=== PATIENT | female | born 1935 | race Caucasian/White ===

== ENCOUNTER → 2024-03-04 13:40 | Outpatient (REF) | payer OTHER, SELFPAY | LOC: HWRCS 13:40 | PROVIDERS: ATTENDING PHYSICIAN Internal Medicine Cardiovascular Disease; FAMILY PHYSICIAN Family Medicine | DX: I35.0 Nonrheumatic aortic (valve) stenosis (principal) | CPT/HCPCS: 93306 ==

== ENCOUNTER 2024-04-08 07:19 | Day surgery (SDC) | payer OTHER, SELFPAY ==
[2024-04-08] VITALS (24 sets, daily range): BP systolic 118–169; BP diastolic 55–116; BMI 26.5
[2024-04-08] MEDS: NSS 216 ML IV (07:58)
[2024-04-08] MEDS: LOW STRENGTH ASPIRIN 81 MG PO (08:05)
[2024-04-08 08:12] LABS: Hematocrit 42.2 % (37.0-47.0); Hemoglobin 14.3 g/dL (12.0-16.0); Mean Corp Hgb Conc. 33.9 g/dL (33.0-37.0); Mean Corpuscular Hgb 30.4 pg (27.0-31.0); Mean Corpuscular Volume 89.8 fL (81.0-99.0); Mean Platelet Volume 10.2 fL (7.4-10.4); Platelet Count 184 10^3/uL (130-400); Red Cell Dist. Width 13.2 % (11.5-14.5); White Blood Cell Count 5.4 10^3/uL (4.8-10.8)
--- NOTE | 2024-04-08 08:19 | CONSULT.STRU ---
Consultation
-
Date/Time Consultation Requested: 04/08/2024
Date/Time Consultation Performed: 04/08/2024
Requesting Provider: Laurel Balbuena MD
Performing Provider: BARTOLO Cartagena
Reason for Consultation: /TAVR
Patient History
Physicians
Family Physician: Jose Pedraza MD
Outpatient Dress Cutter: Jeff David MD
Primary Dress Cutter: Jeff David MD
History of Present Illness
Mrs. Linares (Cierra) is a very pleasant 88 yof that presents with severe symptomatic aortic stenosis associated with SAINI. She states she is a very active patient including vacuuming her pool and house work that requires climbing a flight of stairs.
Patient also state she gets fleeting CP that last for several seconds without any other associated symptoms. Her echocardiogram from 03/04/2024 is notable for EF 70%, aortic valve P/m 78/53, YIFAN 0.7, pk korin. 4.43, trace AI, dense MAC, mild MR, mild
TR, PAP 23-25. The cardiac catheterization from today also shows MV disease. Discussed the pathophysiology and treatment options of /CAD including SAVR/CABG vs. PCI/TAVR. Explained the evaluation process comprising of blood work, CT scan, CT
surgical consult, dental clearance, and a heart team discussion. TAVR booklet, contact information, prescriptions, and appointments give to patient and her daughter. Allowed for and answered questions at bedside.
Past Medical History
Past Medical History: Hypothyroidism, Valvular Disease (Aortic stenosis) and Other (hyperlipidemia, breast calcifications, bilateral breast Ca with radiation)
Past Surgical History
Past Surgical History: Hysterectomy, Orthopedic ((R) TKA) and Other (lumpectomy x2, right arm lymph node resection, capsulectomy of Lens)
Dental History
Dr. Zachary Zarco-- Patient states she is UTD
Family History
Mother: at Age
Father: at Age
Family Medical History: Cancer
Social History
Alcohol: Occasional
Drug: None
Tobacco: Non-Smoker
Personal:
Living: With Spouse
Allergies
Allergy/AdvReac Type Severity Reaction Status Date / Time
metformin Allergy Diarrhea Verified 04/08/24 07:34
sulfite Allergy Diarrhea Verified 04/08/24 07:34
tamoxifen Allergy GI ISSUES Verified 04/08/24 07:34
Home Medications
�Medication �Instructions �Recorded �Confirmed �Type
levothyroxine 75 mcg tablet 75 mcg PO DAILY AT 0700 Thyroid 04/12/22 04/08/24 History
calcium polycarbophil 625 mg 625 mg PO DAILY Constipation 07/13/22 04/08/24 History
tablet (Fiber (calcium
polycarbophil))
glucosamine sulfate 500 mg tablet 500 mg PO BID joint health 07/13/22 04/08/24 History
(Glucosamine)
multivitamin 1 tab PO DAILY Supplement 07/13/22 04/08/24 History
omega 5-mdv-goz-fish oil 1,000 mg 1 cap PO BID High cholesterol 07/13/22 04/08/24 History
(120 mg-180 mg) capsule (Fish Oil)
acetaminophen 500 mg capsule 1,000 mg (2 x 500 mg) PO Q6H #30 07/24/22 04/08/24 Rx
caps
aspirin 325 mg tablet 325 mg PO DAILY #28 tabs 07/24/22 04/08/24 Rx
docusate sodium 100 mg capsule 100 mg PO BID #30 caps 07/24/22 04/08/24 Rx
aspirin 81 mg chewable tablet 81 mg PO DAILY 04/08/24 04/08/24 History
STS%
STS %: 6.57
Review of Systems
-
History Source: Patient
General: Reports Fatigue
HEENT: Reports No Symptoms
Respiratory: Reports SAINI
Cardiac: Reports Chest Pain (fleeting chest pain that last several seconds) and CAD
Abdomen/GI: Reports No Symptoms
: Reports No Symptoms
Musculoskeletal: Reports No Symptoms
Skin: Reports No Symptoms
Neurological: Reports No Symptoms
Vascular: Reports No Symptoms
Physical Exam
Vital Signs
Temp 97.5 F 04/08/24 07:39
Pulse 65 04/08/24 07:59
Resp Rate 20 04/08/24 07:59
Can the patient verbally communicate their pain? Yes 04/08/24 07:54
Actual Weight 72.1 kg 04/08/24 07:38
Body Mass Index (BMI) 26.5 04/08/24 07:38
Labs
03/05/2024
HH: 14.5/43.6
Plt: 144K
BUN/Creatinine: 20/0.9
GFR: 62
Diagnostic Studies
Echocardiogram 03/04/2024:
CONCLUSIONS
Normal left ventricular size, wall thickness and systolic function. No regional
wall motion abnormalities are seen. LV ejection fraction is 70% by Lorenzana's
method of discs. Diastolic function indeterminate.
Normal right ventricular size and function.
Indexed LA volume is mildly abnormal (35 mL/m2).
Mild mitral regurgitation.
Calcified, trileaflet aortic valve with peak and mean gradients of 78 and 53
mmHg, respectively. Estimated YIFAN is 0.7 cm2, using an LVOT of 1.8 cm. Severe
aortic stenosis. Trace aortic regurgitation.
Mild tricuspid regurgitation. Estimated pulmonary artery pressure of 23-25
mmHg, assuming a right atrial pressure of 3 mmHg.
Compared to the previous echo 07/17/2023, there is little significant change.
Cardiac Catheterization 04/08/2024:
CONCLUSIONS
1. Heavily calcified coronary arteries with significant at least two-vessel coronary artery disease.
2. Mid LAD 80 to 90% stenosis at the level of the takeoff of the major diagonal branch with extension of disease into the ostium of the diagonal (Davis 1, 1, 1).
3. Two serial lesions in the mid RCA up to 60 to 70%, calcified
4. Known severe symptomatic aortic stenosis based on last echocardiogram with mean transaortic gradient of 53 mmHg, aortic valve area of 0.7 cm�
5. Multiple attempts were made to obtain IFR of the mid RCA lesions however unsuccessful due to significant drift in 2 separate wires.
RECOMMENDATIONS
1. Heart team discussion with structural heart team in regards to best management approach given significant multivessel coronary artery disease and severe symptomatic aortic stenosis.
2. Aggressive management of cardiovascular risk factors.
Exam
General: Well Developed and Well Nourished
HEENT: Normocephalic and PERRLA
Neck: Trachea Midline
Respiratory: Clear
Cardiac: Regular Rhythm and Murmur (II/ MALINDA)
GI: Soft and Non Tender
Rectal: Deferred by Provider
Skin: Warm and Dry
Neuro: Awake, Alert, Oriented and AO x 3
Psych: Calm
Assessment / Plan
-
Aortic stenosis
Continue TAVR evaluation
Trend creatinine after contrast administration (Rx given)
TAVR CT scan (04/28)
CT surgical consult ([facility] 04/28)
Frailty testing and KCCQ12 at consult
Continue aspirin
Dental clearance
Heart team discussion
CaD--Mid LAD 80 to 90% stenosis at the level of the takeoff of the major diagonal branch with extension of disease into the ostium of the diagonal, two serial lesions in the mid RCA up to 60 to 70%, calcified.
Plan for PCI after CT scan and TAVR to follow
Continue aspirin and atorvastatin
Data Reviewed
-
EKG: Tracing Personally Visualized and interpreted (NSR with 1st degree AVB)
Assurance Senior: Report Reviewed by me and Discussed with Physician
Echo: Report Reviewed by me and Discussed with Physician
Labs: Labs Reviewed by me
Old Records: Reviewed (Dr. David OV)
Total Time Spent with Patient (in minutes): 45
[2024-04-08 08:33] LABS: Blood Urea Nitrogen 26 mg/dl (7-17); Calcium 9.8 mg/dl (8.4-10.2); Carbon Dioxide 25 mmol/L (22-30); Chloride 107 mmol/L (98-107); Estimated Creatinine Clearance 51 ml/min; Glucose 122 mg/dl (70-99); Potassium 4.2 mmol/L (3.5-5.1); Sodium 141 mmol/L (135-145); eGFR > 60.00
[2024-04-08 10:39] LABS: ACT-LR - POC 281 Seconds (116-155)
[2024-04-08 10:55] LABS: ACT-LR - POC 290 Seconds (116-155)
[2024-04-08 11:20] LABS: ACT-LR - POC 282 Seconds (116-155)
[2024-04-08 12:30] LABS: ACT-LR - POC 210 Seconds (116-155)
[2024-04-08] MEDS: NORVASC 5 MG PO (12:32)
[2024-04-08 13:28] LABS: ACT-LR - POC 192 Seconds (116-155)
[2024-04-08 14:20] LABS: ACT-LR - POC 181 Seconds (116-155)
--- NOTE | 2024-04-08 14:28 | ITS.CL.CATH ---
[facility] - Catheterization
Cardiac Catheterization
Procedure Report:
LEFT HEART CATHETERIZATION
Date of Procedure: April 08, 2024
Referring: Jeff David
PROCEDURES:
1. Left heart cath, coronary angiogram.
2. Ultrasound guided access.
3. Multiple attempts were made to obtain IFR of the mid RCA lesions however unsuccessful due to significant drift in 2 separate wires.
INDICATION: Patient is an 88-year-old female with past medical history of hyperlipidemia, not on a statin, hypothyroidism, breast cancer status post radiation x 2 in 1991 with recurrence in 2019 who presents today for a left heart catheterization
prior to being evaluated for possible transcatheter aortic valve replacement for severe symptomatic aortic stenosis in the setting of ongoing dyspnea on exertion. Last echocardiogram is from March 04, 2024 showing LVEF of 70%, mild MR, severe AAS with
transaortic mean gradient of 53 mmHg, aortic valve area of 0.7 cm�
ACCESS:
1. Right radial artery, 5 Korean sheath, under ultrasound guidance. Given significant right subclavian artery stenosis this access had to be aborted.
2. Right common femoral artery, 5 Korean sheath, under ultrasound guidance.
HEMODYNAMICS : (mmHg)
AO (s/d) : 165/73
CORONARY FINDINGS: Heavily calcified coronary arteries and only calcified aortic valve. The left coronary artery was selectively engaged using a 5 Korean JL 5 diagnostic catheter after failing with a JL 4 diagnostic catheter.
DOMINANCE: Right
LEFT MAIN: The left main artery is a large-caliber vessel which gives rise to the left anterior descending artery and the left circumflex artery. There is minimal luminal irregularities.
LEFT ANTERIOR DESCENDING: The left into descending artery is a medium-caliber vessel which gives rise to a large caliber diagonal branch as it courses through the anterior interventricular groove towards the apex. There is a calcified 80 to 90%
stenosis in the mid LAD at the level of the takeoff of the diagonal branch with the ostium of the diagonal branch also involved (Davis 1, 1, 1)
CIRCUMFLEX: The left circumflex artery is a medium caliber vessel which gives rise to 1 major branching obtuse marginal branch. Mid left circumflex into OM1 has diffuse 30 to 40% stenosis
RIGHT CORONARY ARTERY: The right coronary artery is a large-caliber, dominant vessel which gives rise to the right posterior descending artery and the right posterolateral system. It is heavily calcified with 2 serial 60 to 70% stenosis in the mid
RCA. There is mild diffuse atherosclerotic plaque otherwise. iFR was attempted with goal to further stratify in the setting of significant mid LAD and diagonal disease however despite attempting to different wires, there was continuously
significant amount of drift
HEMODYNAMIC ASSESSMENT OF THE MID RCA WITH A VERRATA WIRE: The origin of the right was cannulated with a 5 Fr JR4 guide catheter. Intravenous heparin was administered and the ACT was followed during the procedure. Two hundred micrograms of
intracoronary nitroglycerin was given through the guide catheter. A VERRATA wire was advanced to the guide catheter tip and normalized in the proximal RCA. We attempted multiple different wires and had difficulty initially advancing the wire into
the distal vessel due to significant interaction with the calcium within the vessel despite attempting different beds to the tip of the wire. Eventually when we succeeded advancing our wire into the distal vessel, we recorded multiple IFR values
that were below the ischemic threshold however upon pullback of the wire there were significant drift noted. We re-normalized and attempted to advance the wire again however ran into the same issue which persisted despite using a second Verrata
wire so at that point we decided to not continue further.
SEDATION: 82 minutes of procedural sedation was utilized. An independent medical case manager was present to assist with and help manage the patient's level of consciousness and physiologic status.
RADIATION SUMMARY: Fluoro Time (min): 28.5, Dose (mGy): 1025.3, DAP (Gy.cm2) : 86.14
Closure Device:
1. Vascular band over right radial artery, 10 cc of air.
2. Manual pressure will be held over the right common femoral arterial access once ACT drops below 170 ms
CONCLUSIONS
1. Heavily calcified coronary arteries with significant at least two-vessel coronary artery disease.
2. Mid LAD 80 to 90% stenosis at the level of the takeoff of the major diagonal branch with extension of disease into the ostium of the diagonal (Davis 1, 1, 1).
3. Two serial lesions in the mid RCA up to 60 to 70%, calcified
4. Known severe symptomatic aortic stenosis based on last echocardiogram with mean transaortic gradient of 53 mmHg, aortic valve area of 0.7 cm�
5. Multiple attempts were made to obtain IFR of the mid RCA lesions however unsuccessful due to significant drift in 2 separate wires.
RECOMMENDATIONS
1. Heart team discussion with structural heart team in regards to best management approach given significant multivessel coronary artery disease and severe symptomatic aortic stenosis.
2. Aggressive management of cardiovascular risk factors.
Copy to: Jeff David
Laurel Balbuena MD, FACC, [facility]
[2024-04-08] MEDS: NSS 1000 IV (14:41)
== END 2024-04-08 19:25 | disposition home or self-care (01) ==
LOC: CATH 07:19
PROVIDERS: ATTENDING PHYSICIAN Internal Medicine Interventional Cardiology; FAMILY PHYSICIAN Family Medicine
DX: I08.3 Combined rheumatic disorders of mitral, aortic and tricuspid valves (principal); R06.02 Shortness of breath; I25.10 Atherosclerotic heart disease of native coronary artery without angina pectoris; I44.0 Atrioventricular block, first degree; E78.5 Hyperlipidemia, unspecified; E03.9 Hypothyroidism, unspecified; Z85.3 Personal history of malignant neoplasm of breast; Z79.82 Long term (current) use of aspirin
CPT/HCPCS: 99152; 99153; C1894; C1769; 80048; 85027; 85347; 93454; 93571; Q9967

== ENCOUNTER → 2024-04-28 09:15 | Outpatient (REF) | payer OTHER, SELFPAY | LOC: RAD 09:15 | PROVIDERS: ATTENDING PHYSICIAN Nurse Practitioner Acute Care; FAMILY PHYSICIAN Family Medicine | DX: I35.0 Nonrheumatic aortic (valve) stenosis (principal) | CPT/HCPCS: 74174; 75572; Q9967 ==

== ENCOUNTER 2024-05-19 15:17 | Inpatient (IN) | payer OTHER, SELFPAY ==
[2024-05-19 11:57] VITALS: BP 169/66
[2024-05-19 12:43] VITALS: BMI 27.4
[2024-05-19 12:49] LABS: % Basophils 0.8 % (0-2); % Eosinophils 1.2 % (0-6); % Immature Granulocytes 0.5 % (0-0.5); % Lymphocytes 24.2 % (20.5-51.1); % Monocytes 9.5 % (1.7-9.3); % Neutrophils 63.8 % (42.2-75.2); Absolute Basophils 0.1 10^3/uL (0-0.2); Absolute Eosinophils 0.1 10^3/uL (0-0.7); Absolute Lymphocytes 1.5 10^3/uL (1.2-3.4); Absolute Monocytes 0.6 10^3/uL (0.1-0.6); Absolute Neutrophils 3.9 10^3/uL (1.4-6.5); Hematocrit 32.5 % (37.0-47.0); Hemoglobin 11.2 g/dL (12.0-16.0); Mean Corp Hgb Conc. 34.5 g/dL (33.0-37.0); Mean Corpuscular Hgb 31.5 pg (27.0-31.0); Mean Corpuscular Volume 91.5 fL (81.0-99.0); Mean Platelet Volume 10.8 fL (7.4-10.4); Nucleated Red Blood Cells % 0 %; Platelet Count 136 10^3/uL (130-400); Red Blood Cell Count 3.55 10^6/uL (4.20-5.40); Red Cell Dist. Width 13.7 % (11.5-14.5); White Blood Cell Count 6.1 10^3/uL (4.8-10.8)
[2024-05-19 12:59] LABS: INR 1.11; PT 14.1 Sec (11.4-14.6)
[2024-05-19 13:01] LABS: APTT 35.1 Sec (23.4-35.0)
[2024-05-19 13:02] LABS: ALT (SGPT) 36 U/L (0-35); AST (SGOT) 47 U/L (14-36); Albumin 4.4 g/dl (3.5-5.0); Alkaline Phosphatase 67 U/L (38-126); Blood Urea Nitrogen 32 mg/dl (7-17); Calcium 9.9 mg/dl (8.4-10.2); Carbon Dioxide 25 mmol/L (22-30); Chloride 106 mmol/L (98-107); Estimated Creatinine Clearance 48 ml/min; Glucose 91 mg/dl (70-99); Potassium 4.3 mmol/L (3.5-5.1); Sodium 139 mmol/L (135-145); Total Bilirubin 0.8 mg/dl (0.2-1.3); eGFR > 60.00
--- NOTE | 2024-05-19 13:04 | ED.GENMED ---
History of Present Illness
General
Chief Complaint: Rectal Bleeding
Source: patient
Exam Limitations: none
Time Seen by Provider: 05/19/24 12:43
Nursing documentation reviewed up to this point in time: agreed with
History of Present Illness
History of Present Illness:
88 y/o F with ckd, htn, aortic stenosis, CAD
is scheduled to have cardiac stents tomorrow in prep for AVR
but about 3 days ago started having black tarry stool, was once a day for 2 days and then last night she had 2 'blow outs' which were deep red color and colored the bowl
she has had mild upper abd pain
no thinners
takes baby asa, lsat dose yesterday
no h/o PUD but she has had rectal bleeding before secondary to an infectious colitis years ago
Past History
Past History
ED Past Medical History: Cancer (Breast cancer), Hypercholesterolemia, Valvular disease (Aortic stenosis), Hypothyroidism and Other (Cataracts)
ED Past Surgical History: Gynecological (cataracts) and Orthopedic
Social History
Tobacco: Non-smoker
Alcohol: None
Review of Systems
Review of Systems
Allergies reviewed?: Yes
All Other Systems: Not applicable
Phy Exam
Physical Exam
Physical Exam:
GENERAL: Alert , in no apparent distress, nontoxic, well-appearing
EYE: pupils equal and reactive
NECK: Supple
ENT: o/p clr, mmm.
CARDIAC: Regular rate and rhythm . Loud systolic heart murmur
LUNGS: Clear breath sounds bilaterally, no acute respiratory distress, no wheezes/rales/rhonchi
ABDOMEN: Soft, without focal tenderness, no r/g, no cvat, normal bowel sounds
rectal: melena stoolm deep red in vault, heme +
NEUROLOGICAL: Alert and oriented, no focal neuro deficits
SKIN: Warm and dry, skin intact.
MUSCULOSKELETAL: No edema, well perfused. neg trip's sign
PSYCH: Normal and appropriate interaction.
Course
Orders/Labs/Results
Orders:
Orders
05/19/24 12:26
Cardiac Monitoring- Treatment ONCE
IV Insert/Care/Rem.- Treatment PRN
O2 Therapy [RESP] Urgent
Titrate/Wean O2 to maintain O2 sat greater than (%): 93
Special Instructions: MAINTAIN CONTINOUS O2 SATS > OR = 93%
Pulse Ox/spot Check [RESP] Urgent
Quantity: 1
Special Instructions: ON ROOM AIR
05/19/24 12:28
Type+Screen Urgent
Complete Blood Count/With Diff Urgent
Comprehensive Metabolic Panel Urgent
PTT Urgent
Prothrombin Time Urgent
05/19/24 13:03
CT Abd/Pel (IV only)-DH only Urgent
Comment:
Reason For Exam: melena, abd pain
0.9% Sodium Chloride 500 ml [Nss] 500 ml IV BOLUS
Pantoprazole [Protonix IV] 40 mg IV NOW STA
05/19/24 14:40
CARDIOLOGY CONSULT Routine
Consulting Provider: Neville Neri
Was physician already notified: Yes
Reason for consult: reported gi bleed due for cath/ stents/ avr tmr
05/19/24 14:41
GASTROINTESTINAL CONSULT Routine
Consulting Provider: Chiquita Henderson
Was physician already notified: Yes
Reason for consult: gi bleed
05/19/24 15:05
Admit/Transfer Patient As Directed
Co-Sign Provider:
Level of Care: Inpatient admission
Assign to:: Telemetry
Physician / Group: jaden osman
Diagnosis: gi bleed , hx multivessel cad/ aortic stenosis
Reason for Telemetry: Arrhythmia
Date to Stop Telemetry: 05/22/24
Time to Stop Telemetry: 11:00
Reason for Hospitalization: gi bleed , hx multivessel cad/ aortic stenosis
Expected length of stay greater than two midnights?: Yes
ELOS- Estimated Length of Stay in days: 4
I certify the patient meets the requirements for IP care: Yes
Code Status As Directed
Resuscitation Status: Full Code
05/19/24 20:00
H&H Urgent
05/22/24 11:00
DC Protocol for Telemetry ONCE
Abnormal Lab Results
05/19/24
12:28
RBC 3.55 L 10^6/uL
(4.20-5.40)
Hgb 11.2 L g/dL
(12.0-16.0)
Hct 32.5 L %
(37.0-47.0)
MCH 31.5 H pg
(27.0-31.0)
MPV 10.8 H fL
(7.4-10.4)
Monocytes % 9.5 H %
(1.7-9.3)
APTT 35.1 H Sec
(23.4-35.0)
BUN 32 H mg/dl
(7-17)
AST 47 H U/L
(14-36)
ALT 36 H U/L
(0-35)
05/19/24 12:28
05/19/24 12:28
Vital Signs
Initial and Last Documented VS:
Initial Vital Signs
Temp Pulse Resp BP Pulse Ox
97.4 F 63 18 169/66 96
05/19/24 11:57 05/19/24 11:57 05/19/24 11:57 05/19/24 11:57 05/19/24 11:57
Last Documented Vital Signs
Temp Pulse Resp BP Pulse Ox
97.4 F 55 15 139/68 97
05/19/24 11:57 05/19/24 14:15 05/19/24 14:15 05/19/24 14:00 05/19/24 14:15
MDM/Problems Addressed
Differential Diagnosis Includes:
PUD, GI bleed, divertic
MDM/Problems Addressed:
88 y/o F with h/o
here with upper abd pain and rectal bleeding
black stool ffor a few days and turned to deep red
had some red bleeding last night, with larger volume melena
stable vitals
no thinners
on baby asa
heme + melena stool, formed, in vault
hg stable
protonix, fluids, admit
*Critical Care Note
Total Time (30-74mins, 75-104mins- exclusive of procedures): Not Applicable
ED Attending Note
-
Portions of this chart may have been created with voice recognition software.� Occasional wrong word or��sound alike� substitutions may have occurred due to the inherent limitations of voice recognition software.
Discharge Plan
Departure
Patient Disposition: Admit
Date of Disposition: 05/19/24
Time of Disposition: 13:57
Admit to: Med/Surg
Presentation/result/management discussed w/ accepting MD/DO: Hospitalist
Condition: Fair
Covid-19: Not Applicable
Discharge Problem:
GI bleed
Interventions
Interventions:
*Risk Screen - Suicide Last Done: 05/19/24 14:49
*General Assessment Last Done: 05/19/24 14:49
*Neglect/Abuse Screening Last Done: 05/19/24 14:49
ED- Fall Risk Assessment Last Done: 05/19/24 12:43
DC-Zhnzid-Ogwezbrdsr Assessment Last Done: 05/19/24 12:43
ED- Cardiac Assessment Last Done: 05/19/24 12:43
ED- Pulmonary Assessment Last Done: 05/19/24 12:43
[2024-05-19] MEDS: PROTONIX IV 40 MG IV (13:15)
[2024-05-19] MEDS: NSS 500 IV (13:18)
[2024-05-19 13:36] VITALS: BP 151/76
[2024-05-19 14:00] VITALS: BP 139/68
--- NOTE | 2024-05-19 14:24 | HPS.HSE ---
Addendum entered and electronically signed by Leslie Mars MD 05/19/24 15:08:
aw and examined the patient.
The DORMITORY MAID or PA's note was reviewed and I agree with the note.
Comment: 88 y/o F hx of breast cancer, HLD, Aortic stenosis, hypothyroidism, CAD presents to ER for GI bleed. She reports 3 days ago she had black tarry stool, initially daily but last night with 2 episodes which were deep red color. Also reports
upper abd pain. Patient is on ASA but no blood thinners. reports prior rectal bleeding in the past due to infectious colitis. No CP, SOB or other complaints.
Physical Exam
General: Conversant; No Pain, Fever or Chills
HEENT: Normocephalic, Anicteric, Moist mucous membranes, PERRLA, Braham Conjunctivae and No Ptosis
Respiratory: Clear; No Wheezes, Rales or Rhonchi
Cardiac: S1/S2 and Regular Rhythm; No Murmur, Rub, Gallop or Peripheral Edema
GI: Soft, Non Distended, Distended (Generalized with diffuse tympany) and No Hepatosplenomegaly
Rectal: Hem Positive (melena per Er)
Genito-urinary: Deferred by me
Musculoskeletal: No Clubbing, No Cyanosis and No Edema
Skin: Warm and Dry; No Rash or Jaundice
Neuro: AO x 3, No Motor Deficits, Nonfocal/grossly intact, Cranial Nerves Intact and No Sensory Deficits; No Slurred Speech, Facial Droop or Tremors
Psych: Calm
Assessment:
melanotic GI bleed
- Hb 11.2, monitor with repeat Hb 8pm
- hold ASA if ok with Cardiology in setting of severe CAD
- PPI BID
- GI consulted
Aortic stenosis
CAD
Essential HTN
- due for cath+AVR this week
- Consult Cardiology
- continue Norvasc
hypothyroidism
- continue replacement
HLD
- statin
breast cancer
Chronic osteoarthritis of her left knee
History bilateral knee replacements
DVT ppx: SCDs
Code: Full
Original Note:
Family Physician
-
Family Physician: Jose Pedraza
Chief Complaint
-
Black stool
History of Present Illness
88-year-old female who reported 3 days ago 2 single episodes of formed black stool x1 each. she then states watery black stool today and abd generalized bloating. She is due tomorrow 05/20/2024 for aortic valve replacement for severe aortic
stenosis and cardiac stent placement. She is on baby aspirin with last dose yesterday 05/18/2024. She denies Pepto-Bismol, laxatives, NSAIDs, anticoagulation therapy, fever, chills, chest pain, palpitations, shortness of breath, cough, nausea,
vomiting, urinary symptoms. She has past medical history of aortic stenosis, multivessel CAD, HLD, breast cancer, cataracts, hypothyroidism, osteoarthritis of left knee
Medical History
Past Medical History
Past Medical History: Reports Other
Additional Past Medical History:
aortic stenosis severe
multivessel CAD,
HLD
breast cancer right breast 1992, left breast 2018 post with lumpectomy and radiation therapy
cataracts
hypothyroidism,
osteoarthritis of left knee
Past Surgical History: Reports Other
Additional Past Surgical History:
Bilateral knee replacements
Cardiac cath 04/08/2024
breast cancer right breast 1992, left breast 2019 post with lumpectomy and radiation therapy
Hysterectomy 1991
Social History
Tobacco: Non-smoker
Alcohol: None
Drug: None
Personal:
Living: With Family ()
Employment: Retired
Family History
Family History: Other (Father leukemia mother age 97 unsure)
Allergies / Home Medications
Allergies reflects when Allergies were last updated in [facility].
Home Medications with original date entered in [facility]
Allergy/Medication List:
Allergies
Allergy/AdvReac Type Severity Reaction Status Date / Time
metformin Allergy Diarrhea Verified 04/08/24 07:34
sulfite Allergy Diarrhea Verified 04/08/24 07:34
tamoxifen Allergy GI ISSUES Verified 04/08/24 07:34
Home Medications
levothyroxine 75 mcg tablet 75 mcg PO DAILY AT 0700 Thyroid 04/12/22
calcium polycarbophil 625 mg tablet (Fiber (calcium polycarbophil)) 625 mg PO DAILY Constipation 07/13/22
glucosamine sulfate 500 mg tablet (Glucosamine) 1,000 mg PO BID joint health 07/13/22
multivitamin 1 tab PO QPM Supplement 07/13/22
omega 1-vug-jgl-fish oil 1,000 mg (120 mg-180 mg) capsule (Fish Oil) 2 cap PO BID High cholesterol 07/13/22
aspirin 81 mg chewable tablet 81 mg PO QPM Blood Clot Prevention/Tx 04/08/24
atorvastatin 40 mg tablet 40 mg PO QPM #90 tabs 04/08/24
amlodipine 5 mg tablet 5 mg PO QPM 05/19/24
Review of Systems
-
History Source: Patient and Family (Daughter Maryan at bedside)
A 12 point ROS was completed and negative except as noted: Yes
Constitutional: Denies Fever or Fatigue
EENT: Denies Sore Throat or Runny Nose
Respiratory: Denies Cough
Cardiac: Denies Chest Pain, Diaphoresis, Palpitations or Syncope
Abdomen/GI: Reports Black Stools (X 3); Denies Abdominal Pain, Nausea, Vomiting or Diarrhea
: Denies Dysuria, Frequency, Flank Pain or Incontinence
Musculoskeletal: Denies Joint Pain or Edema
Skin: Denies Itching or Rash
Neurological: Denies Dizzy or Headache
Endocrine: Reports No Symptoms
Hematologic/Lymphatic: Reports No Symptoms
Psych: Reports Calm
Physical Exam
Vital Signs
Vital Signs
Temp Pulse Resp BP Pulse Ox
97.4 F 55 15 139/68 97
05/19/24 11:57 05/19/24 14:15 05/19/24 14:15 05/19/24 14:00 05/19/24 14:15
Physical Exam
General: Conversant; No Pain, Fever or Chills
HEENT: NormoCephalic, Anicteric, Moist mucous membranes, PERRLA, Braham Conjunctivae and No Ptosis
Respiratory: Clear; No Wheezes, Rales or Rhonchi
Cardiac: S1/S2 and Regular Rhythm; No Murmur, Rub, Gallop or Peripheral Edema
GI: Soft, Non Distended, Distended (Generalized with diffuse tympany) and No Hepatosplenomegaly
Rectal: Hem Positive (melena per Er)
Genito-urinary: Deferred by me
Musculoskeletal: No Clubbing, No Cyanosis and No Edema
Skin: Warm and Dry; No Rash or Jaundice
Neuro: AO x 3, No Motor Deficits, Nonfocal/grossly intact, Cranial Nerves Intact and No Sensory Deficits; No Slurred Speech, Facial Droop or Tremors
Psych: Calm
Laboratory Results
-
05/19/24 12:28
05/19/24 12:28
Laboratory Results
PT 14.1 Sec (11.4-14.6) 05/19/24 12:28
INR 1.11 05/19/24 12:28
APTT 35.1 Sec (23.4-35.0) H 05/19/24 12:28
Total Bilirubin 0.8 mg/dl (0.2-1.3) 05/19/24 12:28
AST 47 U/L (14-36) H 05/19/24 12:28
ALT 36 U/L (0-35) H 05/19/24 12:28
Alkaline Phosphatase 67 U/L (38-126) 05/19/24 12:28
Data Reviewed
-
CT Scan: Report Reviewed by me
Lab Data: Labs Reviewed by me
Impression/Plan
-
Impression/plan:
Admit to telemetry
#GI bleed
3 episodes rectal bleeding times past 3 days
Heme positive melena in ER by ED provider
-Consult GI
-Hgb 11.2 , check H&H 8 PM
-Hold aspirin 81 mg daily
-IV PPI
-Follow CBC
#Multivessel CAD
#Severe aortic stenosis
Was due for cath/aortic valve replacement tomorrow 05/20/2024
-Consult DCA
-Hold aspirin 81 mg daily-recommendations per cardiology
statin 40 mg every afternoon
04/08/2024: 1. Cardiac cath heavily calcified CAD with significant two-vessel CAD
2. Mid LAD 80-90 percent stenosis at the level of takeoff of the major diagonal branch with extension of disease into the ostium of the diagonal.
3. 2 serial lesions in the mid RCA up to 60 to 70% calcified
4. Known severe symptomatic aortic stenosis based on last echo with mean transaortic gradient 53 mmHg
5. Multiple attempts were made to obtain IFR of the mid RCA lesions however unsuccessful due to significant drift and 2 separate wires
#HTN�benign
BP 151/76
-Continue amlodipine 5 mg every afternoon
#Hypothyroidism
-Continue levothyroxine 75 mcg p.o. daily
#Chronic osteoarthritis of her left knee
History bilateral knee replacements
DVT prophylaxis
SCDs
Full code
--- NOTE | 2024-05-19 15:08 | W.PN.UPDATE ---
Update Note
Progress Note Update
for billing purposes
--- NOTE | 2024-05-19 15:15 | CON.GI ---
Addendum entered and electronically signed by Chiquita Poole Do, MD 05/19/24 18:37:
I saw and examined the patient.
The PENCILS WASHER's note was reviewed and I agree with the note.
Comment: Sangeeta is an 88yo M with h/o severe and CAD awaiting TAVR and [facility] who was admitted for melena. No NSAID use other than baby ASA. Vitals stable. NTTP, NABS, no HSM. Labs reviewed mild anemia
Impression
- Melena
ddx is AVM given aortic stenosis, PUD or Hpylori gastritis
- Severe
- CAD
- HTN
- Hyperlipidemia
- Hypothyroidism
Recommendations
- PPI IV BID
- Recommend EGD tomorrow
- Appreciate cardiology risk stratification
- Serial H/H
- 2 large bore IV
- Ok to c/w ASA 81mg
Will follow with you. Case d/w daughter and cardiology
Original Note:
Consultation
-
Date/Time Consultation Requested: 05/19/24 1440
Date/Time Consultation Performed: 05/19/24 1515
Requesting Provider: BARTOLO Sumner
Performing Provider: BARTOLO Hill, Chiquita Henderson MD
Reason for Consultation: black stools
Medical History
Chief Complaint / HPI
Chief Complaint: black stools
History of Present Illness:
Pt is a 88yo presents with hx CAD on ASA, breast CA with prior lumpectomy and radiation, hypercholesterolemia, hypothyroidism, with recent cath in April with attempted IFR to mid RCA lesion without success due to wires. She is due for repeat
cath tomorrow with plan for stenting and eventual TAVR. She now presents with 3 days of black tarry stools with some deep red stools. She reports 3 stools per day for last 5 day with normal pattern of 3 stools daily. On admission noted with hbg
11.2 (last hbg 14.3 04/08) with BUN 32. On admission also some mild transaminase with AST 47 and alt 36. Pt report hx GI bleeding after her honeymoon years ago with ? reaction to sulfates vs other. She denies other GI bleeding in past. No hx EGD
but prior colonoscopy last about 10 years ago at [facility] with polyps. She admits to occasional chronic abdominal pain but denies dysphagia, GERD, nausea, vomiting, diarrhea, constipation or prior bleeding. On chronic ASA but no other NSAID or
anticoagulation use. She reports some mild dizziness but relates recent of neice and spouse currently dealing with metastatic prostate CA with bone mets due for radiation.
Past Medical History
Past Medical History: CAD, Cancer (breast CA with lumpectomy and radiation), Hypercholesterolemia, Hypothyroidism, Valvular Disease () and Other (hepatomegaly with fatty liver , GI bleed with reaction to sulfites on past )
Social History
Tobacco: Non-Smoker
Alcohol: None
Drug: None
Personal:
Living: With Family
Employment: Retired
Family History
Family History: Other (no family )
Allergies / Home Medications
Allergy/AdvReac Type Severity Reaction Status Date / Time
metformin Allergy Diarrhea Verified 04/08/24 07:34
sulfite Allergy Diarrhea Verified 04/08/24 07:34
tamoxifen Allergy GI ISSUES Verified 04/08/24 07:34
�Medication �Instructions �Recorded
levothyroxine 75 mcg tablet 75 mcg PO DAILY AT 0700 Thyroid 04/12/22
calcium polycarbophil 625 mg 625 mg PO DAILY Constipation 07/13/22
tablet (Fiber (calcium
polycarbophil))
glucosamine sulfate 500 mg tablet 1,000 mg PO BID joint health 07/13/22
(Glucosamine)
multivitamin 1 tab PO QPM Supplement 07/13/22
omega 3-tji-wor-fish oil 1,000 mg 2 cap PO BID High cholesterol 07/13/22
(120 mg-180 mg) capsule (Fish Oil)
aspirin 81 mg chewable tablet 81 mg PO QPM Blood Clot 04/08/24
Prevention/Tx
amlodipine 5 mg tablet 5 mg PO QPM Blood Pressure 05/19/24
atorvastatin 40 mg tablet 40 mg PO QPM High Cholesterol 05/19/24
Review of Systems
-
History Source: Patient and Family
Constitutional: Reports No Symptoms
EENT: Reports No Symptoms
Respiratory: Reports Trouble Breathing (minimal with walking up steps )
Cardiac: Reports No Symptoms
Abdomen/GI: Reports Abdominal Pain (occasional chronic abdominal pain )
: Reports No Symptoms
Musculoskeletal: Reports No Symptoms
Skin: Reports No Symptoms
Neurological: Reports Dizzy (occasional )
Endocrine: Reports No Symptoms
Hematologic/Lymphatic: Reports Bleeding
Vital Signs
Temp Pulse Resp BP Pulse Ox
97.4 F 55 15 139/68 97
05/19/24 11:57 05/19/24 14:15 05/19/24 14:15 05/19/24 14:00 05/19/24 14:15
Physical Exam
Exam
General: Well Developed, Well Nourished and No Apparent Distress
HEENT: Normocephalic and Anicteric
Respiratory: Clear
Cardiac: Regular Rhythm and Murmur
Rectal: Black (formed stool sample brought by patient )
Musculoskeletal: No Clubbing and No Cyanosis
Skin: Warm and Dry
Neuro: Awake, Alert and AO x 3
Psych: Calm
Results
WBC 6.1 10^3/uL (4.8-10.8) 05/19/24 12:28
Hgb 11.2 g/dL (12.0-16.0) L 05/19/24 12:28
Hct 32.5 % (37.0-47.0) L 05/19/24 12:28
MCV 91.5 fL (81.0-99.0) 05/19/24 12:28
Plt Count 136 10^3/uL (130-400) 05/19/24 12:28
Absolute Neuts (auto) 3.9 10^3/uL (1.4-6.5) 05/19/24 12:
PT 14.1 Sec (11.4-14.6) 05/19/24 12:
INR 1.11 05/19/24 12:28
APTT 35.1 Sec (23.4-35.0) H 05/19/24 12:
Sodium 139 mmol/L (135-145) 05/19/24 12:
Potassium 4.3 mmol/L (3.5-5.1) 05/19/24 12:
Chloride 106 mmol/L (98-107) 05/19/24 12:
Carbon Dioxide 25 mmol/L (22-30) 05/19/24 12:28
BUN 32 mg/dl (7-17) H 05/19/24 12:28
Creatinine 0.8 mg/dL (0.6-1.0) 05/19/24 12:
Calcium 9.9 mg/dl (8.4-10.2) 05/19/24 12:28
Total Bilirubin 0.8 mg/dl (0.2-1.3) 05/19/24 12:28
AST 47 U/L (14-36) H 05/19/24 12:28
ALT 36 U/L (0-35) H 05/19/24 12:28
Alkaline Phosphatase 67 U/L (38-126) 05/19/24 12:28
Diagnostic Image Results:
05/19/24 CT IV only
Mild hepatomegaly with minimal diffuse fatty liver.
Small simple parapelvic left renal cysts and subcentimeter low-attenuation right renal lesion too small to characterize.
Diverticulosis of the descending and sigmoid colon. Evaluation of the intestinal tract markedly limited without oral contrast especially in the setting of melena. Colonic mass or other acute colonic abnormality cannot be excluded. In addition,
evaluation for active colonic bleeding cannot be assessed without angiographic technique.
Prior GI Procedures:
EGD: none
Colonoscopy: last 10 years ago [facility]
Assessment / Plan
-
Pt is a 88yo presents with hx CAD on ASA, breast CA with prior lumpectomy and radiation, hypercholesterolemia, hypothyroidism, with recent cath in April with attempted IFR to mid RCA lesion without success due to wires. She is due for repeat
cath tomorrow with plan for stenting and eventual TAVR. She now presents with 3 days of black tarry stools with some deep red stools. She reports 3 stools per day for last 5 day with normal pattern of 3 stools daily. On admission noted with hbg
11.2( last hbg 14.5 04/08) with BUN 32. On admission also some mild transaminase with AST 47 and alt 36. Pt report hx GI bleeding after her honeymoon years ago with ? reaction to sulfates vs other. She denies other GI bleeding in past. No hx EGD
but prior colonoscopy last about 10 years ago at [facility] with polyps.
-melena with reports of some red stool
-anemia
-CAD due for repeat cath with stenting 05/20
- due for furture TAVR
-breast CA with hx radiation in past
-elevated transaminase hepatomegaly/fatty liver on imaging
other med problems:
-HTN
-hypercholesterolemia
-hypothyroid
-hx reaction to sulfites in past
PLAN:
etiology of symptoms with concern for Upper GI bleed with black stools, drop in hbg and rise in BUN, -PUD with daily ASA use, ectasia, mass vs other less likely SB or lower GI bleed but did report some red stools
trend hbg
consider EGD if neg colonoscopy
cont PPI
ok for clears NPO in AM
reviewed with cardiology Dr. Joseph salgado to proceed with testing
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
updated family at bedside
-
-
Thank you for consultation and allowing me to participate in the patient's care. Please call the internal communications writer GI physician during the after hours with any questions or concerns.
--- NOTE | 2024-05-19 16:04 | CON.CAR ---
Addendum entered and electronically signed by Richard Ruiz MD 05/19/24 17:12:
Attending addendum: Patient seen and examined. PA note reviewed and findings confirmed by me. Briefly, this is an 88 y/o female with a past medical history notable for progressive aortic stenosis. She underwent coronary angiography on 04/08/2024
and was found to have a high-grade LAD/diagonal bifurcation stenosis and moderate coronary disease in the RCA. She was scheduled to return for elective stenting of the bifurcation LAD/diagonal stenosis on 05/20/2024 but presented to [place]
[facility] with melena. She has noticed some bright red blood while wiping following her bowel movements as well. She denies any chest pain or shortness of breath.
Her most recent echocardiogram from 03/04/2024 was notable for a mean aortic valve gradient of 53 mmHg
GEN: AAO x 3. No acute distress
HEENT: NC/AT, sclera are anicteric, hearing and nares are normal.
NECK: Supple. Normal JVP
LUNGS: Clear to bases bilaterally. No wheezing or rhonchi
CV: Regular rate and rhythm. Normal S1/S2. No S3, No S4. Murmur: 3/6 crescendo decrescendo murmur upper sternal border
ABD : Soft, NT, ND, No HSM. Bowel sounds are present.
EXT: No CCE
NEURO: No focal neurologic deficits
RECOMMENDATION:
-Consult GI service
-Cardiac catheterization and planned coronary intervention of LAD/diagonal bifurcation stenosis should be placed on hold until GI workup is completed. Post stenting she will need dual antiplatelet therapy
-She will need no additional cardiac evaluation before the planned procedure given the low risk nature of endoscopy/colonoscopy. She is asymptomatic and generally feels well. Reasonably active at home taking care of her with a multitude of
medical issues
-Continue aspirin but defer to GI input regarding ongoing aspirin use
-Further management decisions can be made after endoscopy is completed
Original Note:
Consultation
Consultation Request
Date/Time Consultation Performed: 05/19/24
Requesting Provider: Dr. Mars
Performing Provider: Bindu Briones PA-C for Dr. Ruiz
Reason for Consultation: GI bleed
Medical History
-
Chief Complaint: dark stool
History of Present Illness:
Patient is an 88 yo F with PMH of HLD, hypothyroidism, undergoing TAVR work up for severe . She had undergone cath 04/08 with mid LAD stenosis at level of takeoff of the major diagonal branch with extension of disease into diagonal as well as mid
RCA disease. She was planned for return to the Radiologic Technologist Chief for stenting on 05/20/2024. She states she started on Saturday with black stool. She states last evening she had 2 episodes of 'blowouts'. She reports some mild associated dizziness. Reports
some mild abd bloating/discomfort. She also states she noticed some bright red blood in her last several bowel movements. She denies chest pain. 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
metastatic prostate cancer.
PMH:
severe
LAD and RCA disease by cath 04/08/24
First degree av block
HTN
HLD
hypothyroidism
History of breast cancer status post lumpectomy and radiation therapy 2018
OA
Past Medical History
Past Medical History: Other (in HPI)
Social History
Tobacco: Non-Smoker
Alcohol: None
Personal:
Living: With Family
Employment: Retired
Allergies / Home Medications
Allergy/AdvReac Type Severity Reaction Status Date / Time
metformin Allergy Diarrhea Verified 04/08/24 07:34
sulfite Allergy Diarrhea Verified 04/08/24 07:34
tamoxifen Allergy GI ISSUES Verified 04/08/24 07:34
�Medication �Instructions �Recorded �Confirmed �Type
levothyroxine 75 mcg tablet 75 mcg PO DAILY AT 0700 Thyroid 04/12/22 05/19/24 History
calcium polycarbophil 625 mg 625 mg PO DAILY Constipation 07/13/22 05/19/24 History
tablet (Fiber (calcium
polycarbophil))
glucosamine sulfate 500 mg tablet 1,000 mg PO BID joint health 07/13/22 05/19/24 History
(Glucosamine)
multivitamin 1 tab PO QPM Supplement 07/13/22 05/19/24 History
omega 0-iok-mpo-fish oil 1,000 mg 2 cap PO BID High cholesterol 07/13/22 05/19/24 History
(120 mg-180 mg) capsule (Fish Oil)
aspirin 81 mg chewable tablet 81 mg PO QPM Blood Clot 04/08/24 05/19/24 History
Prevention/Tx
amlodipine 5 mg tablet 5 mg PO QPM Blood Pressure 05/19/24 05/19/24 History
atorvastatin 40 mg tablet 40 mg PO QPM High Cholesterol 05/19/24 05/19/24 History
Review of Systems
-
History Source: Patient and Family
All other systems: Negative unless noted
Physical Exam
Vital Signs
Temp Pulse Resp BP Pulse Ox
97.4 F 55 15 139/68 97
05/19/24 11:57 05/19/24 14:15 05/19/24 14:15 05/19/24 14:00 05/19/24 14:15
Lab Results
05/19/24 12:28
Physical Exam
General: No Apparent Distress and Comfortable
HEENT: Normocephalic, Anicteric and Moist Mucous Membranes
Respiratory: Clear and Non Labored Respirations
Cardiac: S1/S2, Regular Rhythm and Murmur
GI: Soft, Non Tender, Normal Bowel Sounds and Distended (mild)
Musculoskeletal: No Clubbing, No Cyanosis and No Edema
Skin: Warm and Dry
Neuro: AO x 3
Impression / Plan
-
Primary Baler: Dr. David
Assessment:
Presentation with dark stools, heme positive
Suspected upper GI bleed
severe , undergoing TAVR eval
LAD and RCA disease by cath 04/08/24
First-degree AV block
HTN
HLD
hypothyroidism
History of breast cancer status post lumpectomy and radiation therapy 2018
OA
ECHO 03/04/24: EF 70%, mild MR, severe aortic stenosis with peak/mean gradient 78/53 mmHg, YIFAN 0.7 cm�, trace AR, mild TR, PAP 23 to 25 mmHg
Plan:
-Patient presents with several days of dark stools.
-? Possible angioectasias secondary to severe
-Will postpone cath scheduled for 05/20. Radiologic Technologist Chief made aware
-Continue aspirin. Follow hemoglobin, 11.2 on arrival
-For EGD in a.m. discussed with GI
-Will need to reschedule cardiac catheterization once recovered from acute GI bleed
-Discussed with patient and family at bedside
Data Reviewed
-
EKG: Tracing Personally Visualized and interpreted
Medical Tests (Nuc Med, Echo etc): Report Reviewed by me
Labs: Labs Reviewed by me
Old Records: Reviewed
[2024-05-19 16:35] VITALS: BP 148/63
[2024-05-19 16:38] VITALS: BMI 25.8
--- NOTE | 2024-05-19 17:00 | PTCARENOTE ---
Pt recieved form ED. AAOx3, VSS. [facility]ed to [facility] Pt denies pain or discomfort
[2024-05-19] MEDS: LIPITOR 40 MG PO (17:17)
[2024-05-19] MEDS: NORVASC 5 MG PO (17:17)
[2024-05-19 19:37] VITALS: BP 111/42
[2024-05-19 20:48] LABS: Hematocrit 29.3 % (37.0-47.0); Hemoglobin 10.3 g/dL (12.0-16.0)
[2024-05-19 23:50] VITALS: BP 104/61
[2024-05-20] VITALS (12 sets, daily range): BP systolic 98–143; BP diastolic 48–77; PULSE 82; O2SAT 96–98; BMI 25.3
--- NOTE | 2024-05-20 02:58 | DOWNTIME ---
There was a [employer] Client Mail Handlers Supervisor Downtime on 05/20/2024 from 0100 to 05/20/2024 at 0255. Downtime documentation of patient's care, including medication administrations, has been reconciled in the electronic record per guidelines. Refer to the
patient's paper chart under the miscellaneous tab to see printed paper medication records and downtime forms.
[2024-05-20] MEDS: SYNTHROID 75 MCG PO (05:41)
[2024-05-20 07:28] LABS: ALT (SGPT) 28 U/L (0-35); AST (SGOT) 39 U/L (14-36); Albumin 3.3 g/dl (3.5-5.0); Alkaline Phosphatase 55 U/L (38-126); Blood Urea Nitrogen 26 mg/dl (7-17); Calcium 9.1 mg/dl (8.4-10.2); Carbon Dioxide 24 mmol/L (22-30); Chloride 107 mmol/L (98-107); Estimated Creatinine Clearance 46 ml/min; Glucose 97 mg/dl (70-99); Potassium 4.2 mmol/L (3.5-5.1); Sodium 139 mmol/L (135-145); Total Bilirubin 0.7 mg/dl (0.2-1.3); Total Protein 5.7 g/dl (6.3-8.2); eGFR > 60.00
[2024-05-20 07:29] LABS: % Basophils 0.8 % (0-2); % Eosinophils 5.3 % (0-6); % Immature Granulocytes 0.4 % (0-0.5); % Lymphocytes 27.6 % (20.5-51.1); % Monocytes 7.1 % (1.7-9.3); % Neutrophils 58.8 % (42.2-75.2); Absolute Eosinophils 0.3 10^3/uL (0-0.7); Absolute Lymphocytes 1.4 10^3/uL (1.2-3.4); Absolute Monocytes 0.4 10^3/uL (0.1-0.6); Hematocrit 29.2 % (37.0-47.0); Hemoglobin 9.7 g/dL (12.0-16.0); Mean Corp Hgb Conc. 33.2 g/dL (33.0-37.0); Mean Corpuscular Hgb 30.1 pg (27.0-31.0); Mean Corpuscular Volume 90.7 fL (81.0-99.0); Mean Platelet Volume 11.4 fL (7.4-10.4); Nucleated Red Blood Cells % 0 %; Platelet Count 121 10^3/uL (130-400); Red Blood Cell Count 3.22 10^6/uL (4.20-5.40); Red Cell Dist. Width 13.8 % (11.5-14.5); White Blood Cell Count 5.1 10^3/uL (4.8-10.8)
--- NOTE | 2024-05-20 08:43 | W.PN.HOSP.TC ---
Today's Communication/Plan
-
EGD today
Assessment / Plan
Assessment / Plan
Assessment:
melanotic GI bleed
- Hb 11.2 on admission, currently 9.7
- ok to continue ASA per GI/Cards
- PPI BID IV
- GI consulted; for EGD today
Aortic stenosis
CAD
Essential HTN
- was due for elective stenting of the bifurcation LAD/diagonal stenosis on 05/20/2024
- Cardiology following
- continue Norvasc
hypothyroidism
- continue replacement
HLD
- statin
breast cancer s/p XRT
Chronic osteoarthritis of her left knee
History bilateral knee replacements
DVT ppx: SCDs
Code: Full
Anticipated Discharge: 24 - 48 hours
Subjective/Interval History
-
Date of Service: May 20, 2024
BM last evening, blood noticed in bowel
Hb 9.7
denies any complaints, for EGD today
Objective Data
-
Labs:
Laboratory Results
05/19/24 05/20/24
20:40 06:42
WBC 5.1
Hgb 10.3 L 9.7 L
Hct 29.3 L 29.2 L
Plt Count 121 L
Sodium 139
Potassium 4.2
Chloride 107
Carbon Dioxide 24
BUN 26 H
Creatinine 0.8
Glucose 97
Calcium 9.1
Total Bilirubin 0.7
AST 39 H
ALT 28
Alkaline Phosphatase 55
Vital Signs:
Vital Signs
Temp Pulse Resp BP Pulse Ox
97.8 F 62 18 116/61 96
05/20/24 07:15 05/20/24 07:15 05/20/24 07:15 05/20/24 07:15 05/20/24 07:15
I&O
05/19/24 05/20/24 05/21/24
06:59 06:59 06:59
Intake Total 480 / 480
Balance 480 / 480
Physical Exam
-
General: No Apparent Distress
HEENT: Normocephalic and Atraumatic
Respiratory: Negative Wheezes
Cardiac: Regular Rhythm and S1/S2
GI: Soft and Nontender
Genito-urinary: No Costovertebral Tender
Musculoskeletal: No Edema
Neuro: AO x 3
Hematologic / Lymphatic: No Lymphadenopathy
Psych: Calm
Data Reviewed
-
Total Time Spent with Patient (in minutes): 44
Labs: Labs Reviewed by me
--- NOTE | 2024-05-20 10:29 | W.PN.UPDATE ---
Update Note
Progress Note Update
updated daughter
--- NOTE | 2024-05-20 10:30 | W.PN.UPDATE ---
Update Note
Progress Note Update
updated daughter, reviewed with cardiology
[2024-05-20] MEDS: DULCOLAX 10 MG PO (11:00)
--- NOTE | 2024-05-20 11:13 | W.PN.CARDCBS ---
Addendum entered and electronically signed by Laurel Balbuena MD 05/20/24 13:51:
I saw and examined the patient.
The Receiving Dock Checker's note was reviewed and I agree with the note.
Comment: Overall doing well. EGD without clear source of GI bleed. Plan for colonoscopy tomorrow following bowel prep.
Vital signs and lab work reviewed. Hemoglobin from a baseline of 14 down to 9. Most recent echocardiogram from March 04, 2024 with a transaortic mean gradient of 53 mmHg consistent with severe aortic stenosis. Heart catheterization on recent
coronary angiogram from April 08, 2024 showing a high-grade mid LAD lesion at the level of the takeoff of the diagonal branch with calcified at least moderate disease in the RCA.
On exam, patient is an elderly female in no acute distress, daughter at bedside, ANO x 3, regular rate, normal S1, soft S2, 3 out of 6 late peaking systolic ejection murmur, lungs are clear to auscultation bilaterally, abdomen is soft, nontender,
nondistended with active bowel sounds, warm extremities
Recommendations:
1. Cardiac interventions for now are on hold until GI workup is completed in terms of identifying source of potential GI bleeding. We discussed the fact that we would want to be comfortable post PCI with dual antiplatelet therapy and therefore it
is important to get her GI workup completed to make sure she can tolerate these medications.
2. Appreciate GI input. Plan for bowel prep and colonoscopy tomorrow. No additional cardiac evaluation is warranted before planned procedures given overall low risk of colonoscopy. Patient is currently asymptomatic and denies any active chest
discomfort or shortness of breath.
3. Continuing daily baby aspirin for now.
4. Ongoing discussions regarding cardiac interventions pending completion of GI workup and findings.
Discussed all of the above in detail with patient and daughter at bedside. Answered all of their questions.
Laurel Balbuena MD, [facility], [facility]
Original Note:
Today's Communication / Plan
-
for colonoscopy in AM
follow on tele
consider for gentle IVF overnight to avoid hypotension in setting of colon prep with severe
Impression / Plan
-
Primary Labor Specialist: Dr. David
Assessment:
Presentation with dark stools, heme positive
Suspected upper GI bleed
severe , undergoing TAVR eval
LAD and RCA disease by cath 04/08/24
First-degree AV block
HTN
HLD
hypothyroidism
History of breast cancer status post lumpectomy and radiation therapy 2018
OA
ECHO 03/04/24: EF 70%, mild MR, severe aortic stenosis with peak/mean gradient 78/53 mmHg, YIFAN 0.7 cm�, trace AR, mild TR, PAP 23 to 25 mmHg
Plan:
-Patient presents with several days of dark stools.
-s/p EGD 05/20 without clear etiology. for prep with colonoscopy in AM
-hgb down to 9.7. follow
-noted to be bradycardic overnight with some pauses all <2.5 seconds. no evidence of high grade av block (does have chronic 1st degree). not on av lesai blockers, continue to avoid. she reports she does snore at times, consider for OP sleep study
-in setting of colon prep with severe , would consider for gentle IV hydration overnight to avoid hypotension/dehydration. BP presently stable
-Will need to reschedule cardiac catheterization once recovered from acute GI bleed. no CP
-Discussed with patient and family at bedside
Progress Note - Labor Specialist
Subjective
Date of Service: May 20, 2024
Status post EGD. Denies chest pain, shortness of breath
Objective
Labs:
05/20/24 06:42
05/20/24 06:42
Labs
Hgb 9.7 g/dL (12.0-16.0) L 05/20/24 06:42
Hct 29.2 % (37.0-47.0) L 05/20/24 06:42
Plt Count 121 10^3/uL (130-400) L 05/20/24 06:42
PT 14.1 Sec (11.4-14.6) 05/19/24 12:28
INR 1.11 05/19/24 12:28
APTT 35.1 Sec (23.4-35.0) H 05/19/24 12:28
Sodium 139 mmol/L (135-145) 05/20/24 06:42
Potassium 4.2 mmol/L (3.5-5.1) 05/20/24 06:42
BUN 26 mg/dl (7-17) H 05/20/24 06:42
Creatinine 0.8 mg/dL (0.6-1.0) 05/20/24 06:42
Glucose 97 mg/dl (70-99) 05/20/24 06:42
Vital Signs and I&O:
Vital Signs
Temp Pulse Resp BP Pulse Ox
97.2 F 63 21 118/61 94
05/20/24 10:03 05/20/24 10:00 05/20/24 10:00 05/20/24 10:00 05/20/24 10:00
Vital Signs
Temp Pulse Resp BP Pulse Ox
97.2 F 63 21 118/61 94
05/20/24 10:03 05/20/24 10:00 05/20/24 10:00 05/20/24 10:00 05/20/24 10:00
Intake & Output
05/18/24 05/19/24 05/20/24 05/21/24
07:59 07:59 07:59 07:59
Intake Total 480 / 480 50 / 50
Balance 480 / 480 50 / 50
Physical Exam
Physical Exam
GEN: No distress, awake, alert, oriented x3
HEENT: supple, anicteric, mmm, eomi
LUNGS: CTA B/L, no wheezes/rales
CV: Reg, S1/S2, 2/6 syst LSB
EXT: No cyanosis, clubbing, edema
NEURO: Gross non-focal
SKIN: Warm, pink, dry. No rash
[2024-05-20 12:05] LABS: Iron 54 ug/dl (37-170)
[2024-05-20 12:15] LABS: Percent Saturation 15 % (20-50); Total Iron Binding Capacity 347 ug/dl (265-497)
--- NOTE | 2024-05-20 12:57 | PN.CDI ---
CDI
- -
CDI:
Physician Documentation Request
Admit Date: 05/19/24 15:17
Dear Doctor Madisyn,
Please review the following and provide your response in the progress notes.
Clinical Indicators:
PN, 05/20
melanotic GI bleed
- Hb 11.2 on admission, currently 9.7
- ok to continue ASA per GI/Cards
Laboratory Tests
05/19/24 05/19/24 05/20/24
12:28 20:40 06:42
Hgb 11.2 L 10.3 L 9.7 L
Hct 32.5 L 29.3 L 29.2 L
Based on the above and your clinical assessment, please clarify the most likely type of anemia evaluated, monitored and/or treated?
Acute blood loss anemia with baseline chronic anemia (Specify type)
Anemia of chronic disease - indicate if neoplastic disease, CKD or other
Other(please specify)
Use of terms such as suspected, likely, concern for, or probable (associated with a specific diagnosis that is being evaluated, monitored, or treated as if it exists) are acceptable and can be coded in the inpatient setting, when documented at the
time of discharge.
Thank you,
Halima Conroy RN BSN CCDS
CDI Specialist
please contact via tiger text
Please use your independent medical judgment in providing your response.
[2024-05-20] MEDS: NULYTELY SOLUTION 4 LITERS PO (13:03)
[2024-05-20 13:16] LABS: Ferritin 42.9 ng/ml (11.1-264.0)
[2024-05-20 13:48] LABS: Folate > 20.0 ng/ml (2.76-20); Vitamin B12 837 pg/ml (239-931)
--- NOTE | 2024-05-20 16:30 | CM ---
CM met with Sangeeta to complete IA. Sangeeta lives with her Johnny in a 2 story home with 1+1 entry steps. 12 steps to bedroom and bathroom. Sangeeta has been (I) amb and adl's [facility]; no DME. She anticipates discharge to home with no
needs.
Plan: Discharge to home with when medically ready. No needs identified at this time.
PCP: Dr. Pedraza
Pharm: [facility] [place]
[2024-05-20] MEDS: LOW STRENGTH ASPIRIN 81 MG PO (17:23)
[2024-05-20] MEDS: NORVASC 5 MG PO (17:23)
[2024-05-20] MEDS: LIPITOR 40 MG PO (17:23)
[2024-05-20] MEDS: NSS 1000 IV (19:36)
[2024-05-21] VITALS (21 sets, daily range): BP systolic 65–162; BP diastolic 45–89
[2024-05-21] MEDS: SYNTHROID 75 MCG PO (05:11)
[2024-05-21 07:58] LABS: % Basophils 0.9 % (0-2); % Eosinophils 5.3 % (0-6); % Immature Granulocytes 0.4 % (0-0.5); % Lymphocytes 30.2 % (20.5-51.1); % Monocytes 8.3 % (1.7-9.3); % Neutrophils 54.9 % (42.2-75.2); Absolute Basophils 0.1 10^3/uL (0-0.2); Absolute Eosinophils 0.3 10^3/uL (0-0.7); Absolute Lymphocytes 1.6 10^3/uL (1.2-3.4); Absolute Monocytes 0.5 10^3/uL (0.1-0.6); Hematocrit 26.6 % (37.0-47.0); Hemoglobin 9.1 g/dL (12.0-16.0); Mean Corp Hgb Conc. 34.2 g/dL (33.0-37.0); Mean Corpuscular Hgb 30.5 pg (27.0-31.0); Mean Corpuscular Volume 89.3 fL (81.0-99.0); Mean Platelet Volume 10.8 fL (7.4-10.4); Nucleated Red Blood Cells % 0 %; Platelet Count 125 10^3/uL (130-400); Red Blood Cell Count 2.98 10^6/uL (4.20-5.40); Red Cell Dist. Width 13.9 % (11.5-14.5); White Blood Cell Count 5.4 10^3/uL (4.8-10.8)
[2024-05-21 08:54] LABS: ALT (SGPT) 25 U/L (0-35); AST (SGOT) 38 U/L (14-36); Albumin 3.2 g/dl (3.5-5.0); Alkaline Phosphatase 54 U/L (38-126); Blood Urea Nitrogen 21 mg/dl (7-17); Calcium 8.7 mg/dl (8.4-10.2); Carbon Dioxide 25 mmol/L (22-30); Chloride 110 mmol/L (98-107); Estimated Creatinine Clearance 46 ml/min; Glucose 103 mg/dl (70-99); Potassium 4.1 mmol/L (3.5-5.1); Sodium 139 mmol/L (135-145); Total Bilirubin 0.6 mg/dl (0.2-1.3); Total Protein 5.5 g/dl (6.3-8.2); eGFR > 60.00
--- NOTE | 2024-05-21 09:10 | W.PN.CARDCBS ---
Addendum entered and electronically signed by Laurel Balbuena MD 05/22/24 08:08:
Late note entry
Pt seen and evaluated yesterday afternoon
I saw and examined the patient.
The Construction Driller's note was reviewed and I agree with the note.
Comment: Overall doing well. EGD without clear source of GI bleed. s/p colonoscopy today with copious amount of blood, new and old, so sent for urgent bleeding scan which was positive and then IR for embolization with arteriogram which was
negative.
Vital signs and lab work reviewed. Hemoglobin from a baseline of 14 down to 9. Most recent echocardiogram from March 04, 2024 with a transaortic mean gradient of 53 mmHg consistent with severe aortic stenosis. Heart catheterization on recent
coronary angiogram from April 08, 2024 showing a high-grade mid LAD lesion at the level of the takeoff of the diagonal branch with calcified at least moderate disease in the RCA.
On exam, patient is an elderly female in no acute distress, daughter at bedside, A+O x 3, regular rate, normal S1, soft S2, 3 out of 6 late peaking systolic ejection murmur, lungs are clear to auscultation bilaterally, abdomen is soft, nontender,
nondistended with active bowel sounds, warm extremities
Recommendations:
1. Cardiac interventions are on hold until GI workup is completed in terms of identifying source of potential GI bleeding and treatment. We discussed the fact that we would want to be comfortable post PCI with dual antiplatelet therapy and
therefore it is important to get her GI workup completed to make sure she can tolerate these medications.
2. Appreciate GI input. Follow up on plan given arteriogram was negative in regards to further workup that may be warranted.
3. Continuing daily baby aspirin for now.
4. Ongoing discussions regarding cardiac interventions pending completion of GI workup and findings.
Discussed all of the above in detail with patient and daughter at bedside. Answered all of their questions.
Laurel Balbuena MD, [facility], [facility]
Original Note:
Today's Communication / Plan
-
Holding off on cath given active bleed
Impression / Plan
-
Primary Grease Worker: Dr. David
Assessment:
Presentation with dark stools, heme positive
Suspected upper GI bleed
severe , undergoing TAVR eval
LAD and RCA disease by cath 04/08/24
First-degree AV block
HTN
HLD
hypothyroidism
History of breast cancer status post lumpectomy and radiation therapy 2018
OA
ECHO 03/04/24: EF 70%, mild MR, severe aortic stenosis with peak/mean gradient 78/53 mmHg, YIFAN 0.7 cm�, trace AR, mild TR, PAP 23 to 25 mmHg
Plan:
-Patient presented with several days of dark stools.
-s/p EGD 05/20 without clear etiology.
-Colonoscopy 05/21 noted diffuse dark clots throughout the colon w/ red blood noted in terminal ileum.
-Underwent NM GI bleeding scan which was positive for active bleeding either within the cecum or distal small bowel.
-hgb down to 9.1. s/p 1 unit PRBCs 05/21.
-Noted to be bradycardic at times overnight with some pauses. Not on av lesia blockers, continue to avoid. She reports she does snore at times, consider for OP sleep study
-Will need to follow clinically to see if she would be able to tolerate DAPT. For now holding off on cardiac cath/PCI.
-BP stable on current medications.
Progress Note - Grease Worker
Subjective
Date of Service: May 21, 2024
Objective
Labs:
05/21/24 07:37
05/21/24 07:37
Labs
Hgb 9.1 g/dL (12.0-16.0) L 05/21/24 07:37
Hct 26.6 % (37.0-47.0) L 05/21/24 07:37
Plt Count 125 10^3/uL (130-400) L 05/21/24 07:37
PT 14.1 Sec (11.4-14.6) 05/19/24 12:28
INR 1.11 05/19/24 12:28
APTT 35.1 Sec (23.4-35.0) H 05/19/24 12:28
Sodium 139 mmol/L (135-145) 05/21/24 07:37
Potassium 4.1 mmol/L (3.5-5.1) 05/21/24 07:37
BUN 21 mg/dl (7-17) H 05/21/24 07:37
Creatinine 0.8 mg/dL (0.6-1.0) 05/21/24 07:37
Glucose 103 mg/dl (70-99) H 05/21/24 07:37
Vital Signs and I&O:
Vital Signs
Temp Pulse Resp BP Pulse Ox
98.2 F 57 23 123/55 96
05/21/24 08:12 05/21/24 09:00 05/21/24 09:00 05/21/24 09:00 05/21/24 09:00
Vital Signs
Temp Pulse Resp BP Pulse Ox
98.2 F 57 23 123/55 96
05/21/24 08:12 05/21/24 09:00 05/21/24 09:00 05/21/24 09:00 05/21/24 09:00
Intake & Output
05/19/24 05/20/24 05/21/24 05/22/24
06:59 06:59 06:59 06:59
Intake Total 480 / 480 1730 / 1730
Balance 480 / 480 1730 / 1730
Physical Exam
Physical Exam
GEN: No distress, awake, alert, oriented x3
HEENT: supple, anicteric, mmm, eomi
LUNGS: CTA B/L, no wheezes/rales
CV: Reg, S1/S2, 2/6 syst LSB
EXT: No cyanosis, clubbing, edema
NEURO: Gross non-focal
SKIN: Warm, pink, dry. No rash
--- NOTE | 2024-05-21 09:15 | W.PN.HOSP.TC ---
Today's Communication/Plan
-
1 unit PRBC
CT-A urgently
IMU tx
d/w daughter
Assessment / Plan
Assessment / Plan
Assessment:
melanotic GI bleed
Acute blood loss anemia with chronic baseline AOCD
- Hb 11.2 on admission, currently 9.1
- ok to continue ASA per GI/Cards given cardiac history
- PPI BID IV
- GI following
- s/p EGD 05/20: 2cm hiatal hernia otherwise normal
- s/p Colonoscopy 05/21: Non-bleeding internal hemorrhoids were found during retroflexion. The hemorrhoids were medium-sized. Multiple diverticula were found in the sigmoid colon and descending colon. The terminal ileum contained red blood. Diffuse
dark clots throughout colon more copious in right colon. A small polyp was found in the ascending colon. The polyp was sessile. Polypectomy was not attempted due to active bleeding. Acute blood loss anemia with baseline anemia of chronic disease
- for urgent CT-A today
- 1 unit PRBC ordered
Aortic stenosis
CAD
Essential HTN
- was due for elective stenting of the bifurcation LAD/diagonal stenosis on 05/20/2024
- Cardiology following
- continue Norvasc
hypothyroidism
- continue replacement
HLD
- statin
breast cancer s/p XRT
Chronic osteoarthritis of her left knee
History bilateral knee replacements
DVT ppx: SCDs
Code: Full
Anticipated Discharge: > 48 hours
Subjective/Interval History
-
Date of Service: May 21, 2024
colonoscopy obtained with old and fresh blood deemed from a small bowel source
patient sent for CT-A
Objective Data
-
Labs:
Laboratory Results
05/21/24
07:37
WBC 5.4
Hgb 9.1 L
Hct 26.6 L
Plt Count 125 L
Sodium 139
Potassium 4.1
Chloride 110 H
Carbon Dioxide 25
BUN 21 H
Creatinine 0.8
Glucose 103 H
Calcium 8.7
Total Bilirubin 0.6
AST 38 H
ALT 25
Alkaline Phosphatase 54
Vital Signs:
Vital Signs
Temp Pulse Resp BP Pulse Ox
98.2 F 57 23 123/55 96
05/21/24 08:12 05/21/24 09:00 05/21/24 09:00 05/21/24 09:00 05/21/24 09:00
I&O
05/20/24 05/21/24 05/22/24
06:59 06:59 06:59
Intake Total 480 / 480 1730 / 1730
Balance 480 / 480 1730 / 1730
Physical Exam
-
General: No Apparent Distress
HEENT: Normocephalic and Atraumatic
Respiratory: Negative Wheezes
Cardiac: Regular Rhythm and S1/S2
GI: Soft
Neuro: AO x 3
Psych: Calm
Data Reviewed
-
Total Time Spent with Patient (in minutes): 51
Labs: Labs Reviewed by me
--- NOTE | 2024-05-21 09:42 | CM ---
CM notified this am by Dr. Mars that Sangeeta has an active GI bleed, going for urgent CT scan and then transferring to IMU. Will notify IMU CM of same.
Plan: CM will continue to follow for discharge needs.
PCP: Dr[facility]ra[facility]
--- NOTE | 2024-05-21 12:12 | PTCARENOTE ---
Pt left floor at 745 for her colonoscopy. vitals 132/56 bp, 61 hr, 98% ra, 18 resp, 98.2 temp. Pt went to [facility] after, tfr put in for IMU bed. Bed ready in 3350, called report to Nikki. Advised family of tfr. Pt was off the floor since 745.
[2024-05-21] MEDS: NSS 1000 IV (13:48)
--- NOTE | 2024-05-21 13:52 | PTCARENOTE ---
Received patient from by stretcher. Patient able to ambulate with standby assist to use bedside commode. Urinated. Patient reports no complaints. Mentioned dizziness earlier during bowel prep but states is no longer dizzy. VSS, NSB, RA. Blood
currently transfusing. To go to IR soon. Daughter at bedside. Both updated on plan. Will closely monitor.
[2024-05-21 13:56] LABS: Hemoglobin 8.9 g/dL (12.0-16.0); Mean Corpuscular Hgb 30.8 pg (27.0-31.0); Mean Corpuscular Volume 93.4 fL (81.0-99.0); Platelet Count 126 10^3/uL (130-400); Red Blood Cell Count 2.89 10^6/uL (4.20-5.40); Red Cell Dist. Width 13.9 % (11.5-14.5); White Blood Cell Count 5.3 10^3/uL (4.8-10.8)
--- NOTE | 2024-05-21 15:49 | W.PN.UPDATE ---
Update Note
Progress Note Update
- Negative mesenteric arteriogram
- Image quality suboptimal secondary to bowel gas and body habitus, requiring several subselective arteriograms of SMA branches. Ileocolic arteriogram negative.
- Pt stable and conversant during the procedure.
- Mynx closure device; R leg flat for 3 hours.
--- NOTE | 2024-05-21 16:17 | PTCARENOTE ---
Patient returned from IR by stretcher. Patient to remain flat until 184, patient understands and is cooperating. Call rankin placed in patients hand. RLE pulses intact, Right fem site CDI. Blood transfusion still running, IV fluids restarted. VSS,
RA, NSR. Will closely monitor.
[2024-05-21] MEDS: LOW STRENGTH ASPIRIN 81 MG PO (19:03)
[2024-05-21] MEDS: LIPITOR 40 MG PO (19:03)
[2024-05-21] MEDS: NORVASC 5 MG PO (19:03)
[2024-05-21 19:17] LABS: Hepatitis B Surface Antigen Negative (Negative)
[2024-05-21 19:35] LABS: Hepatitis B Core Ab, Total Negative (Negative); Hepatitis B Surface Antibody Negative; Hepatitis C Antibody Negative (Negative)
[2024-05-21] MEDS: PROTONIX IV 40 MG IV (19:39)
[2024-05-21] MEDS: NSS (PRESERVATIVE FREE) 10 ML IV (19:42)
[2024-05-22] VITALS (11 sets, daily range): BP systolic 102–131; BP diastolic 48–93; BMI 25.7
--- NOTE | 2024-05-22 01:50 | PTCARENOTE ---
Pt AAOx3, able to ambulate with assistx1 to BSC to void. Pt did have small, burgundy stool with clots on BSC, denies symptoms at this time. R fem site CDI, see documentation on worklist. IVF intact. Call rankin within reach
--- NOTE | 2024-05-22 02:47 | PTCARENOTE ---
Addendum entered by Sarah Prasad 05/22/24 04:11:
Mobitz type 2 noted on some monitor strips while pt sleeping. Strips added to chart per protocol
Original Note:
Pt HR angela down to 32 while sleeping. Promptly returned to 53
[2024-05-22] MEDS: SYNTHROID 75 MCG PO (06:07)
[2024-05-22 06:36] LABS: % Basophils 0.8 % (0-2); % Eosinophils 4.5 % (0-6); % Immature Granulocytes 0.3 % (0-0.5); % Lymphocytes 19.4 % (20.5-51.1); % Monocytes 7.5 % (1.7-9.3); % Neutrophils 67.5 % (42.2-75.2); Absolute Basophils 0.1 10^3/uL (0-0.2); Absolute Eosinophils 0.3 10^3/uL (0-0.7); Absolute Lymphocytes 1.2 10^3/uL (1.2-3.4); Absolute Monocytes 0.5 10^3/uL (0.1-0.6); Hematocrit 28.8 % (37.0-47.0); Hemoglobin 9.8 g/dL (12.0-16.0); Mean Corpuscular Volume 91.1 fL (81.0-99.0); Mean Platelet Volume 11.2 fL (7.4-10.4); Nucleated Red Blood Cells % 0 %; Platelet Count 109 10^3/uL (130-400); Red Blood Cell Count 3.16 10^6/uL (4.20-5.40); Red Cell Dist. Width 13.9 % (11.5-14.5)
[2024-05-22 06:50] LABS: ALT (SGPT) 24 U/L (0-35); AST (SGOT) 38 U/L (14-36); Albumin 3.4 g/dl (3.5-5.0); Alkaline Phosphatase 57 U/L (38-126); Blood Urea Nitrogen 17 mg/dl (7-17); Calcium 8.7 mg/dl (8.4-10.2); Carbon Dioxide 22 mmol/L (22-30); Chloride 110 mmol/L (98-107); Estimated Creatinine Clearance 53 ml/min; Glucose 96 mg/dl (70-99); Sodium 140 mmol/L (135-145); Total Bilirubin 1.3 mg/dl (0.2-1.3); Total Protein 5.9 g/dl (6.3-8.2); eGFR > 60.00
[2024-05-22 06:56] LABS: Potassium 4.1 mmol/L (3.5-5.1)
[2024-05-22] MEDS: NSS (PRESERVATIVE FREE) 10 ML IV ×2 (09:18→19:58)
[2024-05-22] MEDS: PROTONIX IV 40 MG IV ×2 (09:23→19:58)
--- NOTE | 2024-05-22 10:46 | W.PN.GI.CBS2 ---
Today's Communication / Plan
-
Bleeding source appears to be in distal small bowel, beyond reach of colonoscope
I discussed transfer to tertiary center for lower double balloon enteroscopy to localize source and potentially treat, particularly given need for anticoagulation and plavix down the road for management of her CAD and progressive .
She was reluctant but then agreeable to [facility] transfer
Will contact [facility] to make arrangement
Monitor Hgb. If active bleeding, repeat CTA or angio then
Assessment / Plan
-
Summary: 88yo presents with hx CAD on ASA, breast CA with prior lumpectomy and radiation, hypercholesterolemia, hypothyroidism, with recent cath in April with attempted IFR to mid RCA lesion without success due to wires. She was due for repeat
cath with plan for stenting and eventual TAVR. She now presents with 3 days of black tarry stools with some deep red stools. She reports 3 stools per day for last 5 day with normal pattern of 3 stools daily. On admission hbg 11.2 (last hbg 14.5
04/08) with BUN 32. On admission also some mild transaminase with AST 47 and alt 36. Pt report hx GI bleeding after her honeymoon years ago with ? reaction to sulfates vs other. She denies other GI bleeding in past. No hx EGD but prior
colonoscopy last about 10 years ago at [facility] with polyps.
05/21/24 ANGIOGRAM- SMA and subselective SMA argeriograms with no evidence for active bleeding
05/21/24 BLEEDING SCAN- Positive for active bleeding in R side of abdomen, either cecum or distal small bowel
05/21/24 COLON- Dark clots throughout colon, more copious in R colon. Red blood in TI. Small ascending colon polyp. Diverticulosis. Hemorrhoids
05/20/24 EGD- Hiatal hernia. No bleeding
Impression:
-Acute blood loss anemia- melena/red stool
-CAD due for repeat cath with stenting 05/20
- due for furture TAVR
-breast CA with hx radiation in past
-elevated transaminase hepatomegaly/fatty liver on imaging
Subjective
Subjective
Date of Service: May 22, 2024
Bleeding decreased from yesterday- had smear of blood with wiping. Denies abd pain
Objective
Data Reviewed
Laboratory Data:
Laboratory Results
05/22/24 06:05
05/22/24 06:05
Laboratory Results
PT 14.1 Sec (11.4-14.6) 05/19/24 12:28
INR 1.11 05/19/24 12:28
APTT 35.1 Sec (23.4-35.0) H 05/19/24 12:28
Total Bilirubin 1.3 mg/dl (0.2-1.3) 05/22/24 06:05
AST 38 U/L (14-36) H 05/22/24 06:05
ALT 24 U/L (0-35) 05/22/24 06:05
Alkaline Phosphatase 57 U/L (38-126) 05/22/24 06:05
Vital Signs and I&O:
Vital Signs
Temp Pulse Resp BP Pulse Ox
98.1 F 56 17 112/62 95
05/22/24 07:28 05/22/24 06:00 05/22/24 06:00 05/22/24 04:00 05/22/24 06:00
I&O
05/21/24 05/22/24 05/23/24
06:59 06:59 06:59
Intake Total 1730 / 1730 1120 / 1120
Balance 1730 / 1730 1120 / 1120
Physical Exam
Physical Exam
GI: Soft, Non Distended and Non Tender
--- NOTE | 2024-05-22 10:53 | W.PN.GENERIC ---
Assessment / Plan
-
88 yo female on baby ASA was admitted and found to have a GI bleed
She underwent IR arteriogram which was negative for active extravasation. She is feeling well today. She reports one further episode of dark maroon blood per rectum
Continue to trend H&H
If concern for rebleed recommend repeat CTA
I spent a 40 minutes in counseling and coordinating care with this patient and her daughter reviewing medical records, imaging, laboratory studies and findings of the arteriogram as well as potential for bleeding again.
Physician Progress Note
Subjective
This is an 88-year-old female who was admitted with watery black stool and generalized abdominal bloating. She is on baby aspirin. She was undergoing colonoscopy and was found to have a bleed. Nuc med scan was positive for bleed in the distal sm
bowel/cecum. She underwent IR arteriogram. No active extravasation noted during this study. She had another dark maroon bowel movement. She denies fever, chills, chest pain, palpitations, shortness of breath, dizziness, near syncope, cough,
nausea, vomiting, urinary symptoms. She has past medical history of aortic stenosis, multivessel CAD, HLD, breast cancer, cataracts, hypothyroidism, osteoarthritis of left knee
Past Medical History
aortic stenosis severe, multivessel CAD, HLD, breast cancer right breast 1992, left breast 2018 post with lumpectomy and radiation therapy, cataracts, hypothyroidism, osteoarthritis of left knee
Past Surgical History:
Bilateral knee replacements, Cardiac cath 04/08/2024, breast cancer right breast 1992, left breast 2019 post with lumpectomy and radiation therapy, Hysterectomy 1991
Social History
Tobacco: Non-smoker
Personal:
Living: With Family ()
Allergies
Allergy/AdvReac Type Severity Reaction Status Date / Time
metformin Allergy Diarrhea Verified 04/08/24 07:34
sulfite Allergy Diarrhea Verified 04/08/24 07:34
tamoxifen Allergy GI ISSUES Verified 04/08/24 07:34
Home Medications
levothyroxine 75 mcg tablet 75 mcg PO DAILY, calcium polycarbophil 625 mg tablet (Fiber (calcium polycarbophil)) 625 mg PO DAILY, glucosamine sulfate 500 mg tablet (Glucosamine) 1,000 mg PO BID, multivitamin 1 tab PO, omega 7-kms-ser-fish oil 1,000
mg (120 mg-180 mg) capsule (Fish Oil) 2 cap PO BID, aspirin 81 mg chewable tablet 81 mg PO, atorvastatin 40 mg tablet 40 mg PO, amlodipine 5 mg tablet 5 mg PO
Objective
Vital Signs
Temp Pulse Resp BP Pulse Ox
98.1 F 56 17 112/62 95
05/22/24 07:28 05/22/24 06:00 05/22/24 06:00 05/22/24 04:00 05/22/24 06:00
Lab Results
05/22/24 06:05
05/22/24 06:05
This is a WN/WD 88 yo female in NAD sitting up in a chair. Color is good. Skin is warm and dry. Neck is supple. Heart is regular. Lungs are CTA. Abdomen is soft and nontender with bowel sounds present. No LE edema. No groin
tenderness/hematoma.
--- NOTE | 2024-05-22 14:14 | W.PN.HOSP.TC ---
Today's Communication/Plan
-
continue to monitor bleeding/hb
ongoing efforts towards transfer to [facility] for DBE
Assessment / Plan
Assessment / Plan
Assessment:
melanotic GI bleed
Acute blood loss anemia with chronic baseline AOCD
- Hb 11.2 on admission, currently 9.8
- did receive 1 unit PRBC
- ok to continue ASA per GI/Cards given cardiac history
- PPI BID IV
- s/p EGD 05/20: 2cm hiatal hernia otherwise normal
- s/p Colonoscopy 05/21: Non-bleeding internal hemorrhoids were found during retroflexion. The hemorrhoids were medium-sized. Multiple diverticula were found in the sigmoid colon and descending colon. The terminal ileum contained red blood. Diffuse
dark clots throughout colon more copious in right colon. A small polyp was found in the ascending colon. The polyp was sessile. Polypectomy was not attempted due to active bleeding. Acute blood loss anemia with baseline anemia of chronic disease
- s/p IR arteriogram which was negative.
- GI following; they contacted [facility] on 05/22 for transfer for DBE procedure. [facility] refused transfer currently as not emergent.
Aortic stenosis
CAD
Essential HTN
- was due for elective stenting of the bifurcation LAD/diagonal stenosis on 05/20/2024
- Cardiology following
- continue Norvasc
hypothyroidism
- continue replacement
HLD
- statin
breast cancer s/p XRT
Chronic osteoarthritis of her left knee
History bilateral knee replacements
DVT ppx: SCDs
Code: Full
Anticipated Discharge: 24 - 48 hours
Subjective/Interval History
-
Date of Service: May 22, 2024
some maroon blood/clots passing
Hb 9.8
GI called [facility] who declined transfer as not emergent in nature
Objective Data
-
Labs:
Laboratory Results
05/22/24
06:05
WBC 6.0
Hgb 9.8 L
Hct 28.8 L
Plt Count 109 L
Sodium 140
Potassium 4.1
Chloride 110 H
Carbon Dioxide 22
BUN 17
Creatinine 0.7
Glucose 96
Calcium 8.7
Total Bilirubin 1.3
AST 38 H
ALT 24
Alkaline Phosphatase 57
Vital Signs:
Vital Signs
Temp Pulse Resp BP Pulse Ox
97.8 F 56 17 112/62 95
05/22/24 11:15 05/22/24 06:00 05/22/24 06:00 05/22/24 04:00 05/22/24 06:00
I&O
05/21/24 05/22/24 05/23/24
06:59 06:59 06:59
Intake Total 1730 / 1730 1120 / 1120
Output Total 350 / 350
Balance 1730 / 1730 1120 / 1120 -350 / -350
Physical Exam
-
General: No Apparent Distress
HEENT: Normocephalic and Atraumatic
Respiratory: Negative Wheezes
Cardiac: Regular Rhythm and S1/S2
GI: Soft
Genito-urinary: No Costovertebral Tender
Musculoskeletal: No Edema
Neuro: AO x 3
Hematologic / Lymphatic: No Lymphadenopathy
Psych: Calm
Data Reviewed
-
Total Time Spent with Patient (in minutes): 45
Labs: Labs Reviewed by me
--- NOTE | 2024-05-22 16:05 | W.PN.CARDCBS ---
Addendum entered and electronically signed by Rudy Montesinos MD 05/22/24 17:03:
I saw and examined the patient.
The SOIL ENGINEER or PA's note was reviewed and I agree with the note.
Comment: General: Well developed, well nourished in NAD.
Neck: Supple, no JVD, HJR, carotids +2 B/L, no bruits bilaterally.
Heart: Non displaced PMI, RRR, no murmurs, No S3, S4, no rubs.
Lungs: Scattered rhonchi
Extremities: No clubbing, cyanosis or edema bilaterally.
Neuro: Grossly nonfocal, awake, alert and oriented x3.
Stable cardiology status for any GI procedures. Plan for LAD and RCA stent prior to TAVR are is currently on hold given GI bleeding which needs to be resolved as patient needs to be able to tolerate aspirin and Plavix for stent or TAVR. Discussed
with primary service and GI. Considering transfer to [place].
Original Note:
Today's Communication / Plan
-
No plans for cath at this time given GIB.
Impression / Plan
-
Primary Oversize Load Pilot Escort: Dr. David
Assessment:
Presentation with dark stools, heme positive
GI bleed, suspected distal small bowel
severe , undergoing TAVR eval
LAD and RCA disease by cath 04/08/24
First-degree AV block
HTN
HLD
hypothyroidism
History of breast cancer status post lumpectomy and radiation therapy 2018
OA
ECHO 03/04/24: EF 70%, mild MR, severe aortic stenosis with peak/mean gradient 78/53 mmHg, YIFAN 0.7 cm�, trace AR, mild TR, PAP 23 to 25 mmHg
Plan:
-Patient presented with several days of dark stools.
-s/p EGD 05/20 without clear etiology. Colonoscopy 05/21 noted diffuse dark clots throughout the colon w/ red blood noted in terminal ileum.
-Underwent NM GI bleeding scan which was positive for active bleeding either within the cecum or distal small bowel.
-Attempted transfer to [facility] for DBE, however [facility] did not accept at this time. Continue to monitor.
-hgb 9.8 05/22. s/p 1 unit PRBCs 05/21.
-Noted to be bradycardic at times overnight with some pauses, occasional Wenckebach. No high grade AV block noted.
-Not on av lesia blockers, continue to avoid. She reports she does snore at times, consider for OP sleep study
-Eventually will need to assess if she would be able to tolerate DAPT. For now holding off on cardiac cath/PCI and TAVR.
-Can reassess once stable from GI/bleeding standpoint.
-BP stable on current medications.
Progress Note - Oversize Load Pilot Escort
Subjective
Date of Service: May 22, 2024
Objective
Labs:
05/22/24 06:05
05/22/24 06:05
Labs
Hgb 9.8 g/dL (12.0-16.0) L 05/22/24 06:05
Hct 28.8 % (37.0-47.0) L 05/22/24 06:05
Plt Count 109 10^3/uL (130-400) L 05/22/24 06:05
PT 14.1 Sec (11.4-14.6) 05/19/24 12:28
INR 1.11 05/19/24 12:28
APTT 35.1 Sec (23.4-35.0) H 05/19/24 12:28
Sodium 140 mmol/L (135-145) 05/22/24 06:05
Potassium 4.1 mmol/L (3.5-5.1) 05/22/24 06:05
BUN 17 mg/dl (7-17) 05/22/24 06:05
Creatinine 0.7 mg/dL (0.6-1.0) 05/22/24 06:05
Glucose 96 mg/dl (70-99) 05/22/24 06:05
Vital Signs and I&O:
Vital Signs
Temp Pulse Resp BP Pulse Ox
97.8 F 59 16 115/65 95
05/22/24 11:15 05/22/24 14:00 05/22/24 14:00 05/22/24 14:00 05/22/24 09:32
Vital Signs
Temp Pulse Resp BP Pulse Ox
97.8 F 59 16 115/65 95
05/22/24 11:15 05/22/24 14:00 05/22/24 14:00 05/22/24 14:00 05/22/24 09:32
Intake & Output
05/20/24 05/21/24 05/22/24 05/23/24
06:59 06:59 06:59 06:59
Intake Total 480 / 480 1730 / 1730 1120 / 1120
Output Total 350 / 350
Balance 480 / 480 1730 / 1730 1120 / 1120 -350 / -350
--- NOTE | 2024-05-22 16:55 | CM ---
Patient with Dx GI bleed. Clear liquids. PPI gtt. PT & OT; no needs. Nursing; A/O, ambulating with assistance.
CM continuing to follow.
Plan home.
--- NOTE | 2024-05-22 18:00 | PTCARENOTE ---
OOB all day, ambulates to bathroom. Pale, denies dizziness /weakness/ pain. Had 6 stools burgandy liq with large dark clot. Tolerating clear liquids. Standing BP 115/88.
[2024-05-22] MEDS: LOW STRENGTH ASPIRIN 81 MG PO (18:39)
[2024-05-22] MEDS: NORVASC 5 MG PO (18:39)
[2024-05-22] MEDS: LIPITOR 40 MG PO (18:39)
--- NOTE | 2024-05-22 21:42 | PTCARENOTE ---
Pt received at 19:00. Assessment as documented. Pt ambulated to bathroom, steady gait. No BM at this time. Daughter at bedside.
[2024-05-23] VITALS (8 sets, daily range): BP systolic 99–142; BP diastolic 49–65; BMI 26.2
[2024-05-23] MEDS: SYNTHROID 75 MCG PO (06:17)
[2024-05-23 06:39] LABS: Hematocrit 23.2 % (37.0-47.0); Mean Corp Hgb Conc. 34.5 g/dL (33.0-37.0); Mean Corpuscular Hgb 31.7 pg (27.0-31.0); Mean Corpuscular Volume 92.1 fL (81.0-99.0); Red Blood Cell Count 2.52 10^6/uL (4.20-5.40); Red Cell Dist. Width 13.9 % (11.5-14.5); White Blood Cell Count 4.1 10^3/uL (4.8-10.8)
--- NOTE | 2024-05-23 06:53 | PTCARENOTE ---
OOB all day, ambulates to bathroom. Pale, denies dizziness /weakness/ pain. Had 6 stools burgandy liq with large dark clot. Tolerating clear liquids. Standing BP 115/88.
[2024-05-23 07:01] LABS: Blood Urea Nitrogen 18 mg/dl (7-17); Calcium 8.4 mg/dl (8.4-10.2); Carbon Dioxide 27 mmol/L (22-30); Chloride 109 mmol/L (98-107); Estimated Creatinine Clearance 41 ml/min; Glucose 100 mg/dl (70-99); Sodium 138 mmol/L (135-145); eGFR > 60.00
[2024-05-23 07:54] LABS: Mean Platelet Volume 11.2 fL (7.4-10.4); Platelet Count 89 10^3/uL (130-400)
[2024-05-23] MEDS: NSS (PRESERVATIVE FREE) 10 ML IV ×2 (08:12→20:44)
[2024-05-23] MEDS: PROTONIX IV 40 MG IV ×2 (08:12→20:44)
--- NOTE | 2024-05-23 09:26 | W.PN.CARDCBS ---
Addendum entered and electronically signed by Rudy Montesinos MD 05/23/24 10:22:
I saw and examined the patient.
The COLLAR SEWER or PA's note was reviewed and I agree with the note.
Comment: General: Well developed, well nourished in NAD.
Neck: Supple, no JVD, HJR, carotids +2 B/L, no bruits bilaterally.
Heart: Non displaced PMI, RRR, 2/6 basal systolic murmur, No S3, S4, no rubs.
Lungs: Clear to auscultation bilaterally, no wheeze, rhonchi, rubs bilaterally,
normal expiratory phase.
Extremities: No clubbing, cyanosis or edema bilaterally.
Neuro: Grossly nonfocal, awake, alert and oriented x3.
Stable cardiology status for GI procedures and transfer to [place]. Await workup of GI bleeding before proceeding with stenting given the risk of stent thrombosis if Plavix needs to be held with recurrent bleeding. Discussed with patient and daughter
in detail.
Original Note:
Today's Communication / Plan
-
Repeat H/H
No plans for cath/PCI at this time
Impression / Plan
-
Primary Industrial Fabric Cutter: Dr. David
Assessment:
Presentation with dark stools, heme positive
GI bleed, suspected distal small bowel
severe , undergoing TAVR eval
LAD and RCA disease by cath 04/08/24
First-degree AV block
HTN
HLD
hypothyroidism
History of breast cancer status post lumpectomy and radiation therapy 2018
OA
ECHO 03/04/24: EF 70%, mild MR, severe aortic stenosis with peak/mean gradient 78/53 mmHg, YIFAN 0.7 cm�, trace AR, mild TR, PAP 23 to 25 mmHg
Plan:
-Patient presented with several days of dark stools.
-s/p EGD 05/20 without clear etiology. Colonoscopy 05/21 noted diffuse dark clots throughout the colon w/ red blood noted in terminal ileum.
-Underwent NM GI bleeding scan which was positive for active bleeding either within the cecum or distal small bowel.
-Considering transfer to [place] for further workup and possible DBE.
-hgb down to 8.0 in AM 05/23, down from 9.8 on 05/22. s/p 1 unit PRBCs 05/21. Patient reports AM labs were drawn from IV and may not be accurate. Rechecking H/H.
-Noted to be bradycardic at times overnight with some pauses, occasional Wenckebach. No high grade AV block noted.
-Not on av lesia blockers, continue to avoid. She reports she does snore at times, consider for OP sleep study
-Eventually will need to assess if she would be able to tolerate DAPT. For now holding off on cardiac cath/PCI and TAVR.
-Can reassess once stable from GI/bleeding standpoint.
-BP stable on current medications.
Progress Note - Industrial Fabric Cutter
Subjective
Date of Service: May 23, 2024
Feeling well. No complaints.
Objective
Labs:
05/23/24 06:19
Labs
Hgb 8.0 g/dL (12.0-16.0) L 05/23/24 06:19
Hct 23.2 % (37.0-47.0) L 05/23/24 06:19
Plt Count 89 10^3/uL (130-400) L 05/23/24 06:19
PT 14.1 Sec (11.4-14.6) 05/19/24 12:28
INR 1.11 05/19/24 12:28
APTT 35.1 Sec (23.4-35.0) H 05/19/24 12:28
Sodium 138 mmol/L (135-145) 05/23/24 06:19
Potassium 4.0 mmol/L (3.5-5.1) 05/23/24 06:19
BUN 18 mg/dl (7-17) H 05/23/24 06:19
Creatinine 0.9 mg/dL (0.6-1.0) 05/23/24 06:19
Glucose 100 mg/dl (70-99) H 05/23/24 06:19
Vital Signs and I&O:
Vital Signs
Temp Pulse Resp BP Pulse Ox
98.1 F 74 26 132/57 95
05/23/24 08:00 05/23/24 07:00 05/23/24 07:00 05/23/24 06:20 05/22/24 09:32
Vital Signs
Temp Pulse Resp BP Pulse Ox
98.1 F 74 26 132/57 95
05/23/24 08:00 05/23/24 07:00 05/23/24 07:00 05/23/24 06:20 05/22/24 09:32
Intake & Output
05/21/24 05/22/24 05/23/24 05/24/24
06:59 06:59 06:59 06:59
Intake Total 1730 / 1730 1120 / 1120 2700 / 2700
Output Total 1450 / 1450 350 / 350
Balance 1730 / 1730 1120 / 1120 1250 / 1250 -350 / -350
Physical Exam
Physical Exam
GEN: No distress, awake, alert, oriented x3
HEENT: supple, anicteric, mmm, eomi
LUNGS: CTA B/L, no wheezes/rales
CV: Reg, S1/S2, 3/6 syst LSB
EXT: No cyanosis, clubbing, edema
NEURO: Gross non-focal
SKIN: Warm, pink, dry. No rash
--- NOTE | 2024-05-23 09:26 | W.PN.GI.CBS2 ---
Today's Communication / Plan
-
Spoke with [facility] yesterday- declined transfer due to computer issues and limited bed availability
Check f/u Hgb and monitor BMs
Will try [facility] again tomorrow given ongoing bleeding for double balloon lower enteroscopy
Assessment / Plan
-
Summary: 88yo presents with hx CAD on ASA, breast CA with prior lumpectomy and radiation, hypercholesterolemia, hypothyroidism, with recent cath in April with attempted IFR to mid RCA lesion without success due to wires. She was due for repeat
cath with plan for stenting and eventual TAVR. She now presents with 3 days of black tarry stools with some deep red stools. She reports 3 stools per day for last 5 day with normal pattern of 3 stools daily. On admission hbg 11.2 (last hbg 14.5
6/) with BUN 32. On admission also some mild transaminase with AST 47 and alt 36. Pt report hx GI bleeding after her honeymoon years ago with ? reaction to sulfates vs other. She denies other GI bleeding in past. No hx EGD but prior
colonoscopy last about 10 years ago at [facility] with polyps.
05/21/24 PRBC 1 unit
05/21/24 ANGIOGRAM- SMA and subselective SMA argeriograms with no evidence for active bleeding
05/21/24 BLEEDING SCAN- Positive for active bleeding in R side of abdomen, either cecum or distal small bowel
05/21/24 COLON- Dark clots throughout colon, more copious in R colon. Red blood in TI. Small ascending colon polyp. Diverticulosis. Hemorrhoids
05/20/24 EGD- Hiatal hernia. No bleeding
Impression:
-Acute blood loss anemia- melena/red stool. Positive bleeding scan in area of cecum, distal SB
-CAD due for repeat cath with stenting 05/20
- due for furture TAVR
-breast CA with hx radiation in past
-elevated transaminase hepatomegaly/fatty liver on imaging
Subjective
Subjective
Date of Service: May 23, 2024
Had yolanda this am. Denies abd pain.
Objective
Data Reviewed
Laboratory Data:
Laboratory Results
05/23/24 06:19
Laboratory Results
PT 14.1 Sec (11.4-14.6) 05/19/24 12:28
INR 1.11 05/19/24 12:28
APTT 35.1 Sec (23.4-35.0) H 05/19/24 12:28
Total Bilirubin 1.3 mg/dl (0.2-1.3) 05/22/24 06:05
AST 38 U/L (14-36) H 05/22/24 06:05
ALT 24 U/L (0-35) 05/22/24 06:05
Alkaline Phosphatase 57 U/L (38-126) 05/22/24 06:05
Vital Signs and I&O:
Vital Signs
Temp Pulse Resp BP Pulse Ox
98.1 F 74 26 132/57 95
05/23/24 08:00 05/23/24 07:00 05/23/24 07:00 05/23/24 06:20 05/22/24 09:32
I&O
05/22/24 05/23/24 05/24/24
06:59 06:59 06:59
Intake Total 1120 / 1120 2700 / 2700
Output Total 1450 / 1450 350 / 350
Balance 1120 / 1120 1250 / 1250 -350 / -350
Physical Exam
Physical Exam
GI: Soft, Non Distended and Non Tender
[2024-05-23 10:36] LABS: Hematocrit 24.4 % (37.0-47.0); Hemoglobin 8.5 g/dL (12.0-16.0)
--- NOTE | 2024-05-23 13:24 | W.PN.HOSP.TC ---
Today's Communication/Plan
-
monitor Hb
await GI/[facility] discussion about transfer
Assessment / Plan
Assessment / Plan
Assessment:
melanotic GI bleed
Acute blood loss anemia with chronic baseline AOCD
- Hb 11.2 on admission, currently 8.5
- did receive 1 unit PRBC this admission
- ok to continue ASA per GI/Cards given cardiac history
- PPI BID IV
- s/p EGD 05/20: 2cm hiatal hernia otherwise normal
- s/p Colonoscopy 05/21: Non-bleeding internal hemorrhoids were found during retroflexion. The hemorrhoids were medium-sized. Multiple diverticula were found in the sigmoid colon and descending colon. The terminal ileum contained red blood. Diffuse
dark clots throughout colon more copious in right colon. A small polyp was found in the ascending colon. The polyp was sessile. Polypectomy was not attempted due to active bleeding. Acute blood loss anemia with baseline anemia of chronic disease
- s/p IR arteriogram which was negative.
- GI following; they contacted [facility] on 05/22 for transfer for DBE procedure. [facility] refused transfer currently due to computer issues and non-emergent nature. GI will reach out again Saturday.
Aortic stenosis
CAD
Essential HTN
- was due for elective stenting of the bifurcation LAD/diagonal stenosis on 05/20/2024
- Cardiology following
- continue Norvasc
hypothyroidism
- continue replacement
HLD
- statin
breast cancer s/p XRT
Chronic osteoarthritis of her left knee
History bilateral knee replacements
DVT ppx: SCDs
Code: Full
Anticipated Discharge: 24 - 48 hours
Subjective/Interval History
-
Date of Service: May 23, 2024
burgundy BM this morning
no other complaints
Hb 8.5 most recently
Objective Data
-
Labs:
Laboratory Results
05/23/24 05/23/24
06:19 10:03
WBC 4.1 L
Hgb 8.0 L 8.5 L
Hct 23.2 L 24.4 L
Plt Count 89 L
Sodium 138
Potassium 4.0
Chloride 109 H
Carbon Dioxide 27
BUN 18 H
Creatinine 0.9
Glucose 100 H
Calcium 8.4
Vital Signs:
Vital Signs
Temp Pulse Resp BP Pulse Ox
97.9 F 72 19 127/59 95
05/23/24 11:20 05/23/24 10:00 05/23/24 10:00 05/23/24 08:17 05/22/24 09:32
I&O
05/22/24 05/23/24 05/24/24
06:59 06:59 06:59
Intake Total 1120 / 1120 2700 / 2700 480 / 480
Output Total 1450 / 1450 750 / 750
Balance 1120 / 1120 1250 / 1250 -270 / -270
Physical Exam
-
General: No Apparent Distress
HEENT: Normocephalic and Atraumatic
Respiratory: Negative Wheezes
Cardiac: Murmur
Genito-urinary: No Costovertebral Tender
Musculoskeletal: No Edema
Neuro: AO x 3
Hematologic / Lymphatic: No Lymphadenopathy
Psych: Calm
Data Reviewed
-
Total Time Spent with Patient (in minutes): 45
Labs: Labs Reviewed by me
[2024-05-23] MEDS: FERRLECIT 110 MG IV (14:32)
[2024-05-23] MEDS: LIPITOR 40 MG PO (18:29)
[2024-05-23] MEDS: LOW STRENGTH ASPIRIN 81 MG PO (18:29)
[2024-05-23] MEDS: NORVASC 5 MG PO (18:29)
--- NOTE | 2024-05-23 19:23 | PTCARENOTE ---
3 small liq burgandy stools with clots noted today. Tolerating clear liq. diet. SR 1st degree on monitor- Tegan T2 when asleep. OOB most of the day - ambulated in hallway and sitting with family in waiting room currently.
[2024-05-24] VITALS (23 sets, daily range): BP systolic 70–168; BP diastolic 43–68; BMI 25.3
[2024-05-24] MEDS: SYNTHROID 75 MCG PO (06:11)
[2024-05-24 06:34] LABS: Hematocrit 22.8 % (37.0-47.0); Hemoglobin 7.8 g/dL (12.0-16.0)
[2024-05-24] MEDS: NSS (PRESERVATIVE FREE) 10 ML IV ×2 (08:34→20:30)
[2024-05-24] MEDS: PROTONIX IV 40 MG IV ×2 (08:34→20:30)
--- NOTE | 2024-05-24 10:54 | W.PN.GI.CBS2 ---
Today's Communication / Plan
-
Will try [facility] transfer again today for lower double balloon enteroscopy. If unavailable, pt is agreeable to [facility] transfer
Hgb relatively stable
Assessment / Plan
-
Summary: 88yo presents with hx CAD on ASA, breast CA with prior lumpectomy and radiation, hypercholesterolemia, hypothyroidism, with recent cath in April with attempted IFR to mid RCA lesion without success due to wires. She was due for repeat
cath with plan for stenting and eventual TAVR. She now presents with 3 days of black tarry stools with some deep red stools. She reports 3 stools per day for last 5 day with normal pattern of 3 stools daily. On admission hbg 11.2 (last hbg 14.5
04/08) with BUN 32. On admission also some mild transaminase with AST 47 and alt 36. Pt report hx GI bleeding after her honeymoon years ago with ? reaction to sulfates vs other. She denies other GI bleeding in past. No hx EGD but prior
colonoscopy last about 10 years ago at [facility] with polyps.
05/21/24 PRBC 1 unit
05/21/24 ANGIOGRAM- SMA and subselective SMA argeriograms with no evidence for active bleeding
05/21/24 BLEEDING SCAN- Positive for active bleeding in R side of abdomen, either cecum or distal small bowel
05/21/24 COLON- Dark clots throughout colon, more copious in R colon. Red blood in TI. Small ascending colon polyp. Diverticulosis. Hemorrhoids
05/20/24 EGD- Hiatal hernia. No bleeding
Impression:
-Acute blood loss anemia- melena/red stool. Positive bleeding scan in area of cecum, distal SB
-CAD due for repeat cath with stenting 05/20
- due for furture TAVR
-breast CA with hx radiation in past
-elevated transaminase hepatomegaly/fatty liver on imaging
Subjective
Subjective
Date of Service: May 24, 2024
No BMs overnight, but blood with wiping
Objective
Data Reviewed
Laboratory Data:
Laboratory Results
05/24/24 06:10
05/23/24 06:19
Laboratory Results
PT 14.1 Sec (11.4-14.6) 05/19/24 12:28
INR 1.11 05/19/24 12:28
APTT 35.1 Sec (23.4-35.0) H 05/19/24 12:28
Total Bilirubin 1.3 mg/dl (0.2-1.3) 05/22/24 06:05
AST 38 U/L (14-36) H 05/22/24 06:05
ALT 24 U/L (0-35) 05/22/24 06:05
Alkaline Phosphatase 57 U/L (38-126) 05/22/24 06:05
Vital Signs and I&O:
Vital Signs
Temp Pulse Resp BP Pulse Ox
97.9 F 79 24 115/53 96
05/24/24 07:10 05/24/24 09:00 05/24/24 09:00 05/24/24 08:00 05/24/24 03:31
I&O
05/23/24 05/24/24 05/25/24
06:59 06:59 06:59
Intake Total 2700 / 2700 3320 / 3320 780 / 780
Output Total 1450 / 1450 2900 / 2900
Balance 1250 / 1250 420 / 420 780 / 780
Physical Exam
Physical Exam
GI: Soft, Non Distended and Non Tender
--- NOTE | 2024-05-24 11:52 | W.PN.HOSP.TC ---
Today's Communication/Plan
-
1 unit PRBC and await [facility] transfer acceptance. [facility] is backup option. GI coordinating.
Assessment / Plan
Assessment / Plan
Assessment:
melanotic GI bleed
Acute blood loss anemia with chronic baseline AOCD
- Hb 11.2 on admission, currently 7.8
- order 1 unit PRBC today, previously had 1 unit earlier this admission
- ok to continue ASA per GI/Cards given cardiac history
- PPI BID IV
- s/p EGD 05/20: 2cm hiatal hernia otherwise normal
- s/p Colonoscopy 05/21: Non-bleeding internal hemorrhoids were found during retroflexion. The hemorrhoids were medium-sized. Multiple diverticula were found in the sigmoid colon and descending colon. The terminal ileum contained red blood. Diffuse
dark clots throughout colon more copious in right colon. A small polyp was found in the ascending colon. The polyp was sessile. Polypectomy was not attempted due to active bleeding. Acute blood loss anemia with baseline anemia of chronic disease
- s/p IR arteriogram which was negative.
- GI following; they contacted [facility] on 05/22 for transfer for DBE procedure. [facility] refused transfer currently due to computer issues and non-emergent nature. GI spoke to [facility] again 05/24, pending transfer acceptance
Aortic stenosis
CAD
Essential HTN
- was due for elective stenting of the bifurcation LAD/diagonal stenosis on 05/20/2024
- Cardiology following
- continue Norvasc
hypothyroidism
- continue replacement
HLD
- statin
breast cancer s/p XRT
Chronic osteoarthritis of her left knee
History bilateral knee replacements
DVT ppx: SCDs
Code: Full
Anticipated Discharge: 24 - 48 hours
Subjective/Interval History
-
Date of Service: May 24, 2024
passing clots, blood on wipes
Hb 7.8 today, 1 unit ordered
Objective Data
-
Labs:
Laboratory Results
05/24/24
06:10
Hgb 7.8 L
Hct 22.8 L
Vital Signs:
Vital Signs
Temp Pulse Resp BP Pulse Ox
97.9 F 83 25 113/52 95
05/24/24 11:15 05/24/24 11:15 05/24/24 11:15 05/24/24 11:15 05/24/24 11:15
I&O
05/23/24 05/24/24 05/25/24
06:59 06:59 06:59
Intake Total 2700 / 2700 3320 / 3320 780 / 780
Output Total 1450 / 1450 2900 / 2900
Balance 1250 / 1250 420 / 420 780 / 780
Physical Exam
-
General: No Apparent Distress
HEENT: Normocephalic and Atraumatic
Respiratory: Negative Wheezes or Rales
Cardiac: Regular Rhythm, S1/S2 and Murmur
GI: Soft
Genito-urinary: No Costovertebral Tender
Neuro: AO x 3
Psych: Calm
Data Reviewed
-
Total Time Spent with Patient (in minutes): 42
Labs: Labs Reviewed by me
[2024-05-24] MEDS: FERRLECIT 110 MG IV (15:05)
--- NOTE | 2024-05-24 15:22 | PTCARENOTE ---
Addendum entered by Chandan Espana RN 05/24/24 16:11:
Report/updates given to [facility],
Original Note:
Patient AAOx3. Awaiting transfer to [place], likely tomorrow. Received 1u PRBCs today. Has had 2 large bloody with clots BMs today so far. VSS. NSB/NSR on monitor. RA. Daughter at bedside. Will continue to closely monitor.
[2024-05-24] MEDS: LOW STRENGTH ASPIRIN 81 MG PO (18:27)
[2024-05-24] MEDS: NORVASC 5 MG PO (18:27)
[2024-05-24] MEDS: LIPITOR 40 MG PO (18:29)
--- NOTE | 2024-05-24 23:08 | PTCARENOTE ---
Received call from Mable NAIR @ [facility] transfer [place]. Update provided at their request. Center unable to provide time for transfer and informed me that they are still waiting for insurance approval and that this will be addressed tomorrow.
[2024-05-25] VITALS (12 sets, daily range): BP systolic 80–142; BP diastolic 41–69; BMI 25.7
[2024-05-25 05:12] LABS: Hematocrit 23.3 % (37.0-47.0)
[2024-05-25] MEDS: SYNTHROID 75 MCG PO (05:16)
[2024-05-25 05:35] LABS: Blood Urea Nitrogen 17 mg/dl (7-17); Calcium 8.6 mg/dl (8.4-10.2); Carbon Dioxide 26 mmol/L (22-30); Chloride 110 mmol/L (98-107); Estimated Creatinine Clearance 46 ml/min; Glucose 107 mg/dl (70-99); Sodium 139 mmol/L (135-145); eGFR > 60.00
[2024-05-25] MEDS: NSS (PRESERVATIVE FREE) 10 ML IV ×2 (08:22→20:09)
[2024-05-25] MEDS: PROTONIX IV 40 MG IV ×2 (08:23→20:09)
--- NOTE | 2024-05-25 10:03 | W.PN.GI.CBS2 ---
Today's Communication / Plan
-
Hgb up to 8.0 after 1 unit PRBC yesterday for Hgb 7.8
Has been accepted at [facility] for transfer to do lower double balloon enteroscopy to identify bleeding site in distal ileum
Assessment / Plan
-
Summary: 88yo presents with hx CAD on ASA, breast CA with prior lumpectomy and radiation, hypercholesterolemia, hypothyroidism, with recent cath in April with attempted IFR to mid RCA lesion without success due to wires. She was due for repeat
cath with plan for stenting and eventual TAVR. She now presents with 3 days of black tarry stools with some deep red stools. She reports 3 stools per day for last 5 day with normal pattern of 3 stools daily. On admission hbg 11.2 (last hbg 14.5
6/) with BUN 32. On admission also some mild transaminase with AST 47 and alt 36. Pt report hx GI bleeding after her honeymoon years ago with ? reaction to sulfates vs other. She denies other GI bleeding in past. No hx EGD but prior
colonoscopy last about 10 years ago at [facility] with polyps.
05/24/24 PRBC 1 unit
05/21/24 PRBC 1 unit
05/21/24 ANGIOGRAM- SMA and subselective SMA arteriograms with no evidence for active bleeding
05/21/24 BLEEDING SCAN- Positive for active bleeding in R side of abdomen, either cecum or distal small bowel
05/21/24 COLON- Dark clots throughout colon, more copious in R colon. Red blood in TI. Small ascending colon polyp. Diverticulosis. Hemorrhoids
05/20/24 EGD- Hiatal hernia. No bleeding
Impression:
-Acute blood loss anemia- melena/red stool. Positive bleeding scan in area of cecum, distal SB
-CAD due for repeat cath with stenting 05/20
- due for furture TAVR
-breast CA with hx radiation in past
-elevated transaminase hepatomegaly/fatty liver on imaging
Subjective
Subjective
Date of Service: May 25, 2024
passed blood clots this am
Objective
Data Reviewed
Laboratory Data:
Laboratory Results
05/25/24 04:46
05/25/24 04:46
Laboratory Results
PT 14.1 Sec (11.4-14.6) 05/19/24 12:28
INR 1.11 05/19/24 12:28
APTT 35.1 Sec (23.4-35.0) H 05/19/24 12:28
Total Bilirubin 1.3 mg/dl (0.2-1.3) 05/22/24 06:05
AST 38 U/L (14-36) H 05/22/24 06:05
ALT 24 U/L (0-35) 05/22/24 06:05
Alkaline Phosphatase 57 U/L (38-126) 05/22/24 06:05
Vital Signs and I&O:
Vital Signs
Temp Pulse Resp BP Pulse Ox
98.2 F 65 17 117/66 97
05/25/24 07:23 05/25/24 09:00 05/25/24 09:00 05/25/24 08:36 05/24/24 22:25
I&O
05/24/24 05/25/24 05/26/24
06:59 06:59 06:59
Intake Total 3320 / 3320 1510 / 1510
Output Total 2900 / 2900 1500 / 1500
Balance 420 / 420
Physical Exam
Physical Exam
GI: Soft, Non Distended and Non Tender
--- NOTE | 2024-05-25 11:19 | W.PN.CARDCBS ---
Today's Communication / Plan
-
Stable cardiology status for transfer to [place]
Outpatient stenting of RCA and LAD will be arranged after she has been treated for GI bleeding
Impression / Plan
-
Primary Welding Production Supervisor: Dr. David
Assessment:
Presentation with dark stools, heme positive
GI bleed, suspected distal small bowel
severe , undergoing TAVR eval
LAD and RCA disease by cath 04/08/24
First-degree AV block
HTN
HLD
hypothyroidism
History of breast cancer status post lumpectomy and radiation therapy 2018
OA
ECHO 03/04/24: EF 70%, mild MR, severe aortic stenosis with peak/mean gradient 78/53 mmHg, YIFAN 0.7 cm�, trace AR, mild TR, PAP 23 to 25 mmHg
Plan:
She remains stable from cardiology viewpoint
Awaiting transfer to [place] for further workup of GI bleeding
Stable cardiology status for GI procedure without further testing
LAD and RCA stenting will be deferred to outpatient when she is completely recovered from GI bleeding as do not want to risk stent thrombosis if Plavix would have to be interrupted due to GI bleeding
Discussed with GI as well as daughter at bedside
Progress Note - Welding Production Supervisor
Subjective
Date of Service: May 25, 2024
No complaints
Objective
Labs:
05/25/24 04:46
05/25/24 04:46
Labs
Hgb 8.0 g/dL (12.0-16.0) L 05/25/24 04:46
Hct 23.3 % (37.0-47.0) L 05/25/24 04:46
Plt Count 89 10^3/uL (130-400) L 05/23/24 06:19
PT 14.1 Sec (11.4-14.6) 05/19/24 12:28
INR 1.11 05/19/24 12:28
APTT 35.1 Sec (23.4-35.0) H 05/19/24 12:28
Sodium 139 mmol/L (135-145) 05/25/24 04:46
Potassium 4.0 mmol/L (3.5-5.1) 05/25/24 04:46
BUN 17 mg/dl (7-17) 05/25/24 04:46
Creatinine 0.8 mg/dL (0.6-1.0) 05/25/24 04:46
Glucose 107 mg/dl (70-99) H 05/25/24 04:46
Vital Signs and I&O:
Vital Signs
Temp Pulse Resp BP Pulse Ox
98.4 F 65 17 117/66 97
05/25/24 11:11 05/25/24 09:00 05/25/24 09:00 05/25/24 08:36 05/24/24 22:25
Vital Signs
Temp Pulse Resp BP Pulse Ox
98.4 F 65 17 117/66 97
05/25/24 11:11 05/25/24 09:00 05/25/24 09:00 05/25/24 08:36 05/24/24 22:25
Intake & Output
05/23/24 05/24/24 05/25/24 05/26/24
06:59 06:59 06:59 06:59
Intake Total 2700 / 2700 3320 / 3320 1510 / 1510
Output Total 1450 / 1450 2900 / 2900 1500 / 1500
Balance 1250 / 1250 420 / 420 10 / 10
Physical Exam
Physical Exam
General: Well developed, well nourished in NAD.
Neck: Supple, no JVD, HJR, carotids +2 B/L, no bruits bilaterally.
Heart: Non displaced PMI, RRR, 2/6 basal systolic murmur, No S3, S4, no rubs.
Lungs: Clear to auscultation bilaterally, no wheeze, rhonchi, rubs bilaterally,
normal expiratory phase.
Extremities: No clubbing, cyanosis or edema bilaterally.
Neuro: Grossly nonfocal, awake, alert and oriented x3.
--- NOTE | 2024-05-25 11:47 | CM ---
Patient with Dx GI bleed, Acute blood loss anemia. Receiving IV Ferric Na Gluconate. PT/OT on hold.
Plan transfer to [facility], accepting MD King Eduardo, transfer listed as emergent for double balloon endoscopy.
Spoke with Gabby Pierson, Precert Coordinator, [facility]; she conveyed accepting MD King Eduardo, transfer listed as emergent for double balloon endoscopy. Faxed her back completed BuyBack Agreement with signatures of Dr Sung, Halima Amado
Jose, and patient. Received Fax confirmation. She will let the transfer center know.
Met with patient and daughter Maria A; both agree to transfer to [facility]. Explained BuyBack Agreement to patient/daughter and patient agrees to sign. She is anxious to get to [facility] for the procedure.
Ambulance form completed by Dr Mars requests cardiac monitoring - will need ALS transport.
Plan transfer to [facility] by ALS ambulance.
--- NOTE | 2024-05-25 14:48 | W.PN.HOSP.TC ---
Today's Communication/Plan
-
Monitor hemoglobin.
Pending transfer to [facility] for advanced procedure/DBE.
Assessment / Plan
Assessment / Plan
Assessment:
melanotic GI bleed
Acute blood loss anemia with chronic baseline AOCD
- Hb 11.2 on admission trended down to 7.8 at the lowest.
-Status post transfusion with hemoglobin stabilized at 8
- ok to continue ASA per GI/Cards given cardiac history
- PPI BID IV
-Nuclear scan 05/21 positive for bleeding at the right side of the abdomen, possibly cecal
- s/p EGD 05/20: 2cm hiatal hernia otherwise normal
- s/p Colonoscopy 05/21: Non-bleeding internal hemorrhoids were found during retroflexion. The hemorrhoids were medium-sized. Multiple diverticula were found in the sigmoid colon and descending colon. The terminal ileum contained red blood. Diffuse
dark clots throughout colon more copious in right colon. A small polyp was found in the ascending colon. The polyp was sessile. Polypectomy was not attempted due to active bleeding. Acute blood loss anemia with baseline anemia of chronic disease
- s/p IR arteriogram which was negative.
- GI following; pending transfer for DBE procedure.
Aortic stenosis
CAD
Essential HTN
- was due for elective stenting of the bifurcation LAD/diagonal stenosis on 05/20/2024
- Cardiology following
- continue Norvasc
hypothyroidism
- continue replacement
HLD
- statin
breast cancer s/p XRT
Chronic osteoarthritis of her left knee
History bilateral knee replacements
DVT ppx: SCDs
Code: Full
Anticipated Discharge: 24 - 48 hours
Subjective/Interval History
-
Date of Service: May 25, 2024
Objective Data
-
Labs:
Laboratory Results
05/25/24
04:46
Hgb 8.0 L
Hct 23.3 L
Sodium 139
Potassium 4.0
Chloride 110 H
Carbon Dioxide 26
BUN 17
Creatinine 0.8
Glucose 107 H
Calcium 8.6
Vital Signs:
Vital Signs
Temp Pulse Resp BP Pulse Ox
98.4 F 64 18 138/52 97
05/25/24 11:11 05/25/24 12:00 05/25/24 12:00 05/25/24 10:00 05/24/24 22:25
I&O
05/24/24 05/25/24 05/26/24
06:59 06:59 06:59
Intake Total 3320 / 3320 1510 / 1510 660 / 660
Output Total 2900 / 2900 1500 / 1500 300 / 300
Balance 420 / 420 10 / 10 360 / 360
Physical Exam
-
General: Well Developed and No Apparent Distress
HEENT: Normocephalic, Atraumatic and Moist Mucous Membranes
Respiratory: Clear to Auscultation
Cardiac: Regular Rhythm and S1/S2; Negative Murmur, Rub or Gallop
GI: Soft, Nontender, Nondistended and Normal Bowel Sounds; Negative Organomegaly
Rectal: Deferred by Provider
Musculoskeletal: No Clubbing, No Cyanosis and No Edema
Skin: Negative Rash
Neuro: Nonfocal/Grossly Intact
[2024-05-25] MEDS: FERRLECIT 110 MG IV (14:52)
[2024-05-25] MEDS: NORVASC 5 MG PO (18:01)
[2024-05-25] MEDS: LOW STRENGTH ASPIRIN 81 MG PO (18:01)
[2024-05-25] MEDS: LIPITOR 40 MG PO (18:01)
--- NOTE | 2024-05-25 22:34 | PTCARENOTE ---
SHELLEY called for update; updated patient status. No beds available for tonight, will have to wait for discharges in the AM. Insurance has approved transfer. Pt updated. Pt then pressed call chucho stating she changed her mind and wants to go to [facility] instead. Will pass along to dayshift.
[2024-05-26] VITALS (15 sets, daily range): BP systolic 100–130; BP diastolic 47–74; BMI 26.0
[2024-05-26] MEDS: SYNTHROID 75 MCG PO (05:15)
[2024-05-26 05:27] LABS: Blood Urea Nitrogen 16 mg/dl (7-17); Calcium 8.4 mg/dl (8.4-10.2); Carbon Dioxide 26 mmol/L (22-30); Chloride 109 mmol/L (98-107); Estimated Creatinine Clearance 41 ml/min; Glucose 100 mg/dl (70-99); Potassium 3.9 mmol/L (3.5-5.1); Sodium 138 mmol/L (135-145); eGFR > 60.00
[2024-05-26 05:37] LABS: % Basophils 0.7 % (0-2); % Eosinophils 5.6 % (0-6); % Immature Granulocytes 0.4 % (0-0.5); % Neutrophils 61.3 % (42.2-75.2); Absolute Eosinophils 0.3 10^3/uL (0-0.7); Absolute Lymphocytes 1.2 10^3/uL (1.2-3.4); Absolute Monocytes 0.6 10^3/uL (0.1-0.6); Absolute Neutrophils 3.4 10^3/uL (1.4-6.5); Hematocrit 21.3 % (37.0-47.0); Hemoglobin 7.2 g/dL (12.0-16.0); Mean Corp Hgb Conc. 33.8 g/dL (33.0-37.0); Mean Corpuscular Hgb 30.6 pg (27.0-31.0); Mean Corpuscular Volume 90.6 fL (81.0-99.0); Mean Platelet Volume 11.5 fL (7.4-10.4); Nucleated Red Blood Cells % 0 %; Platelet Count 105 10^3/uL (130-400); Red Blood Cell Count 2.35 10^6/uL (4.20-5.40); Red Cell Dist. Width 16.2 % (11.5-14.5); White Blood Cell Count 5.5 10^3/uL (4.8-10.8)
[2024-05-26] MEDS: PROTONIX IV 40 MG IV ×2 (08:42→20:13)
[2024-05-26] MEDS: NSS (PRESERVATIVE FREE) 10 ML IV ×2 (08:42→20:14)
--- NOTE | 2024-05-26 13:47 | PTCARENOTE ---
Received this am AAOx3, pale, LC, Urine is straw/ cloudy, +BSx4. H/H noted pt c/o lightheadedness -relayed to Dr. Sung and Dr. Alejandro. 1 unit PRBC given without difficulty. Tolerated some clear liquids. Has had 2 liquid burgandy stools with
large dark clot noted at the bottom. Relayed to Dr. Alejandro. Napping currently - did not sleep well last night. Daughter at bedside all day.
--- NOTE | 2024-05-26 14:17 | W.PN.HOSP.TC ---
Today's Communication/Plan
-
Transfuse to keep hemoglobin above 8
Clear liquid diet
Pending transfer to tertiary facility for advanced procedure.
Assessment / Plan
Assessment / Plan
Assessment:
melanotic GI bleed
Acute blood loss anemia with chronic baseline AOCD
- Hb 11.2 on admission trended down to 7.2 at the lowest.
Transfuse to keep hemoglobin above 8
- ok to continue ASA per GI/Cards given cardiac history
- PPI BID IV
-Nuclear scan 05/21 positive for bleeding at the right side of the abdomen, possibly cecal
- s/p EGD 05/20: 2cm hiatal hernia otherwise normal
- s/p Colonoscopy 05/21: Non-bleeding internal hemorrhoids were found during retroflexion. The hemorrhoids were medium-sized. Multiple diverticula were found in the sigmoid colon and descending colon. The terminal ileum contained red blood. Diffuse
dark clots throughout colon more copious in right colon. A small polyp was found in the ascending colon. The polyp was sessile. Polypectomy was not attempted due to active bleeding. Acute blood loss anemia with baseline anemia of chronic disease
- s/p IR arteriogram which was negative.
- GI following; pending transfer for DBE procedure.
Aortic stenosis
CAD
Essential HTN
- was due for elective stenting of the bifurcation LAD/diagonal stenosis on 05/20/2024
- Cardiology following
- continue Norvasc
hypothyroidism
- continue replacement
HLD
- statin
breast cancer s/p XRT
Chronic osteoarthritis of her left knee
History bilateral knee replacements
DVT ppx: SCDs
Code: Full
Anticipated Discharge: 24 - 48 hours
Subjective/Interval History
-
Date of Service: May 26, 2024
Objective Data
-
Labs:
Laboratory Results
05/26/24
04:16
WBC 5.5
Hgb 7.2 L
Hct 21.3 L
Plt Count 105 L
Sodium 138
Potassium 3.9
Chloride 109 H
Carbon Dioxide 26
BUN 16
Creatinine 0.9
Glucose 100 H
Calcium 8.4
Vital Signs:
Vital Signs
Temp Pulse Resp BP Pulse Ox
97.9 F 61 26 123/61 98
05/26/24 11:18 05/26/24 12:00 05/26/24 12:00 05/26/24 12:00 05/26/24 02:05
I&O
05/25/24 05/26/24 05/27/24
06:59 06:59 06:59
Intake Total 1510 / 1510 660 / 660 1550 / 1550
Output Total 1500 / 1500 1150 / 1150 825 / 825
Balance 10 / 10 -490 / -490 725 / 725
Physical Exam
-
General: Well Developed and No Apparent Distress
HEENT: Normocephalic, Atraumatic and Moist Mucous Membranes
Respiratory: Clear to Auscultation
Cardiac: Regular Rhythm and S1/S2; Negative Murmur, Rub or Gallop
GI: Soft, Nontender, Nondistended and Normal Bowel Sounds; Negative Organomegaly
Rectal: Deferred by Provider
Musculoskeletal: No Clubbing, No Cyanosis and No Edema
Skin: Negative Rash
Neuro: Nonfocal/Grossly Intact
[2024-05-26] MEDS: FERRLECIT 110 MG IV (15:25)
--- NOTE | 2024-05-26 15:54 | W.PN.GI.CBS2 ---
Today's Communication / Plan
-
Awaiting transfer to [place]
continue monitor Hb
Assessment / Plan
-
Summary: 88yo presents with hx CAD on ASA, breast CA with prior lumpectomy and radiation, hypercholesterolemia, hypothyroidism, with recent cath in April with attempted IFR to mid RCA lesion without success due to wires. She was due for repeat
cath with plan for stenting and eventual TAVR. She now presents with 3 days of black tarry stools with some deep red stools. She reports 3 stools per day for last 5 day with normal pattern of 3 stools daily. On admission hbg 11.2 (last hbg 14.5
04/08) with BUN 32. On admission also some mild transaminase with AST 47 and alt 36. Pt report hx GI bleeding after her honeymoon years ago with ? reaction to sulfates vs other. She denies other GI bleeding in past. No hx EGD but prior
colonoscopy last about [address] [facility] with polyps.
05/24/24 PRBC 1 unit
05/21/24 PRBC 1 unit
05/21/24 ANGIOGRAM- SMA and subselective SMA arteriograms with no evidence for active bleeding
05/21/24 BLEEDING SCAN- Positive for active bleeding in R side of abdomen, either cecum or distal small bowel
05/21/24 COLON- Dark clots throughout colon, more copious in R colon. Red blood in TI. Small ascending colon polyp. Diverticulosis. Hemorrhoids
05/20/24 EGD- Hiatal hernia. No bleeding
Impression:
-Acute blood loss anemia- melena/red stool. Positive bleeding scan in area of cecum, distal SB
-CAD due for repeat cath with stenting 05/20
- due for furture TAVR
-breast CA with hx radiation in past
-elevated transaminase hepatomegaly/fatty liver on imaging
plan
Patient is accepted to be transferred to [place] for double-balloon enteroscopy. Patient is waiting for bed at [facility]. I called the transfer center today and told about her current status-continues to have bleeding. Patient is on priority list at [facility]
transfer but still waiting for the bed. Discussed with hospitalist/patient daughter. Discussed with daughter that prefer to transfer to large tertiary center considering her cardiac status.
Continue monitor H&H. Transfuse to keep hemoglobin above 7
If patient continues to have bleeding with hemodynamic instability we will get stat CTA
Discussed with daughter again that if no bed availability in [place] by tomorrow we will initiate discussing with other tertiary centers for possible transfer
Total Time Spent with Patient (in minutes): 35
Subjective
Subjective
Date of Service: May 26, 2024
Patient continues to have rectal bleeding. Denies any abdominal pain/nausea/vomiting. Receiving 1 unit PRBC today. Awaiting transfer to [place]
Objective
Data Reviewed
Laboratory Data:
Laboratory Results
05/26/24 04:16
05/26/24 04:16
Laboratory Results
PT 14.1 Sec (11.4-14.6) 05/19/24 12:28
INR 1.11 05/19/24 12:28
APTT 35.1 Sec (23.4-35.0) H 05/19/24 12:28
Total Bilirubin 1.3 mg/dl (0.2-1.3) 05/22/24 06:05
AST 38 U/L (14-36) H 05/22/24 06:05
ALT 24 U/L (0-35) 05/22/24 06:05
Alkaline Phosphatase 57 U/L (38-126) 05/22/24 06:05
Vital Signs and I&O:
Vital Signs
Temp Pulse Resp BP Pulse Ox
99.4 F 61 26 123/61 98
05/26/24 15:23 05/26/24 12:00 05/26/24 12:00 05/26/24 12:00 05/26/24 02:05
I&O
05/25/24 05/26/24 05/27/24
06:59 06:59 06:59
Intake Total 1510 / 1510 660 / 660 1550 / 1550
Output Total 1500 / 1500 1150 / 1150 825 / 825
Balance -490 / -490 725 / 725
Physical Exam
Physical Exam
GI: Soft, Non Distended and Non Tender
--- NOTE | 2024-05-26 17:04 | CM ---
Patient with Dx GI bleed, Acute blood loss anemia. Receiving IV Ferric Na Gluconate.
Plan transfer to [facility], accepting MD Knig Eduardo, transfer listed as emergent for double balloon endoscopy.
Buyback agreement completed as per prior CM notes.
Met with patient and daughter Devi; daughter asked if CM could call [facility] in an effort to expedite transfer. She was informed of below - no bed available today.
Spoke with [facility] (ph [phone]); no available bed at this time, they will contact IMU when bed available.
Ambulance form completed by Dr Mars requests cardiac monitoring - will need ALS transport.
Plan transfer to [facility] by ALS ambulance.
[2024-05-26] MEDS: LIPITOR 40 MG PO (17:43)
[2024-05-26] MEDS: LOW STRENGTH ASPIRIN 81 MG PO (17:43)
[2024-05-26] MEDS: NORVASC 5 MG PO (17:43)
--- NOTE | 2024-05-26 18:14 | PTCARENOTE ---
Tolerating clears, BP stable- had yet another mod sized formed burgandy clot this pm. Voids adequate amts- remains cloudy.
[2024-05-27] VITALS (21 sets, daily range): BP systolic 58–141; BP diastolic 41–78; BMI 26.0
[2024-05-27 02:36] LABS: Urine Albumin Trace (Neg - Trace); Urine Bilirubin Negative (Negative); Urine Character Very Cloudy (Clear); Urine Color Yellow; Urine Glucose Negative (Negative); Urine Ketone Negative (Negative); Urine Leukocyte 2+ (Negative); Urine Nitrite Negative (Negative); Urine Occult Blood 2+ (Negative); Urine Specific Gravity 1.015 (<1.030); Urine Urobilinogen Negative (Neg - 1+)
[2024-05-27 02:47] LABS: Urine Bacteria Many (Negative); Urine Red Blood Cell >100 /HPF (0-2); Urine White Cell >100 /HPF (0-5)
[2024-05-27] MEDS: SYNTHROID 75 MCG PO (05:49)
[2024-05-27 06:00] LABS: % Basophils 0.7 % (0-2); % Eosinophils 5.4 % (0-6); % Immature Granulocytes 0.3 % (0-0.5); % Neutrophils 60.6 % (42.2-75.2); Absolute Eosinophils 0.3 10^3/uL (0-0.7); Absolute Lymphocytes 1.3 10^3/uL (1.2-3.4); Absolute Monocytes 0.6 10^3/uL (0.1-0.6); Absolute Neutrophils 3.5 10^3/uL (1.4-6.5); Hematocrit 22.5 % (37.0-47.0); Hemoglobin 7.7 g/dL (12.0-16.0); Mean Corp Hgb Conc. 34.2 g/dL (33.0-37.0); Mean Corpuscular Hgb 30.7 pg (27.0-31.0); Mean Corpuscular Volume 89.6 fL (81.0-99.0); Mean Platelet Volume 11.4 fL (7.4-10.4); Nucleated Red Blood Cells % 0 %; Platelet Count 101 10^3/uL (130-400); Red Blood Cell Count 2.51 10^6/uL (4.20-5.40); Red Cell Dist. Width 16.2 % (11.5-14.5); White Blood Cell Count 5.7 10^3/uL (4.8-10.8)
[2024-05-27 06:15] LABS: Blood Urea Nitrogen 17 mg/dl (7-17); Calcium 8.1 mg/dl (8.4-10.2); Carbon Dioxide 23 mmol/L (22-30); Chloride 109 mmol/L (98-107); Estimated Creatinine Clearance 46 ml/min; Glucose 105 mg/dl (70-99); Potassium 3.8 mmol/L (3.5-5.1); Sodium 137 mmol/L (135-145); eGFR > 60.00
--- NOTE | 2024-05-27 06:36 | PTCARENOTE ---
Patient had one large dark red/burgundy stool with clots. denies any dizziness. HR 40-60s. c/o urinary urgency and dysuria. urine appears to be cloudy. UA sent. pt voicing frustrations over the transfer. BP reads low when pt is sleeping and laying
on BP cuff arm. Reads normal when awake. denies lightheadedness. Call rankin and tray table within reach. Calls appropriately.
[2024-05-27] MEDS: NSS (PRESERVATIVE FREE) 10 ML IV (08:21)
[2024-05-27] MEDS: PROTONIX IV 40 MG IV (08:21)
--- NOTE | 2024-05-27 09:55 | W.PN.CARDCBS ---
Addendum entered and electronically signed by John David MD 05/27/24 16:17:
I saw and examined the patient.
The Booster Plant Operator's note was reviewed and I agree with the note.
Comment:
GEN: No distress, awake, Ox3
HEENT: supple, anicteric, mmm
LUNGS: CTA, no wheezes/rales
CV: Reg, S1/S2, 3/6 syst LSB, no gallop
ABD: soft, BS+, NT/ND
EXT: No edema
NEURO: Gross non-focal
SKIN: No rash
Plan:
Agree with transfusion. Keep Hg >8.
Hold Norvasc
cont tele. No marked heart block. Avoid all AV lesia [place]
Original Note:
Today's Communication / Plan
-
norvasc now PRN. avoid hypotension with severe and ongoing bleeding
follow HRs
transfuse
awaiting transfer to [place]
Impression / Plan
-
Primary Sanding Machine Operator: Dr. David
Assessment:
Presentation with dark stools, heme positive
GI bleed, suspected distal small bowel
severe , undergoing TAVR eval
LAD and RCA disease by cath 04/08/24
First-degree AV block, chronic
HTN
HLD
hypothyroidism
History of breast cancer status post lumpectomy and radiation therapy 2018
OA
ECHO 03/04/24: EF 70%, mild MR, severe aortic stenosis with peak/mean gradient 78/53 mmHg, YIFAN 0.7 cm�, trace AR, mild TR, PAP 23 to 25 mmHg
Plan:
-she continues with ongoing GI bleeding. for transfer to [place] when bed available for double balloon enteroscopy
-she is feeling poorly
-hgb down to 7.7 with associated hypotension and dizziness. for transfusion today
-will change norvasc to QPM PRN for SBP>140. avoid hypotension as able in setting of severe
-she has chronic marked 1st degree av block. she is noted to have some angela/brief pauses all less than 2.5 seconds, mostly nocturnal on review of tele last 24 hours. not on av lesia blocking agents, continue to avoid. no indication for permanent
ppm at this time. will follow closely on tele
-LAD and RCA stenting will be deferred to outpatient when she is completely recovered from GI bleeding as do not want to risk stent thrombosis if Plavix would have to be interrupted due to GI bleeding. once stents completed, can then move forward
with TAVR scheduling
-d/w daughter at bedside. d/w hospitalist, nursing
Progress Note - Sanding Machine Operator
Subjective
Date of Service: May 27, 2024
Denies abdominal pain. Reports feeling weak and tired. Reports dizziness at times associated with hypotension
Objective
Labs:
05/27/24 05:
05/27/24 05:
Labs
Hgb 7.7 g/dL (12.0-16.0) L 05/27/24:
Hct 22.5 % (37.0-47.0) L 05/27/24 05:29
Plt Count 101 10^3/uL (130-400) L 05/27/24 05:
PT 14.1 Sec (11.4-14.6) 05/19/24 12:28
INR 1.11 05/19/24 12:28
APTT 35.1 Sec (23.4-35.0) H 05/19/24 12:28
Sodium 137 mmol/L (135-145) 05/27/24:
Potassium 3.8 mmol/L (3.5-5.1) 05/27/24:
BUN 17 mg/dl (7-17) 05/27/24:
Creatinine 0.8 mg/dL (0.6-1.0) 05/27/24:
Glucose 105 mg/dl (70-99) H 05/27/24 05:29
Vital Signs and I&O:
Vital Signs
Temp Pulse Resp BP Pulse Ox
98.0 F 60 18 88/48 98
05/27/24 02:12 05/27/24 06:00 05/27/24 06:00 05/27/24 06:00 05/27/24 05:50
Vital Signs
Temp Pulse Resp BP Pulse Ox
98.0 F 60 18 88/48 98
05/27/24 02:12 05/27/24 06:00 05/27/24 06:00 05/27/24 06:00 05/27/24 05:50
Intake & Output
05/25/24 05/26/24 05/27/24 05/28/24
07:59 07:59 07:59 07:59
Intake Total 1510 / 1510 660 / 660 2650 / 2650
Output Total 1500 / 1500 1150 / 1150 2275 / 2275
Balance -490 / -490 375 / 375
Physical Exam
Physical Exam
GEN: No distress, awake, alert, oriented x3. pale appearing
HEENT: supple, anicteric, mmm, eomi
LUNGS: CTA B/L, no wheezes/rales
CV: Reg, S1/S2, 2/6 syst LSB
ABD: soft, BS+, NT/ND
EXT: No cyanosis, clubbing, edema
NEURO: Gross non-focal
SKIN: Warm, pink, dry. No rash
--- NOTE | 2024-05-27 10:27 | W.PN.GI.CBS2 ---
Addendum entered and electronically signed by Erma Alejandro MD 05/27/24 17:23:
I saw and examined the patient.
The CONTINUING EDUCATION DIRECTOR's note was reviewed and I agree with the note.
update
CTA 05/27
IMPRESSION:
Active bleeding in the distal ileum.
Small hematoma in the right retroperitoneum at the level of the right external iliac artery likely from recent intervention. No evidence of pseudoaneurysm.
Arteriogram 05/2024
No contrast extravasation noted. No embolization performed
plan
Continue monitor H&H
Discussed this a.m. with [facility] team for double-balloon enteroscopy. Awaiting transfer to [facility]. Case discussed with medical team/patient/family.
Original Note:
Today's Communication / Plan
-
Await CTA
Transfuse
Await transfer to tertiary center
Assessment / Plan
-
Summary: 88yo presents with hx CAD on ASA, breast CA with prior lumpectomy and radiation, hypercholesterolemia, hypothyroidism, with recent cath in April with attempted IFR to mid RCA lesion without success due to wires. She was due for repeat
cath with plan for stenting and eventual TAVR. She now presents with 3 days of black tarry stools with some deep red stools. She reports 3 stools per day for last 5 day with normal pattern of 3 stools daily. On admission hbg 11.2 (last hbg 14.5
6/5) with BUN 32. On admission also some mild transaminase with AST 47 and alt 36. Pt report hx GI bleeding after her honeymoon years ago with ? reaction to sulfates vs other. She denies other GI bleeding in past. No hx EGD but prior
colonoscopy last about 10 years ago at [facility] with polyps.
--> to be transfused 1 unit PRBC today 05/27/24
05/26/24 PRBC 1 unit
05/24/24 PRBC 1 unit
05/21/24 PRBC 1 unit
05/21/24 ANGIOGRAM- SMA and subselective SMA arteriograms with no evidence for active bleeding
05/21/24 BLEEDING SCAN- Positive for active bleeding in R side of abdomen, either cecum or distal small bowel
05/21/24 COLON- Dark clots throughout colon, more copious in R colon. Red blood in TI. Small ascending colon polyp. Diverticulosis. Hemorrhoids
05/20/24 EGD- Hiatal hernia. No bleeding
Impression:
-Acute blood loss anemia- melena/red stool. Positive bleeding scan in area of cecum, distal SB
-CAD due for repeat cath with stenting 05/20
- due for furture TAVR
-breast CA with hx radiation in past
-elevated transaminase hepatomegaly/fatty liver on imaging
Plan:
-CTA to be performed today. Discussed with Dr. Tomlinson at [facility], she is asking for Arterial and venous phase if able. Called to CT scan, they can perform.
-Transfuse PRBC as ordered
-Patient is accepted to be transferred to [place] for double-balloon enteroscopy. Patient is waiting for bed at [place]. I called the transfer center today and told about her current status-continues to have bleeding. Patient is on priority list at [facility]
transfer but still waiting for the bed. Discussed with hospitalist/patient daughter. Discussed with daughter that prefer to transfer to large tertiary center considering her cardiac status. Would like to try another institution as we have been
waiting for multiple days.
-Call placed to [facility] and patient accepted in transfer under the service of Dr. Martin (Hospitalist) with GI consult (Dr. Tomlinson). Discussed with both. Aware of current status.
-Continue monitor H&H. Transfuse to keep hemoglobin above 7
Subjective
Subjective
Date of Service: May 27, 2024
Patient still passing maroon blood and clots this am. No abdominal pain. Going to CTA this am. Hgb 7.7 this am (up from 7.2 after 1 unit PRBC yesterday). Going to get another unit PRBC now.
Objective
Data Reviewed
Laboratory Data:
Laboratory Results
05/27/24 05:29
05/27/24 05:29
Laboratory Results
PT 14.1 Sec (11.4-14.6) 05/19/24 12:28
INR 1.11 05/19/24 12:28
APTT 35.1 Sec (23.4-35.0) H 05/19/24 12:28
Total Bilirubin 1.3 mg/dl (0.2-1.3) 05/22/24 06:05
AST 38 U/L (14-36) H 05/22/24 06:05
ALT 24 U/L (0-35) 05/22/24 06:05
Alkaline Phosphatase 57 U/L (38-126) 05/22/24 06:05
Vital Signs and I&O:
Vital Signs
Temp Pulse Resp BP Pulse Ox
98.2 F 60 18 88/48 98
05/27/24 07:30 05/27/24 06:00 05/27/24 06:00 05/27/24 06:00 05/27/24 05:50
I&O
05/26/24 05/27/24 05/28/24
06:59 06:59 06:59
Intake Total 660 / 660 2650 / 2650
Output Total 1150 / 1150 2275 / 2275
Balance -490 / -490 375 / 375
Physical Exam
Physical Exam
HEENT: Anicteric
Cardiology: Murmur
Pulmonary: Clear
GI: Soft, Non Distended, Non Tender and Normal Bowel Sounds
Extremities: No Edema
Neuro: Non Focal
[2024-05-27] MEDS: ROCEPHIN 1000 MG IV (11:06)
[2024-05-27] MEDS: STERILE WATER FOR INJECTION 10 ML IV (11:06)
--- NOTE | 2024-05-27 13:13 | PTCARENOTE ---
Assumed care of patient at beginning of this shift from previous RN. Daughter in to visit patient; both stated they are frustrated at not being transferred to [facility]. Daughter stated patient placed call to [facility] and is requesting to speak
with hospitalist. Fadi text sent to Dr Sung who was up to see patient and daughter.
Per change of shift report, RN stated patient's HR decreased to the 30s with episode of Mobitz II. SHANE Anne with cardiology in to see patient and made aware of RNs report from previous shift; she stated she will discuss with Dr David who
sees patient outpatient. Patient currently ST with large 1st deg HB.
1 unit PRBCs ordered by Dr Sung; to be started now as patient was down for CT angiogram. Dr Sung up to see patient and daughter to give results.
See worklist for full assessment and vital signs; see MAR for med administration.
--- NOTE | 2024-05-27 13:49 | PTCARENOTE ---
Patient receiving PRBCs.
--- NOTE | 2024-05-27 14:44 | PTCARENOTE ---
Patient was taken to [facility] via bed, accompanied by this RN and transport volunteer, with PRBCs infusing. Report given to Althea who stated she received the pink transfusion form from blood bank and will continue documentation on that as they do not
do TAR. Patient's daughter remains in patient room.
--- NOTE | 2024-05-27 15:16 | PTCARENOTE ---
[facility] called with a bed assignment. Dr Sung made aware that patient is still in [facility]. This RN asked if transport arrangements wait until after [facility] or if patient will be going to [facility] regardless; Dr Sung replied that patient should be
transferred regardless. This nurse updated daughter who stated she wanted to speak with Dr Sung before transport is set up in case [facility] can fix the bleed. [place] text sent to Dr Sung who read text.
--- NOTE | 2024-05-27 15:30 | W.PN.HOSP.TC ---
Today's Communication/Plan
-
CT angiogram positive for bleeding at the distal ileum
Interventional radiology consultation for arteriogram and possible embolization
Pending transfer to tertiary facility for double-balloon enteroscopy.
Transfuse to keep hemoglobin above 8
Empiric antibiotics/ceftriaxone for bleeding.
Assessment / Plan
Assessment / Plan
Impression.
Acute gastrointestinal hemorrhage.
-Presentation with melanotic stools
Anemia of acute blood loss.
Suspected UTI, patient with dysuria
Other conditions:
Severe aortic stenosis with undergoing workup for TAVR.
CAD with LAD and RCA disease by cath 04/2040
First-degree AV block, chronic
Essential hypertension
Dyslipidemia
Hypothyroidism on replacement
History of breast carcinoma status post lumpectomy and radiation treatment in 2018
Osteoarthritis.
Plan
melanotic GI bleed
Acute blood loss anemia with chronic baseline AOCD
- Hb 11.2 on admission trended down to 7.2 at the lowest.
Suspect AVM bleeding in the distal ileum.
-Nuclear scan 05/21 positive for bleeding at the right side of the abdomen, possibly cecal
- s/p EGD 05/20: 2cm hiatal hernia otherwise normal
- s/p Colonoscopy 05/21: Non-bleeding internal hemorrhoids were found during retroflexion. The hemorrhoids were medium-sized. Multiple diverticula were found in the sigmoid colon and descending colon. The terminal ileum contained red blood. Diffuse
dark clots throughout colon more copious in right colon. A small polyp was found in the ascending colon. The polyp was sessile. Polypectomy was not attempted due to active bleeding. Acute blood loss anemia with baseline anemia of chronic disease
- s/p IR arteriogram which was negative.
-With ongoing bleeding CT angiogram performed on 05/27 positive for active bleeding in the distal ileum.
-Interventional radiology consultation for urgent arteriogram placed
-Pending transfer for tertiary facility for double-balloon enteroscopy awaiting for bed availability.
-Transfuse to keep hemoglobin above 8
-Continue IV PPI
Suspected UTI
Complaints of dysuria
Abnormal urinalysis pending urine cultures
Start ceftriaxone empirically
Aortic stenosis ongoing evaluation for TAVR
CAD
ECHO 03/04/24: EF 70%, mild MR, severe aortic stenosis with peak/mean gradient 78/53 mmHg, YIFNA 0.7 cm�, trace AR, mild TR, PAP 23 to 25 mmHg
Essential HTN
Remains on aspirin.
Hold Norvasc for hypotension
hypothyroidism
- continue replacement
HLD
- statin
breast cancer s/p XRT
Chronic osteoarthritis of her left knee
History bilateral knee replacements
DVT ppx: SCDs
Code: Full
Anticipated Discharge: > 48 hours
Subjective/Interval History
-
Date of Service: May 27, 2024
Objective Data
-
Labs:
Laboratory Results
05/27/24
05:29
WBC 5.7
Hgb 7.7 L
Hct 22.5 L
Plt Count 101 L
Sodium 137
Potassium 3.8
Chloride 109 H
Carbon Dioxide 23
BUN 17
Creatinine 0.8
Glucose 105 H
Calcium 8.1 L
Vital Signs:
Vital Signs
Temp Pulse Resp BP Pulse Ox
98.1 F 65 16 120/78 97
05/27/24 14:30 05/27/24 14:30 05/27/24 14:30 05/27/24 14:30 05/27/24 14:56
I&O
05/26/24 05/27/24 05/28/24
06:59 06:59 06:59
Intake Total 660 / 660 2650 / 2650 0 / 0
Output Total 1150 / 1150 2275 / 2275
Balance -490 / -490 375 / 375 0 / 0
Physical Exam
-
General: Well Developed and No Apparent Distress
HEENT: Normocephalic, Atraumatic and Moist Mucous Membranes
Respiratory: Clear to Auscultation
Cardiac: Regular Rhythm and S1/S2; Negative Murmur, Rub or Gallop
GI: Soft, Nontender, Nondistended and Normal Bowel Sounds; Negative Organomegaly
Rectal: Deferred by Provider
Musculoskeletal: No Clubbing, No Cyanosis and No Edema
Skin: Negative Rash
Neuro: Nonfocal/Grossly Intact
--- NOTE | 2024-05-27 16:12 | W.PN.UPDATE ---
Update Note
Progress Note Update
Superselective arteriogram performed of multiple branches of the SMA. Poor imaging quality due to body habitus and peristasis of bowel, but no extravasation seen.
Bedrest for 2 hours.
--- NOTE | 2024-05-27 17:00 | PTCARENOTE ---
PRBC ended in [facility] by JOANIE Del Real at 18:06. Per Nasima, patient received full unit PRBC and was ended on pink transfusion sheet.
[2024-05-27] MEDS: FERRLECIT 110 MG IV (17:03)
--- NOTE | 2024-05-27 17:16 | PTCARENOTE ---
Vital signs entered into TAR as per writtent documentation by Nasima Anne RN [facility].
--- NOTE | 2024-05-27 17:57 | PTCARENOTE ---
WHIT unable to reach the bleed per Dr Sung; plan is for patient to go to [place]. Daughter aware and agreeable. Patient initially for pickup at 23:00 that was changed to 18:30. Report given to Daron at [facility]. Patient to lay flat until 18:15.
--- NOTE | 2024-05-27 17:59 | PTCARENOTE ---
R groin bandaid intact; patient with positive sensation; positive pulses. No bruising at site.
[2024-05-27] MEDS: LIPITOR 40 MG PO (18:16)
[2024-05-27] MEDS: LOW STRENGTH ASPIRIN 81 MG PO (18:16)
--- NOTE | 2024-05-27 18:23 | PTCARENOTE ---
Patient due for aspirin 81mg po. Reviewed with Dr Domingo, hospitalist covering floors; instructed to give as ordered.
--- NOTE | 2024-05-27 18:24 | PTCARENOTE ---
Patient and daughter requested patient wear depends for transport to [place]; attends placed on patient.
--- NOTE | 2024-05-27 21:15 | PTCARENOTE ---
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 Prior RN(Tamar) called report at [facility]. Update given to transport crew. Pt and daughters at bedside helping pt to BR and collecting belongings before
leaving. IV remains in place.
Pt left via stretcher with transport crew on tele monitor. Pt thankful for care.
[facility] transfer center called for update; made aware pt is leaving now to go to [place] and does not need a bed at [facility].
== END 2024-05-27 21:15 | disposition short-term general hospital (02) | DRG 378 ==
LOC: IMU 15:17
PROVIDERS: Clinical Nurse Specialist Family Health; Emergency Medicine; Nurse Practitioner Adult Health; Nurse Practitioner Gerontology; ADMITTING PHYSICIAN Internal Medicine; ATTENDING PHYSICIAN Internal Medicine; CONSULT PHYSICIAN Internal Medicine Cardiovascular Disease; CONSULT PHYSICIAN Internal Medicine Gastroenterology; EMERGENCY PHYSICIAN Emergency Medicine; FAMILY PHYSICIAN Family Medicine
PROC: 0DJ08ZZ Inspection of Upper Intestinal Tract, Via Natural or Artificial Opening Endoscopic (ICD-10-PCS; 2024-05-20)
PROC: 30233N1 Transfusion of Nonautologous Red Blood Cells into Peripheral Vein, Percutaneous Approach (ICD-10-PCS; 2024-05-21)
PROC: 0DJD8ZZ Inspection of Lower Intestinal Tract, Via Natural or Artificial Opening Endoscopic (ICD-10-PCS; 2024-05-21)
DX: K57.31 Diverticulosis of large intestine without perforation or abscess with bleeding (principal); D62 Acute posthemorrhagic anemia; N39.0 Urinary tract infection, site not specified; K44.9 Diaphragmatic hernia without obstruction or gangrene; I25.10 Atherosclerotic heart disease of native coronary artery without angina pectoris; I10 Essential (primary) hypertension; E03.9 Hypothyroidism, unspecified; E78.5 Hyperlipidemia, unspecified; I35.0 Nonrheumatic aortic (valve) stenosis; I44.0 Atrioventricular block, first degree; K64.8 Other hemorrhoids; K63.5 Polyp of colon; B96.20 Unspecified Escherichia coli [E. coli] as the cause of diseases classified elsewhere; Z85.3 Personal history of malignant neoplasm of breast
CPT/HCPCS: 36246; 74174; 74177; 75726; 76937; 78278; 80048; 80053; 81003; 81015; 82607; 82728; 82746; 83540; 83550; 85014; 85018; 85025; 85027; 85610; 85730; 86704; 86705; 86706; 86803; 86850; 86900; 86901; 86920; 87086; 87088; 87340; 93005; 96361; 96374; 97162; 97166; 99285; A9560; C1769; C1887; J2916; P9016; Q9967

== ENCOUNTER 2024-07-02 05:39 | Inpatient (IN) | payer OTHER, SELFPAY ==
--- NOTE | 2024-06-22 07:47 | HPS.HSE ---
Family Physician
-
Family Physician: Jose Pedraza
Chief Complaint
-
SAINI
History of Present Illness
Ms. Linares is a very pleasant 88 yof that presents with a complex medical history including severe symptomatic aortic Stenosis. Her echocardiogram from 03/04/2024 is notable for an aortic valve P/M 78/53, YIFAN 0.7, pk korin 4.43, trace AI, dense MAC, mild
MR, mild TR, PAP 23-25. She also has significant CAD as noted on cath from 04/08/2024: Heavily calcified coronary arteries with significant at least two-vessel coronary artery disease, Mid LAD 80 to 90% stenosis at the level of the takeoff of the
major diagonal branch with extension of disease into the ostium of the diagonal (Davis 1, 1, 1), Two serial lesions in the mid RCA up to 60 to 70%, calcified, Known severe symptomatic aortic stenosis based on last echocardiogram with mean
transaortic gradient of 53 mmHg, aortic valve area of 0.7 cm�, Multiple attempts were made to obtain IFR of the mid RCA lesions however unsuccessful due to significant drift in 2 separate wires. Ms. Linares was discussed with the heart team and
initial plan was to bring patient back for PCI, re-evaluate and discuss timing of TAVR. However, she developed a GIB with a hgb requiring transfusions delaying PCI d/t DAPT requirement. Ms. Linares was evaluated by GI and was sent to a tertiary care
center for double balloon enteroscopy. An AVM in the distal ilium was treated with APC and a hemoclip was placed, an AVM in the cecum was also treated with APC and patient was discharged. Patient was discussed again with the heart team and the team
concluded the best treatment option, due to recent GIB, would be to treat with TAVR on aspirin only, re-evaluate and PCI at a later date. The heart team discussed a 23 mm S3 via (L) transfemoral access using a short pacing run. Ms. Linares is
scheduled for TAVR on 07/02/[address] Balbuena and Lakesha.
Assessed Ms. Milagros in preadmission testing and confirmed medication list, she will continue aspirin and levothyroxine including the morning of TAVR. She states she has discontinued amlodipine r/t hypotension and has also stopped her fish oil.
Patient will arrive to the heart and vascular pavilion at 0530. Reviewed the risks of the TAVR including stroke, ppm, and vascular injury. Informed her that she will get a phone call from the heart team on Saturday07/01/2024 to confirm time and
location of arrival. Allowed for and answered questions.
Medical History
Past Medical History
Past Medical History: Reports CAD, Hypercholesterolemia, Hypothyroidism, Valvular Disease (aortic stenosis) and Other (dyslipidemia, breast calcifications, bilateral breast cancer (radiation therapy), OA, UTI, first degree AVB)
Past Surgical History: Reports Gynocological (hysterectomy, lumpectomy x2), Orthopedic (bilateral TKArthroscopy) and Other ((R) lymph node resection, capsulectomy of lens, cataract)
Social History
Tobacco: Non-smoker
Alcohol: Occasional
Drug: None
Personal:
Living: With Family
Employment: Retired
Family History
Family History: Not pertinent
Allergies / Home Medications
Allergies reflects when Allergies were last updated in [facility].
Sulfa
metformin
tamoxifen
Home Medications with original date entered in [facility]
Allergy/Medication List:
Aspirin 81 MG Tablet Delayed Release 1 tablet Orally Once a day
Atorvastatin Calcium 40 MG Tablet 1 tablet Orally Once a day
Centrum Silver(Multiple Vitamins-Minerals) - Tablet 1 tablet Orally Once a Day
Fiber 625 MG Tablet 1 tablet Orally Once a Day
Fish Oil 1200 MG Capsule 2 tablets Orally Twice a Day
Glucosamine 500 MG Capsule 1 capsule with a meal Orally Twice a Day
Levothyroxine Sodium 75 MCG Tablet 1 tablet Orally Once a day
Review of Systems
-
History Source: Patient
Constitutional: Reports Fatigue
EENT: Reports No Symptoms
Respiratory: Reports Other (SAINI)
Cardiac: Reports Chest Pain (intermittent)
Abdomen/GI: Reports No Symptoms
: Reports No Symptoms
Musculoskeletal: Reports No Symptoms
Skin: Reports No Symptoms
Neurological: Reports No Symptoms
Endocrine: Reports No Symptoms
Hematologic/Lymphatic: Reports No Symptoms
Psych: Reports No Symptoms
Physical Exam
Physical Exam
General: Well Developed and Well Nourished
HEENT: Moist mucous membranes, Nose Appears Normal and Ears Appear Normal
Respiratory: Clear
Cardiac: Regular Rhythm and Murmur (III/ MALINDA)
Breast: Deferred by me
GI: Soft and Non Tender
Rectal: Deferred by Provider
Genito-urinary: Deferred by me
Musculoskeletal: No Edema
Skin: Warm and Dry
Neuro: Awake, Alert, Oriented and AO x 3
Psych: Calm
Data Reviewed
-
CT Scan: Report Reviewed by me and Discussed with Physician (TAVR CT scan reviewed with the heart team)
Medical Tests (Nuc Med, Echo, EKG etc): Report Reviewed by me and Discussed with Physician (echocardiogram and cardiac catheterization reviewed with the heart team)
Lab Data: Labs Reviewed by me
Old Records: Reviewed (Dr. Mckenna's office note, inpatient hospital notes from latest admission, Enteroscopy report from [facility])
Impression/Plan
-
IMPRESSION/PLAN:
Aortic Stenosis
TF TAVR planned utilizing a 23 mm S3 via (L) TF access with Drs. Crowder and Esha
Continue aspirin
POD#1/#30 echocardiogram
Cardiac rehab consult.
CAD
Continue Aspirin/atorvastatin
Discuss timing for PCI (will need DAPT)
Recent GIB treated at [facility]--Hgb stable
Labs
-
Labs:
WBC 4.5 10^3/uL (4.8-10.8) L 06/22/24 08:57
RBC 3.99 10^6/uL (4.20-5.40) L 06/22/24 08:57
Hgb 12.5 g/dL (12.0-16.0) 06/22/24 08:57
Hct 37.3 % (37.0-47.0) 06/22/24 08:57
Plt Count 128 10^3/uL (130-400) L 06/22/24 08:57
Sodium 138 mmol/L (135-145) 06/22/24 08:57
Potassium 4.1 mmol/L (3.5-5.1) 06/22/24 08:57
Chloride 105 mmol/L (98-107) 06/22/24 08:57
Carbon Dioxide 24 mmol/L (22-30) 06/22/24 08:57
BUN 25 mg/dl (7-17) H 06/22/24 08:57
Creatinine 0.9 mg/dL (0.6-1.0) 06/22/24 08:57
eGFR > 60.00 06/22/24 08:57
Glucose 105 mg/dl (70-99) H 06/22/24 08:57
Calcium 9.9 mg/dl (8.4-10.2) 06/22/24 08:57
Buw-F-Usqvjuodmri Pept 552 pg/ml 06/22/24 08:57
Albumin 4.2 g/dl (3.5-5.0) 06/22/24 08:57
[2024-06-22 09:49] LABS: INR 1.12; PT 14.3 Sec (11.4-14.6)
[2024-06-22 09:50] LABS: APTT 42.7 Sec (23.4-35.0)
[2024-06-22 09:54] LABS: % Basophils 1.1 % (0-2); % Eosinophils 4.5 % (0-6); % Immature Granulocytes 0.2 % (0-0.5); % Lymphocytes 21.9 % (20.5-51.1); % Monocytes 10.3 % (1.7-9.3); Absolute Basophils 0.1 10^3/uL (0-0.2); Absolute Eosinophils 0.2 10^3/uL (0-0.7); Absolute Monocytes 0.5 10^3/uL (0.1-0.6); Absolute Neutrophils 2.8 10^3/uL (1.4-6.5); Hematocrit 37.3 % (37.0-47.0); Hemoglobin 12.5 g/dL (12.0-16.0); Mean Corp Hgb Conc. 33.5 g/dL (33.0-37.0); Mean Corpuscular Hgb 31.3 pg (27.0-31.0); Mean Corpuscular Volume 93.5 fL (81.0-99.0); Mean Platelet Volume 11.1 fL (7.4-10.4); Nucleated Red Blood Cells % 0 %; Platelet Count 128 10^3/uL (130-400); Red Blood Cell Count 3.99 10^6/uL (4.20-5.40); Red Cell Dist. Width 14.3 % (11.5-14.5); White Blood Cell Count 4.5 10^3/uL (4.8-10.8)
[2024-06-22 10:00] LABS: NT-proBNP 552 pg/ml
[2024-06-22 10:15] LABS: ALT (SGPT) 39 U/L (0-35); AST (SGOT) 55 U/L (14-36); Albumin 4.2 g/dl (3.5-5.0); Alkaline Phosphatase 87 U/L (38-126); Blood Urea Nitrogen 25 mg/dl (7-17); Calcium 9.9 mg/dl (8.4-10.2); Carbon Dioxide 24 mmol/L (22-30); Chloride 105 mmol/L (98-107); Direct Bilirubin 0.2 mg/dl (0.0-0.4); Glucose 105 mg/dl (70-99); Potassium 4.1 mmol/L (3.5-5.1); Sodium 138 mmol/L (135-145); Total Bilirubin 0.9 mg/dl (0.2-1.3); Total Protein 7.1 g/dl (6.3-8.2); eGFR > 60.00
[2024-06-22 10:46] LABS: Urine Albumin Trace (Neg - Trace); Urine Bilirubin Negative (Negative); Urine Character Clear (Clear); Urine Color Yellow; Urine Glucose Negative (Negative); Urine Ketone Negative (Negative); Urine Leukocyte Negative (Negative); Urine Nitrite Negative (Negative); Urine Occult Blood Negative (Negative); Urine Specific Gravity 1.015 (<1.030); Urine Urobilinogen Negative (Neg - 1+)
--- NOTE | 2024-06-22 12:36 | CM ---
spoke to pt and daughter in PAT's, we discussed preop TAVR teaching including lifting and driving instructions. she is prev indep, lives with her husb in a 2 story home with 2 steps t enter. she denies any dme's. pt agreeable to a f/u visit from the
ct transitional care nurse after dc. she has the TAVR educ book, soap and instructions. cm role expained and all questions answered. plan is for TAVR 07/02.
[2024-06-22 16:26] LABS: Glycohemoglobin (HgbA1c) 4.5 % (4.0-5.6)
[2024-07-02] VITALS (41 sets, daily range): BP systolic 107–170; BP diastolic 50–102; BMI 25.8
--- NOTE | 2024-07-02 06:12 | PTCARENOTE ---
Pt. arrived at 0535 with daughter Maryan for scheduled TAVR. Pt. prepped for TAVR per protocol. Pt. AOx3. Tele reading NSR with a first degree AVB. B/L BP documented. No complaints of pain at this time. Continuing to monitor the patient at this
time.
--- NOTE | 2024-07-02 06:33 | W.CVOR.SURPR ---
CVOR Surgeon Immed Pre Op
-
I have examined this patient prior to performance of the scheduled procedure.
The patient's condition is unchanged from the time of the dictated/written History and
Physical and the patient is able to undergo the scheduled procedure.
TF TAVR
[2024-07-02] MEDS: ANCEF 10 IV (08:00)
[2024-07-02 08:24] LABS: ACT-LR - POC 345 Seconds (116-155)
--- NOTE | 2024-07-02 08:53 | W.PN.CT.SURG ---
CT Surgery Operative Note
-
OPERATIVE REPORT
Preoperative Diagnosis: Severe aortic valve stenosis, symptomatic
Postoperative Diagnosis: Same
Procedure(s) Performed: Left trans femoral TAVR with a 23 mm Anderson TAVR valve
Date of Procedure: 07/02/2024
Comorbidities:
1. Severe aortic stenosis, symptomatic
2. Severe multivessel coronary artery disease
3. Severe GI bleed requiring 11 units of blood
4. History of breast cancer
5. First-degree AV block
6. Diaphragmatic hernia
7. CKD stage III
8. Hyperlipidemia
9. Hypertension
10. Acute on chronic congestive heart failure, systolic and diastolic, LVEDP pre-TAVR was 27 mmHg
11. SEBLE
Cardiac Surgeon: Herbie Crowder MD, MS
Marine Diesel Mechanic: Laurel Balbuena MD
Anesthesia: LMA and Local Analgesia
EBL: 150cc
Products: none
Implant: 23 mm Anderson TAVR valve, SN: [id number]
Indication(s) for Procedures: 88-year-old female with symptomatic severe aortic stenosis. She also developed significant GI bleeding secondary to an AVM that required cauterization. CT-TAVR protocol revealed acceptable anatomy for TAVR access and
implantation.
Start time: 0737hrs
Deployment time: 0825hrs
End time: 0841hrs
Radiation Dose (mGy): 342.18
DAP (cm2.Gy): 47.9893
Fluoroscopy time (minutes): 16.7
Contrast volume (ml): 140
TAVR gradient (mmHg): 7mmHg
Heparin Dose: 6000units
Protamine Dose: 30mg
Final Valve Positionin/20
Findings: Preoperative LVEF was 65% and was 65% following TAVR without inotropic support. Function was overall normal without regional wall motion abnormalities or dyskinesia. The aortic valve was well seated with trace detectable PVL and mean
gradient across the new valve was 7 mmHg. she had a first-degree AV block preoperatively and also was bradycardic. Following up another valve she resumed her first-degree AV block but became significantly bradycardic requiring ventricular pacing.
The temporary pacing wire was left in place. Her root was relatively horizontal and so the valve was deployed in a sort of canted position however there was no significant paravalvular leak and good functioning of the valve. LVEDP pre-TAVR was 27
mmHg indicating acute on chronic systolic and diastolic congestive heart failure requiring Lasix in the ICU. Due to a slightly lower stick on the device side in the SFA, we opted to remove the sheath and perform a manual hold. There was successful
placement of 23 mm TAVR valve without acute complications.
Access:
1. Device -left common femoral artery, perclose x 2
2. Pigtail -right common femoral artery plus manual hold
3. Transvenous Pacer -right common femoral vein
Description of Procedure: The patient was taken to the powerhouse laborer. Their identity and procedure to be performed were verified and they were positioned supine on the powerhouse laborer table. Induction via conscious sedation. The patient was then prepped and
draped from chin to thigh in a sterile fashion. A preoperative time-out was performed with all members of the team present. Arterial and venous access was performed using fluoroscopy and ultrasound guidance with micropuncture and Seldinger
technique. Two perclose devices were used on the device side followed by access to the aorta with a stiff wire to facilitate E-sheath placement. Heparin was given. A stiff straight wire and AL-1 catheter was used to cross the aortic valve. An LVEDP
was measured here the stiff wire was exchanged for an extra stiff coiled tip wire. The valve was prepped and mounted on to the device carrier. An ACT of >250 was achieved. We verified x 3 that the valve was mounted in the correct orientation with
the skirt of the valve directed toward the tip of the device carrier. We advanced the device into the descending thoracic aorta where the valve was them mounted onto the balloon under fluoroscopy. The device was flexed and advanced over the arch
into the root and positioned across the aortic valve. Contrast fluoroscopy was used to visualize the prosthesis across the valve and to guide positioning. A pigtail catheter in the RCC as used as a guide. We aimed to have the bottom of the device
marker at the annular hinge point. The device sheath was pulled back. We performed a quick pre-deployment time out. The pacer was turned on and had capture. Blood pressure fell accordingly, angiography was done to verify the intended final placement
and the valve was deployed with 5 seconds of rapid pacing to nominal volume. The balloon was deflated and the pacer was turned off. We had recovery of vitals. The device carrier was unflexed and positioned back in the descending thoracic aorta. A
transthoracic echocardiogram was performed. The device was removed from the E-Sheath maintaining wire access followed by removal of the E-sheath as we cinched down the perclose devices. There was acceptable hemostasis. The pigtail was withdrawn into
the descending/abdominal and completion aortogram with runoff run-off angiography was performed. There was no stenosis or dissection of bilateral iliofemoral systems. There was acceptable hemostasis of the device side groin. We opted to leave the
TVPW in place due to her pacing requirements as low as 40bpm, and also left the 6Fr sheath in place on the non device side as it was introduced into the SFA.
All instrument, sponge, and needle counts were confirmed to be correct x 2 at the end of the operation. The patient was transferred to the cardiac intensive care unit in stable condition.
I, Dr. Herbie Crowder, was present, scrubbed for, and performed all critical elements of this procedure.
Herbie Crowder MD
Cardiothoracic Surgeon
[facility]
This operative dictation was created using the [employer] dictation system. Please excuse any grammatical, typographical, or 'sound alike' errors
--- NOTE | 2024-07-02 08:54 | W.PN.UPDATE ---
Update Note
Progress Note Update
Reviewed Ms. Linares with the heart team in the preTAVR SDM meeting and confirmed a 23mm S3 via Left Transfemoral access. She will resume aspirin post TAVR. LVEDP 27mmHg. #23mm S3 (serial# [id number]) successfully deployed via (L) TF access. Post MG
7mmHg.
[2024-07-02 08:56] LABS: ACT-LR - POC 158 Seconds (116-155)
[2024-07-02] MEDS: LEVOPHED 250 IV (09:08)
--- NOTE | 2024-07-02 09:31 | CM ---
Reviewed chart. Mrs. Linares is in the operating room today. Prior to admission she resides with her spouse in a two story home with two steps to enter. Prior to admission she was independent with ambulation and adls. She does not have any DME in the
home. She has a prescription plan. Medical work-up in progress. The discharge plan is to return home with her spouse and a home visit by the Cardiothoracic Transitional Care Nurse when medically stable.
--- NOTE | 2024-07-02 09:34 | ITS.CL.TAVR ---
Mid Level Game Designer - TAVR Report
TAVR PRocedure
Procedure Report:
TRANSCATHETER AORTIC VALVE REPLACEMENT
Date of Procedure: July 02, 2024
Referring: Jeff David
Operators: Drs. Laurel Balbuena MD and Herbie Crowder MD
PROCEDURE PERFORMED:
1. Successful placement of 23 mm Anderson Elo S3 aortic valve via right common femoral approach.
PREPROCEDURE NYHA CLASS: II
DESCRIPTION OF PROCEDURE: The patient was referred for assessment of severe symptomatic aortic stenosis and following a comprehensive evaluation it was felt that transcatheter aortic valve replacement (TAVR) would be the most appropriate treatment.
Informed consent was obtained prior to the procedure. A 'time-out' was called and the procedural plan was verbally confirmed by anesthesia, surgery, perfusion, and laborer car barn staff.
Arterial and venous access site were obtained in the right common femoral artery and vein using ultrasound guidance and micropuncture technique. 6 Fr. sheaths were inserted.
A 5 Fr. transvenous pacing wire was advanced to the right ventricle where excellent pacing thresholds were obtained.
A 5 Fr. pigtail catheter was then advanced to the proximal ascending aorta / right aortic cusp where angiography was performed in multiple angles to define the co-planar angle that was most appropriate valve deployment (ROWELL 10/CLINICAL DIRECTOR 3).
Ultrasound guidance was then used to obtain arterial access in the left common femoral artery and a 4 Fr. micropuncture sheath was inserted. Angiography was performed and the arteriotomy site appeared appropriate for preclosure with two Perclose
devices. An 8 Fr sheath was then inserted back into the common femoral artery over a J-tipped guidewire. An AL1 catheter was positioned in the proximal descending aorta. An Extra Stiff 0.035' J-tip wire was inserted to provide extra-support to
facilitate the Anderson eSheath delivery. The 16 Fr. Anderson eSheath was advanced in the descending thoracic aorta.
An AL1 catheter was advanced through the Anderson eSheath over a 0.035' J-tip guide wire. The AL1 catheter was positioned just above the aortic valve. A 0.035' Straight tip wire probed the aortic valve and crossed the stenotic leaflets. The AL1
was then advanced to the mid left ventricle and a invasive left ventricular end-diastolic pressure was checked which was elevated at 27 mmHg.. An Amplatz Extra-stiff wire with a generous curved tip was then positioned in the left ventricular apex.
A 23 mm Anderson Elo S3 valve was brought to the table and the orientation of the valve on the balloon delivery system was confirmed by all operators. The Elo S3 valve was advanced through the eSheath and into the proximal descending thoracic
aorta. The Elo S3 valve was centered on the delivery balloon and the entire system was retroflexed as it crossed the aortic arch. The Elo S3 delivery system was then advanced across the stenotic valve and the 23mm Elo S3 valve was
deployed during rapid pacing. The valve deployment was uneventful. Transthoracic echocardiographic images post valve deployment revealed minimal aortic insufficiency with excellent position of the aortic prosthesis.
The Anderson balloon and delivery system were then removed. The Anderson sheath was removed and the Perclose knots were advanced to the arteriotomy site resulting in excellent hemostasis. Given intermittent high-grade AV block, the temporary
transvenous pacemaker was sutured in place via a 6 Swedish right common femoral venous sheath.
Fluoro Time: 16.7 min, Dose: 342.2 mGy, DAP : 47.98 Gy.cm2
CONCLUSIONS:
1. Severe symptomatic aortic stenosis. Successful deployment of a 23 mm Elo S3 valve with minimal aortic insufficiency post procedure
2. Successful arteriotomy closure with 2 Perclose devices.
Copy to: Jeff David
aLurel Balbuena MD, [facility], [facility]
[2024-07-02] MEDS: NSS 500 VEN SHEATH (09:39)
[2024-07-02] MEDS: LASIX 20 MG IV (09:45)
[2024-07-02] MEDS: SYNTHROID PO (10:21)
--- NOTE | 2024-07-02 11:00 | PTCARENOTE ---
Rec'd report from Sarah in the cath lab nurse. Rec'd the pt shortly after at 1035; Pt AAOx3 w/no c/o CP or SOB. Pt w/R femoral vein sheath in place w/temp pacer wires in place. Pacer box connected & keypad locked. Settings on admission to IVU at 50. Pt's
bilat groin dressings C/D/I w/no signs or symptoms of bleeding or hematoma. + peds bilat & bilat LEs warm, w/no edema. Pt's venous sheath w/NSS IVF infusing via pump at 10mLs/hr as ordered. HR in the 50's w/occasional V-pacing on telemetry
monitoring. BP stable at 137/77 on admission to the floor. Pt's daughter at bedside. Activity restrictions reiterated w/both pt & daughter & they both verbalized understanding need for bedrest & lying flat while temp pacer in place. Pt w/call rankin
in place &plan of care ongoing.
--- NOTE | 2024-07-02 13:48 | W.PN.UPDATE ---
Update Note
Progress Note Update
Patient with temporary pacemaker wire R femoral artery-VVI @ 50/MA 20. SB @ 54 with occasional paced beats. Keep NPO for possible pacemaker later this afternoon. B/L femoral sites intact w/o bleeding or hematoma.
[2024-07-02] MEDS: ANCEF 5 IV (14:38)
[2024-07-02] MEDS: FLUSH (NSS) 2 FLUSH IV (14:38)
[2024-07-02] MEDS: LOW STRENGTH ASPIRIN 81 MG PO (18:43)
[2024-07-02] MEDS: LIPITOR 40 MG PO (18:43)
--- NOTE | 2024-07-02 23:08 | PTCARENOTE ---
Received patient for the night in bed with daughters in room. R femoral venous sheath and temporary pacer wires remain in place, NSS running at 10ml/hr. R femoral dressing CDI. L femoral dressing has marked drainage that remains unchanged. Bilateral
DP pulses palpable. Patient is SR on the monitor with a 1rst degree heart block. HR in the 60s. 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 Right writs
elevated under pillow and warm blanket applied. Call rankin within reach.
[2024-07-03] VITALS (13 sets, daily range): BP systolic 108–156; BP diastolic 49–104; BMI 26.2
[2024-07-03 03:28] LABS: Hematocrit 35.1 % (37.0-47.0); Hemoglobin 11.9 g/dL (12.0-16.0); Mean Corp Hgb Conc. 33.9 g/dL (33.0-37.0); Mean Corpuscular Hgb 31.1 pg (27.0-31.0); Mean Corpuscular Volume 91.6 fL (81.0-99.0); Mean Platelet Volume 11.2 fL (7.4-10.4); Platelet Count 95 10^3/uL (130-400); Red Blood Cell Count 3.83 10^6/uL (4.20-5.40); Red Cell Dist. Width 13.6 % (11.5-14.5); White Blood Cell Count 7.6 10^3/uL (4.8-10.8)
[2024-07-03 03:47] LABS: Blood Urea Nitrogen 28 mg/dl (7-17); Calcium 8.9 mg/dl (8.4-10.2); Carbon Dioxide 25 mmol/L (22-30); Chloride 104 mmol/L (98-107); Estimated Creatinine Clearance 45 ml/min; Glucose 167 mg/dl (70-99); Potassium 3.9 mmol/L (3.5-5.1); Sodium 141 mmol/L (135-145); eGFR > 60.00
--- NOTE | 2024-07-03 04:22 | PTCARENOTE ---
R venous pacer wire still intact. KVO fluids running though sheaths at 10ml/hr. Bilateral groins CDI, minus small previous ooze to the left groin. Patient remains bedrest, no complaints at this time.
[2024-07-03] MEDS: SYNTHROID 75 MCG PO (05:29)
--- NOTE | 2024-07-03 06:12 | W.PN.CT ---
Today's Communication / Plan
-
-pod #1
-no significant issues overnight, on bedrest
-R groin with temporary pacing wire (VVI 50 backup). NPO for pacer implant
-in nsr 50s-60s with some junctional beats. New LBBB postop, old 1st degree AVB.
-not on AVN blocking meds
-diuresed 1150cc with 20 iv Lasix 07/02
-Echo today
-encourage IS
Assessment / Plan
-
- Symptomatic severe - s/p Left trans femoral TAVR with a 23 mm Anderson TAVR valve on 07/02/24, pod #1
- Intraop TTE: LVEF was 65% pre and post TAVR without inotropic support, no wma or dyskinesia. The aortic valve was well seated with trace detectable PVL and mean gradient across the new valve was 7 mmHg.
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
- Severe aortic stenosis, symptomatic
- Severe multivessel CAD (cath 04/08/24): 80-90% mid LAD, 60-70% mid RCA
- Severe GI bleed d/t AVM requiring 11 units of blood and cauterization
- History of breast cancer
- First-degree AV block
- Diaphragmatic hernia
- CKD stage III
- Hyperlipidemia
- Hypertension
- Acute on chronic congestive heart failure, systolic and diastolic, LVEDP pre-TAVR was 27 mmHg
- SEBLE
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
- Acute postop LBBB
- Mild acute postop urinary retention - resolved
Discussed patient care with: Nursing and Care Team
Subjective
-
Date of Service: July 02, 2024
Objective Data
-
Lab Results
06/22/24 08:57
06/22/24 08:57
PT 14.3 Sec (11.4-14.6) 06/22/24 08:56
INR 1.12 06/22/24 08:56
APTT 42.7 Sec (23.4-35.0) H 06/22/24 08:56
Vital Signs
Vital Signs
Temp Pulse Resp BP Pulse Ox
98.3 F 67 20 134/63 95
07/02/24 19:45 07/02/24 21:30 07/02/24 19:45 07/02/24 20:00 07/02/24 19:45
CT Intake/Output/Weight
07/02/24 07/02/24 07/03/24
06:59 18:59 06:59
Output Total 1150 / 1150
Balance -1150 / -1150
SaO2: 95
Physical Exam
-
General: Awake and AOx3
Cardiovascular: Regular rate & rhythm and No Murmurs
Respiratory: Rales (at bases. No wheeze)
Incision: Other (groins are cdi, soft, nontender, no hematoma b/l. R groin with pw)
Extremities: No Edema (2+ DPs b/l)
Data Reviewed
-
Lab Results: Results Reviewed
Medications: Active Meds Reviewed
Chest X-Ray: Report Reviewed and Image Reviewed
ECG: Report Reviewed and Image Reviewed
--- NOTE | 2024-07-03 09:34 | W.PN.ANS.POP ---
Anesthesia Post Operative
- Anesthesia Post Op Note
Vital Signs Stable-See Nursing Note: Yes
Airway Patent: Yes
Adequate Pain Control: Yes
Change in Mental Status: No
Current Postoperative Nausea & Vomiting: No
Anesthesia Complications: No
General Anesthetic Recall: No
Unplanned Admission: No
Post Op Hydration Adequate: Yes
- -
Pt awake and alert, resting comfortable with no anesthesia c/o at time of post op visit. Pt scheduled for a PPM later today.
--- NOTE | 2024-07-03 10:34 | CM ---
Reviewed chart. Met with Mrs. Irene and her daughter to review discharge plans. She states she is schedule to have a PPM insertion this a.m. She is hoping she will get to go home tomorrow. She states prior to admission she resides her spouse in a
two story with two steps to enter the home. She states she has a full fight of steps to get to bedroom/full bathroom. She states she has a powder room on the first floor. She states prior to admission she was independent with ambulation and adls.
She states she does not have any DME in the home. She states she has a prescription plan. She states her spouse will be home to assist in her care if needed. We reviewed a home visit by the Cardiothoracic Transitional Care Nurse. she is agreeable
to a home visit. Medical work-up in progress. The discharge plan is to return home with her spouse and a home visit by the Cardiothoracic Transitional Care Nurse when medically stable.
--- NOTE | 2024-07-03 10:45 | PTCARENOTE ---
Pt noted to have a stage 1, non-blanchable area on her sacrum. Pt had been turned Q2H, with pillow and air cushion. Pt noted to have a protective foam on her lower back. Skin barrier wipe applied. Will monitor.
--- NOTE | 2024-07-03 12:53 | ITS.CL.PACE ---
Director Of Retail Marketing - Pacemaker Implant
Pacemaker Implant
Procedure Report:
Date of Procedure: July 03, 2024.
Procedure: Pacemaker Implantation.
Indication: The pacemaker is for the treatment of nonreversible symptomatic bradycardia due to second and third degree atrioventricular block that developed after TAVR. New intermittent LBBB.
Performing physician: Tuan Diaz MD, [facility].
Implants:
Pulse Generator: Medtronic; Model# [id number]; Serial# [id number].
RA Lead: Medtronic; Model# 5076-45cm; Serial# [id number].
RV Lead: Medtronic; Model# 3830-69cm; Serial# [id number].
Technique: A time out was performed. The procedure site was identified. The patient was anesthetized by the anesthesia service. Preoperative cefazolin was administered. The patient was prepped and draped in the usual fashion. Local anesthetic was
applied to the left prepectoral subcutaneous tissue. A 3 inch incision was made along the left deltopectoral groove. Dissection was carried to the fascia. The left cephalic vein was easily isolated and proximal and distal control with 2-0 Vicryl
suture. Using a micropuncture needle to access the cephalic vein under direct visualization a wire was advanced into the central circulation. A 7 Fr introducer was placed to allow two 0.35 J wires to be advanced. The leads were introduced with
hemostatic peel away introducer sheaths. The RV lead was placed using utilizing the [place] delivery catheter ([id number]) that was advanced to the left bundle area as confirmed by fluoroscopy in the [place] and ROWELL projections. The lead tip was
advanced. PVC morphology was reviewed. When a satisfactory location was identified the lead was screwed into position with serial turns. After each series of turns unipolar sensed morphology and impedance, and paced morphology of V1 was analyzed.
The lead was further advanced until satisfactory morphology and electrical characteristics were confirmed. The RV lead was placed in the second location evaluated. The long guiding sheath was cut and removed from the RV without change in lead
position, impedance, sensing, or capture. The lead was sutured to the underlying pectoralis fascia with 0-silk suture. The atrial lead was then placed in the right atrial appendage. 8 volt pacing did not capture the diaphragm from either lead. The
atrial lead was secured to the pectoralis muscle and fascia with two 0-silk sutures. A subcutaneous pocket was created with Bovie cautery. Hemostasis was excellent.The leads were appropriately attached to the device. The pocket was irrigated with
antibiotic solution. The device and leads were placed in the pocket. The incision was closed in three layers with absorbable suture. Steri-strips and silver impregnated dressing were placed. Estimated blood loss was less than 10 ml. There were no
complications. Fluoroscopy time 2.4 minutes and DAP 0.925 GyCM2. The device was then interrogated after skin closure.
Lead Analysis:
RA lead: P: 4.3 mV; Threshold: 1 V @ 0.4 ms; Impedance: 456 ohms.
RV lead (bipolar): R: 18.3 mV; Threshold: 0.5 V @ 0.4 ms; Impedance: 608 ohms.
Paced QRS characteristics: V1 has Qr morphology and measures 122 ms in duration, LVAT (stim to peak V5/V6) is 53 ms, and R peak V1 to R peak V6 is 79 ms.
Final Programming: DDDR 60-130 bpm.
Conclusion: Uncomplicated Medtronic pacemaker implant. The pacing system is MRI conditional. Successful conduction system lead placement.
Recommendation: Routine post pacemaker care.
cc: Jose Pedraza DO; Jeff David MD; Laurel Balbuena MD; and Herbie Crowder MD
--- NOTE | 2024-07-03 13:25 | PTCARENOTE ---
Received pt post PPM. Left ACW w/ pressure dressing intact. Right groin dressing clean, dry and intact. VSS. Nasal O2 applied for saturation of 89-91 %. Orders noted. Will monitor.
--- NOTE | 2024-07-03 17:55 | W.PN.CARDCBS ---
Addendum entered and electronically signed by Capri Prince, DO 07/03/24 18:05:
2D echocardiogram 1 day post TF Anderson #23mm TAVR with peak/mean gradients 20/12 mmHg and trace paravalvular regurgitation. LV systolic function remains preserved.
Original Note:
Today's Communication / Plan
-
Permanent pacemaker today
Post TAVR echo today
Supportive post procedural care
Impression / Plan
-
Retail Stocker: Dr. David
Impression:
Symptomatic severe - s/p Left trans femoral TAVR with a 23 mm Anderson TAVR valve on 07/02/24, pod #1
Postoperative Intermittent high degree AV block/new left bundle branch block status post temporary transvenous pacemaker Insertion 07/02/24
Hypertension
Hyperlipidemia
Severe multivessel CAD (cath 04/08/24): 80-90% mid LAD, 60-70% mid RCA
Severe GI bleed d/t AVM requiring 11 units of blood and cauterization
Diaphragmatic hernia
CKD stage III
History of bilateral breast cancer status post lumpectomy and radiation
Hypothyroidism
SEBLE
Plan:
s/p Left trans femoral TAVR with a 23 mm Anderson TAVR valve on 07/02/24, pod #1 complicated by transient high degree AV block and new left bundle branch block Requiring implant of transvenous pacer
-Plan for permanent pacemaker implant today with Dr. Diaz and removal of transvenous pacer
-Diuresed well with IV Lasix yesterday and will reassess need tomorrow
-Post TAVR echo today
-Postprocedural supportive care
Progress Note - Retail Stocker
Subjective
Date of Service: July 03, 2024
Seen and examined lying supine. Daughter at bedside. No complaints of chest pain, shortness of breath or palpitations. Complaining of back pain secondary to having to lie flat and uncomfortable bed. N.p.o. for pacemaker.
Objective
Labs:
07/03/24 02:38
07/03/24 02:38
Labs
Hgb 11.9 g/dL (12.0-16.0) L 07/03/24 02:38
Hct 35.1 % (37.0-47.0) L 07/03/24 02:38
Plt Count 95 10^3/uL (130-400) L 07/03/24 02:38
PT 14.3 Sec (11.4-14.6) 06/22/24 08:56
INR 1.12 06/22/24 08:56
APTT 42.7 Sec (23.4-35.0) H 06/22/24 08:56
Sodium 141 mmol/L (135-145) 07/03/24 02:38
Potassium 3.9 mmol/L (3.5-5.1) 07/03/24 02:38
BUN 28 mg/dl (7-17) H 07/03/24 02:38
Creatinine 0.8 mg/dL (0.6-1.0) 07/03/24 02:38
Glucose 167 mg/dl (70-99) H 07/03/24 02:38
Vital Signs and I&O:
Vital Signs
Temp Pulse Resp BP Pulse Ox
98.3 F 68 20 126/60 94
07/03/24 15:16 07/03/24 13:15 07/03/24 15:16 07/03/24 13:15 07/03/24 15:16
Vital Signs
Temp Pulse Resp BP Pulse Ox
98.3 F 68 20 126/60 94
07/03/24 15:16 07/03/24 13:15 07/03/24 15:16 07/03/24 13:15 07/03/24 15:16
Intake & Output
07/01/24 07/02/24 07/03/24 07/04/24
06:59 06:59 06:59 06:59
Output Total 1750 / 1750
Balance -175 / -1749
Physical Exam
Physical Exam
General: No acute distress, AAOX3
Heart: Regular, positive S1/S2, No murmur or rub.
Lungs: CTA b/l, negative wheezes/rales/rhonchi
Abd: Positive BS, NT/ND, neg rebound/rigidity/guarding
Ext: No lower extremity edema. Left groin site with dressing without hematoma. Right femoral with transvenous pacer
Neuro: nonfocal
[2024-07-03] MEDS: LIPITOR 40 MG PO (18:17)
[2024-07-03] MEDS: LOW STRENGTH ASPIRIN 81 MG PO (18:17)
[2024-07-03] MEDS: ANCEF 5 IV (18:17)
--- NOTE | 2024-07-04 00:21 | W.PN.CT ---
Today's Communication / Plan
-
-No major issues overnight. Hemodynamically and neurologically intact
-S/P PPM placement yesterday 07/03/24 due to postop new LBBB/HB. Currently AV-Paced @ 65 bpm
-Pocket is C/D/I without significant hematoma
-Groins are C/D/I without significant hematoma
-Post TAVR echo yesterday 07/03/24 showed a well seated TAVR with PG/MG of 20/12 mmHg, trace AI, LVEF 60-65%, mild MR/TR
-Cont. current meds (ASA, Lipitor, Synthroid)
-OOB into chair/Ambulate
-D/C home today
Assessment / Plan
-
- Symptomatic severe - s/p Left trans femoral TAVR with a 23 mm Anderson TAVR valve on 07/02/24, pod #2
- Intraop TTE: LVEF was 65% pre and post TAVR without inotropic support, no wma or dyskinesia. The aortic valve was well seated with trace detectable PVL and mean gradient across the new valve was 7 mmHg.
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
- Severe aortic stenosis, symptomatic
- Severe multivessel CAD (cath 04/08/24): 80-90% mid LAD, 60-70% mid RCA
- Severe GI bleed d/t AVM requiring 11 units of blood and cauterization
- History of breast cancer
- First-degree AV block
- Diaphragmatic hernia
- CKD stage III
- Hyperlipidemia
- Hypertension
- Acute on chronic congestive heart failure, systolic and diastolic, LVEDP pre-TAVR was 27 mmHg
- SEBLE
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
- Acute postop junctional rhythm, bradycardia, new LBBB/HB S/P PPM placement, 07/03/24
- Mild acute postop urinary retention - resolved
Discussed patient care with: Cardiology, Nursing, Respiratory Therapy, Pharmacy and Care Team
Subjective
Procedure
Left trans femoral TAVR with a 23 mm Anderson TAVR valve on 07/02/24
-
Date of Service: July 04, 2024
Pt c/o mild incisional pain, otherwise feels well
Objective Data
-
PT 14.3 Sec (11.4-14.6) 06/22/24 08:56
INR 1.12 06/22/24 08:56
APTT 42.7 Sec (23.4-35.0) H 06/22/24 08:56
Vital Signs
Vital Signs
Temp Pulse Resp BP Pulse Ox
98.3 F 63 18 128/54 93
07/03/24 22:25 07/03/24 23:00 07/03/24 22:25 07/03/24 22:25 07/03/24 22:25
CT Intake/Output/Weight
07/03/24 07/03/24 07/04/24
06:59 18:59 06:59
Output Total 600 / 1750
Balance -600 / -1750
SaO2: 93 (RA)
Physical Exam
-
General: Awake, Oriented and AOx3
Cardiovascular: Regular rate & rhythm, No Murmurs, No Rub and No Gallop
Respiratory: Clear
Incision: Clean, Dry, Intact and Dressing Intact
Extremities: No Edema
Data Reviewed
-
Lab Results: Results Reviewed
Medications: Active Meds Reviewed
Chest X-Ray: Report Reviewed and Image Reviewed
ECG: Report Reviewed and Image Reviewed
[2024-07-04 01:51] VITALS: BP 150/68
[2024-07-04] MEDS: TYLENOL 650 MG PO (02:03)
[2024-07-04] MEDS: ANCEF 5 IV (02:03)
[2024-07-04 03:00] LABS: Hematocrit 34.1 % (37.0-47.0); Hemoglobin 11.6 g/dL (12.0-16.0); Mean Corpuscular Hgb 31.4 pg (27.0-31.0); Mean Corpuscular Volume 92.2 fL (81.0-99.0); Mean Platelet Volume 11.6 fL (7.4-10.4); Platelet Count 69 10^3/uL (130-400); Red Cell Dist. Width 13.3 % (11.5-14.5); White Blood Cell Count 6.7 10^3/uL (4.8-10.8)
--- NOTE | 2024-07-04 03:22 | PTCARENOTE ---
Received patient at change of shift. Left pacemaker pressure dressing in place, CDI. Bilateral groins without change from previous shift. Pt was medicated for pain at PPM site per JAN. V/AV paced on the monitor, HR 60s-70s. Patient walks with 1
standby assist to the bathroom.
[2024-07-04 03:32] LABS: Blood Urea Nitrogen 25 mg/dl (7-17); Calcium 8.9 mg/dl (8.4-10.2); Carbon Dioxide 27 mmol/L (22-30); Chloride 103 mmol/L (98-107); Estimated Creatinine Clearance 45 ml/min; Glucose 105 mg/dl (70-99); Magnesium 1.9 mg/dl (1.6-2.3); Potassium 4.2 mmol/L (3.5-5.1); Sodium 139 mmol/L (135-145); eGFR > 60.00
[2024-07-04 04:22] VITALS: BMI 26.4
[2024-07-04] MEDS: SYNTHROID 75 MCG PO (06:17)
[2024-07-04 07:09] VITALS: BP 138/56
--- NOTE | 2024-07-04 09:21 | W.DCSUMMARY ---
Discharge Summary
Discharge Data
Date of Admission: 07/02/24
Date of Discharge: 07/04/24
-
Pending Results: No
Hospital Course
Patient is a 88-year-old female admitted to [facility] on 07/02/2024 for TAVR. On 07/02/2024 patient was admitted to the [facility] and later that morning was brought to the cardiac Business Management Analyst where she underwent a left transfemoral
TAVR with a 23 mm Anderson valve. She tolerated the procedure well but required temporary pacing wire for sinus bradycardia. She was supported with low-dose Levophed for short time but this was discontinued postprocedure. She was seen in
consultation by electrophysiology Dr. Diaz. Her first night in the interventional care unit was uneventful. The following day on 07/03/2024 she underwent permanent pacemaker by Dr. Diaz. Pacemaker was for the treatment of nonreversible
symptomatic bradycardia due to second and third-degree atrioventricular block that developed after TAVR placement. There is a new intermittent left bundle branch block. She tolerated the pacemaker placement and her night was uneventful in the
interventional care unit. Neck
The following morning on 07/04/2024 she was afebrile her heart rate was 65, she was AV paced at 65. The echo results post TAVR showed peak and mean gradients of 20 and 12 with trace AI. This was compared to a prior echo on day of TAVR implant where
the peak and mean gradients were measured 16 and 7. Her pacemaker site was clean and dry without hematoma. Both groins were stable without hematoma.
She was given a full set of discharge instructions and a appointment for a echocardiogram in 30 days. She was also given a lab slip for blood work on 07/07/2024 to repeat a CBC to check her platelet count.
At time of discharge she was alert and oriented she was afebrile her heart rate as noted above 65 AV paced her blood pressure 150/68 and her O2 sat was noted to be 94% on room air.
Discharge Plan
-
Patient Disposition: Home (Routine Discharge)
Discharge Diagnosis/Procedures: TF TAVR 07/02, Pacemaker implant 07/03
Condition: Fair
Diet: Low Fat, Low Cholesterol and 2 Gram Sodium
Activity: As tolerated
Driving Restrictions: No driving for 1 week
Bathing Restrictions: OK to Shower
Blood Work: CBC on saturday07-07-24 and call results to office
Others Tests: 30-day follow up echocardiogram: 08/03/2024 @ 1:00 at the Hospital
Other Services: Cardiac Rehab
Wound Care: NO lotions, powders, or creams to puncture sites
Specialty Instructions: Weigh Daily- Call MD for wt gain/loss 3 lbs overnight/5 lbs in 1 week
Stand Alone Forms: DC Inst - Implanted Device
Referrals:
CT Transitional Care Nurse [Outside] - in one to two days
(
The Cardiothoracic Transitional Care Nurse will call you to set up a visit in 1-2 days.
This will include an incision check for the pacemaker)
Toshia Tavarez PA-C [Specified Professional Personl] - 08/05/24 1:20 pm
Jose Pedraza DO [Primary Care Provider] - in four to six weeks (Please make an appointment in four to six weeks. )
Prescriptions:
New
acetaminophen 325 mg Tablet
650 mg PO Q4HPRN PRN (Reason: HOLLEY, mild pain, or fever >101F) Qty: 0 0RF
Continued
levothyroxine 75 MCG tablet
75 mcg PO DAILY AT 0700
multivitamin Tablet
1 tab PO QPM
glucosamine sulfate [Glucosamine] 500 mg Tablet
1,000 mg PO BID
calcium polycarbophil [Fiber (calcium polycarbophil)] 625 mg Tablet
625 mg PO DAILY
aspirin 81 mg Tablet,Chewable
81 mg PO QPM
atorvastatin 40 mg tablet
40 mg PO QPM
Discharge Orders:
Discharge Patient (As Directed); Ordered 07/04/24
Ordered By: Myron Keller
Care Plan Goals
Care Plan Goals:
Problem: Readiness for enhanced knowledge related to diagnosis and treatment plan
Goal: Understand your diagnosis and treatment plan needs, including medications if applicable.
Instructions: Know your diagnosis, underlying causes and treatment plan options, including medications if applicable. Consult with your health care team to learn about your diagnosis and treatment plan, including medications if applicable.
Discharge Date and Time
Print Language: GREEK
--- NOTE | 2024-07-04 09:28 | W.PN.CARDCBS ---
Today's Communication / Plan
-
Stable for discharge to home on current medications
Pacemaker discharge instructions reviewed.
She was given an appointment for pacemaker check.
Impression / Plan
-
[employer]: Dr. David
Impression:
Symptomatic severe - s/p Left trans femoral TAVR with a 23 mm Anderson TAVR valve on 07/02/24, pod #1
Postoperative Intermittent high degree AV block/new left bundle branch block status post temporary transvenous pacemaker Insertion 07/02/24
Hypertension
Hyperlipidemia
Severe multivessel CAD (cath 04/08/24): 80-90% mid LAD, 60-70% mid RCA
Severe GI bleed d/t AVM requiring 11 units of blood and cauterization
Diaphragmatic hernia
CKD stage III
History of bilateral breast cancer status post lumpectomy and radiation
Hypothyroidism
SEBLE
Plan:
s/p Left trans femoral TAVR with a 23 mm Anderson TAVR valve on 07/02/24, pod #1 complicated by transient high degree AV block and new left bundle branch block requiring implant of transvenous pacer
-Underwent permanent pacemaker implant today with Dr. Diaz and removal of transvenous pacer on 07/03/24
-Post TAVR echo 07/03 shows well seated TAVR with PG/MG of 20/12 mmHg, trace AI, LVEF 60-65%, mild MR/TR
-I reviewed post pacemaker discharge instructions and arm motion restrictions. All of her questions have been answered. From a cardiology standpoint he is stable for discharge to home today.
Progress Note - [employer]
Subjective
Date of Service: July 04, 2024
She reports that she feels well, no longer short of breath.
Objective
Labs:
07/04/24 01:54
07/04/24 01:54
Labs
Hgb 11.6 g/dL (12.0-16.0) L 07/04/24 01:54
Hct 34.1 % (37.0-47.0) L 07/04/24 01:54
Plt Count 69 10^3/uL (130-400) L D 07/04/24 01:54
PT 14.3 Sec (11.4-14.6) 06/22/24 08:56
INR 1.12 06/22/24 08:56
APTT 42.7 Sec (23.4-35.0) H 06/22/24 08:56
Sodium 139 mmol/L (135-145) 07/04/24 01:54
Potassium 4.2 mmol/L (3.5-5.1) 07/04/24 01:54
BUN 25 mg/dl (7-17) H 07/04/24 01:54
Creatinine 0.8 mg/dL (0.6-1.0) 07/04/24 01:54
Glucose 105 mg/dl (70-99) H 07/04/24 01:54
Vital Signs and I&O:
Vital Signs
Temp Pulse Resp BP Pulse Ox
97.9 F 62 18 150/68 94
07/04/24 07:06 07/04/24 03:45 07/04/24 07:06 07/04/24 01:51 07/04/24 07:06
Vital Signs
Temp Pulse Resp BP Pulse Ox
97.9 F 62 18 150/68 94
07/04/24 07:06 07/04/24 03:45 07/04/24 07:06 07/04/24 01:51 07/04/24 07:06
Intake & Output
07/02/24 07/03/24 07/04/24 07/05/24
06:59 06:59 06:59 06:59
Output Total 1750 / 1750
Balance -1750 / -1750
Physical Exam
Physical Exam
General: No acute distress, AAOX3
Dressing left upper chest is clean and dry
Heart: Regular, positive S1/S2, No murmur or rub.
Lungs: CTA b/l, negative wheezes/rales/rhonchi
Abd: Positive BS, NT/ND, neg rebound/rigidity/guarding
Ext: No lower extremity edema. Left groin site with dressing without hematoma. Right femoral with transvenous pacer
Neuro: nonfocal
[2024-07-04 09:51] VITALS: BP 157/66
[2024-07-04 10:01] VITALS: BP 175/72
[2024-07-04 10:20] VITALS: BP 157/66; BP 175/72; PULSE 70; O2SAT 94; O2SAT 96
--- NOTE | 2024-07-04 12:41 | PTCARENOTE ---
d.c instructions read to pt and pt verbalized understanding. iv and tele removed. pt left with belongings from room and educational material. pt left via wheelchair with staff member. PPM site CDI.
== END 2024-07-04 12:40 | disposition home or self-care (01) | DRG 266 ==
LOC: IVU 05:39
PROVIDERS: Internal Medicine Cardiovascular Disease; Nurse Practitioner; ADMITTING PHYSICIAN Thoracic Surgery (Cardiothoracic Vascular Surgery); OTHER PHYSICIAN Internal Medicine Interventional Cardiology; PRIMARYCARE PHYSICIAN Family Medicine
PROC: 02RF38Z Replacement of Aortic Valve with Zooplastic Tissue, Percutaneous Approach (ICD-10-PCS; 2024-07-02)
PROC: 0JH606Z Insertion of Pacemaker, Dual Chamber into Chest Subcutaneous Tissue and Fascia, Open Approach (ICD-10-PCS; 2024-07-03)
PROC: 02H63JZ Insertion of Pacemaker Lead into Right Atrium, Percutaneous Approach (ICD-10-PCS; 2024-07-03)
PROC: 02HK3JZ Insertion of Pacemaker Lead into Right Ventricle, Percutaneous Approach (ICD-10-PCS; 2024-07-03)
DX: I35.0 Nonrheumatic aortic (valve) stenosis (principal); I50.43 Acute on chronic combined systolic (congestive) and diastolic (congestive) heart failure; I13.0 Hypertensive heart and chronic kidney disease with heart failure and stage 1 through stage 4 chronic kidney disease, or unspecified chronic kidney disease; I44.2 Atrioventricular block, complete; R00.1 Bradycardia, unspecified; I44.7 Left bundle-branch block, unspecified; R33.8 Other retention of urine; I25.10 Atherosclerotic heart disease of native coronary artery without angina pectoris; E03.9 Hypothyroidism, unspecified; E78.00 Pure hypercholesterolemia, unspecified; N18.30 Chronic kidney disease, stage 3 unspecified; G47.33 Obstructive sleep apnea (adult) (pediatric); Z85.3 Personal history of malignant neoplasm of breast; Z87.19 Personal history of other diseases of the digestive system; Z79.82 Long term (current) use of aspirin
CPT/HCPCS: 93308; 33208; 33361; 36415; 71045; 71046; 80048; 80053; 81003; 82248; 83036; 83735; 83880; 85025; 85027; 85347; 85610; 85730; 86850; 86900; 86901; 87070; 93005; 93306; 93321; 93325; C1760; C1769; C1785; C1887; C1892; C1894; C1898; Q9967

== ENCOUNTER 2024-07-31 16:24 | Outpatient (RCR) | payer OTHER, SELFPAY | END 2024-07-31 23:59 | disposition home or self-care (01) | LOC: CRHB 16:24 | PROVIDERS: ATTENDING PHYSICIAN Internal Medicine Cardiovascular Disease | DX: Z95.4 Presence of other heart-valve replacement (principal) | CPT/HCPCS: G0422 ==

== ENCOUNTER → 2024-08-03 12:52 | Outpatient (REF) | payer OTHER, SELFPAY | LOC: RCS 12:52 | PROVIDERS: ATTENDING PHYSICIAN Internal Medicine Cardiovascular Disease; FAMILY PHYSICIAN Family Medicine | DX: I35.0 Nonrheumatic aortic (valve) stenosis (principal); I25.10 Atherosclerotic heart disease of native coronary artery without angina pectoris | CPT/HCPCS: 93306 ==

== ENCOUNTER 2024-09-02 10:33 | Outpatient (RCR) | payer OTHER, SELFPAY | END 2024-09-02 23:59 | disposition home or self-care (01) | LOC: CRHB 10:33 | PROVIDERS: ATTENDING PHYSICIAN Internal Medicine Cardiovascular Disease | DX: Z95.4 Presence of other heart-valve replacement (principal) | CPT/HCPCS: G0422; G0423 ==

== ENCOUNTER 2024-10-02 09:37 | Outpatient (RCR) | payer OTHER, SELFPAY | END 2024-10-02 23:59 | disposition home or self-care (01) | LOC: CRHB 09:37 | PROVIDERS: ATTENDING PHYSICIAN Internal Medicine Cardiovascular Disease | DX: Z95.4 Presence of other heart-valve replacement (principal) | CPT/HCPCS: G0422; G0423 ==

== ENCOUNTER 2024-11-02 10:46 | Outpatient (RCR) | payer OTHER, SELFPAY | END 2024-11-02 23:59 | disposition home or self-care (01) | LOC: CRHB 10:46 | PROVIDERS: ATTENDING PHYSICIAN Internal Medicine Cardiovascular Disease | DX: Z95.4 Presence of other heart-valve replacement (principal) | CPT/HCPCS: G0422; G0423 ==

== ENCOUNTER → 2025-01-04 13:36 | Outpatient (REF) | payer OTHER, SELFPAY | LOC: HWRCS 13:36 | PROVIDERS: ATTENDING PHYSICIAN Internal Medicine Cardiovascular Disease; FAMILY PHYSICIAN Family Medicine | DX: Z95.2 Presence of prosthetic heart valve (principal) | CPT/HCPCS: 93306 ==

== ENCOUNTER → 2025-09-13 12:40 | Outpatient (REF) | payer OTHER, SELFPAY | LOC: HWRCS 12:40 | PROVIDERS: ATTENDING PHYSICIAN Internal Medicine Cardiovascular Disease; FAMILY PHYSICIAN Family Medicine | DX: Z95.2 Presence of prosthetic heart valve (principal); I35.0 Nonrheumatic aortic (valve) stenosis; I25.10 Atherosclerotic heart disease of native coronary artery without angina pectoris | CPT/HCPCS: 93306 ==